=== PATIENT | female | born 1965 | race Caucasian/White ===

== ENCOUNTER 2018-06-22 17:21 | Observation (INO) ==
--- NOTE | 2018-06-22 17:55 | Emergency Department Note ---
ED Disposition Clinical Impression: Preseptal cellulitis of left eye Disposition: Admitted as Observation Condition on Discharge: Good Referrals: Odette Gaitan APRN [Primary Care Provider] - Time of Disposition: 20:28 - Critical Care Critical Care Time: No Attestation: On , the high probability of a clinically significant, sudden or life threatening deterioration of the following system(s) required my full and direct attention, intervention and personal management. The time I documented below is in addition to time spent performing reported procedures but includes the following listed in this critical care notation. Medical Decision Making - Elbert Inquiry Pt receiving controlled substance: No Elbert was queried for this patient: No Vital Signs: 06/22/18 17:44 06/22/18 18:11 06/22/18 19:42 Temperature 101.8 F H 99.8 F H Temperature Source Temporal Artery Scan Oral Pulse Rate [Right Brachial] 108 H Respiratory Rate 18 Blood Pressure [Right Arm] 152/85 H Blood Pressure Mean [Right Arm] 107 Blood Pressure Source [Right Arm] Automatic Cuff Blood Pressure Position [Right Arm] Sitting 02 Sat by Pulse Oximetry 90 L 94 L Oxygen Delivery Method Room Air Nasal Cannula Oxygen Flow Rate (LPM) 5 06/22/18 19:44 Temperature Temperature Source Pulse Rate [Right Brachial] 90 Respiratory Rate 18 Blood Pressure [Right Arm] 152/74 H Blood Pressure Mean [Right Arm] 100 Blood Pressure Source [Right Arm] Blood Pressure Position [Right Arm] 02 Sat by Pulse Oximetry 91 L Oxygen Delivery Method Nasal Cannula Oxygen Flow Rate (LPM) 4 - Lab Data Lab Results 06/22/18 17:50: WBC 9.6, RBC 4.37, Hgb 13.4, Hct 39.3, MCV 89.8, MCH 30.6, MCHC 34.1, RDW 14.3, Plt Count 236, MPV 7.7, Neut % (Auto) 79.1, Lymph % (Auto) 14.3, [place] % (Auto) 5.6, Eos % (Auto) 0.9, Baso % (Auto) 0.1, Neut # (Auto) 7.6, Lymph # (Auto) 1.4, [place] # (Auto) 0.5, Eos # (Auto) 0.1, Baso # (Auto) 0.0 06/22/18 17:50: Sodium 140, Potassium 3.7, Chloride 100, Carbon Dioxide 28, Anion Gap 15.7 H, BUN 27 H, Creatinine 1.21 H, Estimated Creat Clear 54, Estim ated GFR 46 L, Est GFR ( Amer) 56 L, Glucose 161 H, Calcium 9.3, Total Bilirubin 0.6, AST 13 L, ALT 21, Alkaline Phosphatase 97, Total Protein 8.3 H, Albumin 2.9 L, Globulin 5.4 H, Albumin/Globulin Ratio 0.5 L Result diagrams: 06/22/18 17:50 06/22/18 17:50 Orders (Tests/Meds): ED MEDICATIONS Generic Name Dose Route Start Last Admin Trade Name Ade PRN Reason Stop Dose Admin Sodium Chloride 1,000 mls @ 999 mls/hr 06/22/18 18:00 06/22/18 17:55 Sod Chlor 0.9% 1000ml Bag IV 06/22/18 19:00 999 mls/hr .Q1H1M ELIZABETH Administration Ceftriaxone Sodium 2 gm/ 100 mls @ 200 mls/hr 06/22/18 18:00 06/22/18 18:09 Sodium Chloride IV 07/06/18 17:59 200 mls/hr Q24H ELIZABETH Administration Protocol Miscellaneous 1 each 06/22/18 20:30 Vancomycin Consult Request * 07/22/18 20:29 CONSULT PHARMACY ELIZABETH Discontinued Medications Generic Name Dose Route Start Last Admin Trade Name Ade PRN Reason Stop Dose Admin Acetaminophen 1,000 mg 06/22/18 18:06 06/22/18 18:09 Tylenol 500mg Tablet PO 06/22/18 18:07 1,000 mg ONCE ONE Administration Ibuprofen 600 mg 06/22/18 18:07 06/22/18 18:09 Motrin 600mg Tablet PO 06/22/18 18:08 600 mg ONCE ONE Administration Iopamidol 75 ml 06/22/18 19:28 06/22/18 19:29 [id number]; 75ml Vial IV 06/22/18 19:29 75 ml ONCE ONE Administration Protocol Ondansetron HCl 4 mg 06/22/18 17:48 06/22/18 17:55 Zofran 4mg/2ml Vial IV 06/22/18 17:49 4 mg ONCE ONE Administration Sodium Chloride 10 ml 06/22/18 19:28 06/22/18 19:29 Rad-Saline Flush 10ml Syringe IV 06/22/18 19:29 10 ml ONCE ONE Administration ORDERS Category Date Time Status CT orbit BI w con Stat Cat Scan 06/22/18 17:45 Taken CXR 2 view (NOT portable) [XR chest 2V] Stat Exams 06/22/18 17:46 Taken Blood Culture Stat Micro 06/22/18 17:50 Received General Adult HPI - General Stated complaint: Eye swelling, weakness, Soa Time Seen by Provider: 06/22/18 17:53 - Related Data Home Medications Medication Instructions Recorded Confirmed Furosemide [Lasix 20mg tab] 20 mg PO DAILY 10/05/17 06/22/18 Insulin Glargine,Hum.rec.anlog 60 unit SQ HS 10/05/17 06/22/18 [Lantus Insulin 100units/mL 10mL vial] Insulin Lispro [HumaLOG 100 30 unit SQ TID 10/05/17 06/22/18 units/mL 3mL vial (SSI)] Lisinopril [Lisinopril 40mg Tablet] 40 mg PO DAILY 10/05/17 06/22/18 Metformin HCl [Glucophage 500mg 1,000 mg PO BID 10/05/17 06/22/18 Tablet] PARoxetine HCl [Paxil] 20 mg PO POSTTR 10/05/17 06/22/18 Pioglitazone HCl [Actos] 30 mg PO DAILY 10/05/17 06/22/18 Allergies Allergy/AdvReac Type Severity Reaction Status Date / Time Sulfa (Sulfonamide Allergy Intermediate I-RASH Verified 10/05/17 23:58 Antibiotics) [SULFA (SULFONAMIDE ANTIBIOTICS)] [facility] History - Hepatitis A Screen Attestation statement:: This patient has been screened for Hepatitis A risk factors. I have reviewed the patient's past medical history: Yes - Social History Alcohol Intake: never ROS Obtained: Yes All systems reviewed & no additional complaints - Constitutional Constitutional: Reports system reviewed and no additional complaints, except as docu, Reports chills, Reports fever(s), Reports headache(s), Reports lethargy, Reports malaise - Eyes Eyes: Reports system reviewed and no additional complaints, except as docu, Reports eye discharge, Reports irritation, Reports itchy eyes, Reports eye pain - ENT Ears, Nose, Mouth, and Throat: Reports system reviewed and no additional complaints, except as docu - Cardiovascular Cardiovascular: Reports system reviewed and no additional complaints, except as docu, Denies chest pain, Denies chest pain at rest, Denies lightheadedness, Denies palpitations, Denies pedal edema, Denies rapid heart rate - Respiratory Respiratory: Yes system reviewed and no additional complaints, except as docu, No chest congestion, Yes dyspnea, Yes dyspnea on exertion, No coughing up blood, No wheezing - Gastrointestinal Gastrointestingal: Reports: system reviewed and no additional complaints, except as docu, nausea, vomiting. Denies: diarrhea - Genitourinary Male Genitourinary: Reports system reviewed and no additional complaints, except as docu Female Genitourinary: Reports system reviewed and no additional complaints, except as docu, Denies difficulty voiding, Denies dysuria, Denies flank pain - Musculoskeletal Musculoskeletal: Reports system reviewed and no additional complaints, except as docu, Denies stiffness, Denies tingling - Integumentary/Breasts Skin/Breast: Reports system reviewed and no additional complaints, except as docu, Reports change in skin color, Reports itching, Reports rash, Reports skin pain, Reports skin swelling - Neurologic Neurologic: Reports system reviewed and no additional complaints, except as docu, Denies unsteadiness, Denies dizziness, Denies focal weakness, Denies lack of coordination, Denies seizure-like activity, Denies tremor(s), Denies vertigo - Hematologic/Lymphatic Henatologic/Lymphatic: Reports system reviewed and no additional complaints, except as docu, Denies easy bleeding, Denies easy bruising, Denies lymphadenopathy Physical Exam - General General appearance: alert, anxious, in distress - Head Head exam: atraumatic, normocephalic, other (erythema, cellulitic appearance left landon-orbital) - Eye Eye exam: Present: normal appearance, PERRL, EOMI - ENT ENT exam: Present: normal oropharynx, mucous membranes moist, mucous membranes dry - Neck Neck exam: Present: normal inspection, full ROM, trachea midline. Absent: meningismus, lymphadenopathy - Chest Chest inspection: Present: normal inspection, symmetric chest wall rise. Absent: tenderness - Respiratory Respiratory exam: Present: normal lung sounds bilaterally. Absent: respiratory distress - Cardiovascular Cardiovascular exam: Present: regular rate, normal rhythm. Absent: JVD - Abdominal Exam Abdominal exam: Present: soft, normal bowel sounds. Absent: distention, tenderness, guarding - Extremities Exam Extremities exam: Present: normal inspection, full ROM, normal capillary refill. Absent: calf tenderness - Neurological Exam Neurological exam: Present: alert, oriented X3 - Psychiatric Psychiatric exam: Present: normal affect, normal mood - Skin Skin exam: Present: warm, rash, erythema. Absent: dry, intact (landon-orbital erythema, weeping), normal color
[2018-06-22 18:08] LABS: Basophils % 0.1 % (0.1-2.0); Eosinophils # 0.1 K/mm3 (0.0-0.4); Eosinophils % 0.9 % (0.1-12.0); Hematocrit 39.3 % (37.0-47.0); Hemoglobin 13.4 g/dL (12.2-16.2); Lymphocytes # 1.4 K/mm3 (0.7-4.5); Lymphocytes % 14.3 % (10-50); Mean Corpuscular HGB Conc 34.1 g/dL (31.8-35.4); Mean Corpuscular Hemoglobin 30.6 pg (27.0-31.2); Mean Corpuscular Volume 89.8 fl (81-99); Mean Platelet Volume 7.7 fl (7.4-10.4); Monocytes # 0.5 K/mm3 (0.1-1.0); Monocytes % 5.6 % (1.7-9.3); Neutrophils # 7.6 K/mm3 (1.8-7.8); Neutrophils % 79.1 % (37.0-80.0); Platelet Count 236 K/mm3 (142-424); Red Blood Count 4.37 M/mm3 (4.20-5.40); Red Cell Distribution Width 14.3 % (11.5-17.5); White Blood Count 9.6 K/mm3 (4.8-10.8)
[2018-06-22 18:20] LABS: Albumin Level 2.9 gm/dL (3.4-5.0); Albumin/Globulin Ratio 0.5 (1.1-1.8); Anion Gap 15.7 mEq/L (5-15); Bilirubin,Total 0.6 mg/dL (0.2-1.0); Calcium 9.3 mg/dL (8.5-10.1); Globulin 5.4 gm/dl (1.3-3.2); Potassium 3.7 mmoL/L (3.5-5.1); Total Protein,Serum 8.3 gm/dL (6.4-8.2)
[2018-06-23 06:27] LABS: Basophils % 0.3 % (0.1-2.0); Eosinophils # 0.1 K/mm3 (0.0-0.4); Hemoglobin 12.3 g/dL (12.2-16.2); Lymphocytes # 1.8 K/mm3 (0.7-4.5); Lymphocytes % 18.6 % (10-50); Mean Corpuscular HGB Conc 34.1 g/dL (31.8-35.4); Mean Corpuscular Hemoglobin 30.5 pg (27.0-31.2); Mean Corpuscular Volume 89.4 fl (81-99); Mean Platelet Volume 7.7 fl (7.4-10.4); Monocytes # 0.7 K/mm3 (0.1-1.0); Monocytes % 7.5 % (1.7-9.3); Neutrophils % 72.6 % (37.0-80.0); Platelet Count 199 K/mm3 (142-424); Red Blood Count 4.02 M/mm3 (4.20-5.40); Red Cell Distribution Width 14.3 % (11.5-17.5); White Blood Count 9.7 K/mm3 (4.8-10.8)
[2018-06-23 06:39] LABS: Anion Gap 16.6 mEq/L (5-15); Potassium 4.6 mmoL/L (3.5-5.1)
[2018-06-23 06:48] LABS: Calcium 8.2 mg/dL (8.5-10.1)
--- NOTE | 2018-06-23 07:19 | History & Physical Report ---
*Admission Date: 06/22/18 *Chief complaint: Pain and swelling around left eye *History of present illness: 53-year-old female with diabetes and history of stroke presented to the emergency department with a 2-3-day history of left-sided facial pain with onset of swelling and redness around the left eye. Patient was seen late in the office last week believing she had an ear infection on the left due to some pain anterior to the left ear. Patient did not have any identifiable source of infection. However yesterday during the day the patient developed rapid onset of swelling and pain around the left eye with erythematous skin changes. She presented to the emergency department where she was identified as having cellulitis. A CT scan has showed a preseptal cellulitis. Patient has been admitted for IV antibiotics. From late last night to early this morning the patient states there has not really been any significant change in her cellulitis. She does not recall having any fevers. She denies chills. Vision is affected because of the swelling around the left eye. [facility] History I have reviewed the patient's past medical history: Yes Medical History: Reports:: Diabetes Mellitus Type 2, Hyperlipidemia, Hypertension Denies:: Cancer, Diabetes Mellitus Type 1, MRSA Have you ever received a pneumonia vaccine?: No Have you received a flu vaccine this season?: Yes Other Medical History: Reports: Sinus Problems Other Surgeries: Yes: Other (gastric sleeve, sinus sx) Amputation: No Fractures: No - *Social History Educational Level: Completed College Smoking Status: Never smoker Alcohol Intake: never Occupational Status: disabled Housing: house Household Members: children Travel in the last 8 weeks: None - Psychiatric History Expresses thoughts of harming self/others: None Suicide Plan Description: No Plan *Family Hx:: Coronary Artery Disease, Heart Attack, Hyperlipidemia, Hypertension, Kidney Disease, Stroke Review of Systems - Review of Systems Review of systems:: pertinent systems reviewed and negative unless documented below - Constitutional Denies body ache(s), Denies chills, Denies fever(s) - *Musculoskeletal Reports muscle weakness (Residual left arm and leg weakness from prior stroke) - Integumentary/Breasts Reports other Comments: Psoriatic plaques - *Neurologic Reports headache(s), Denies unsteadiness, Denies dizziness, Denies localized weakness, Denies lack of coordination, Denies seizure-like activity, Denies tingling, Denies tremor(s), Denies dizziness Meds Home Medications Medication Instructions Recorded Confirmed Type Furosemide [Lasix 20mg tab] 20 mg PO DAILY 10/05/17 06/23/18 History Insulin Glargine,Hum.rec.anlog 60 unit SQ HS 10/05/17 06/23/18 History [Lantus Insulin 100units/mL 10mL vial] Insulin Lispro [HumaLOG 100 30 unit SQ TIDWM 10/05/17 06/23/18 History units/mL 3mL vial (SSI)] Lisinopril [Lisinopril 40mg Tablet] 40 mg PO DAILY 10/05/17 06/23/18 History Metformin HCl [Glucophage 500mg 1,000 mg PO BID 10/05/17 06/23/18 History Tablet] PARoxetine HCl [Paxil] 20 mg PO HS 10/05/17 06/23/18 History Pioglitazone HCl [Actos] 30 mg PO DAILY 10/05/17 06/23/18 History Allergies Allergy/AdvReac Type Severity Reaction Status Date / Time Sulfa (Sulfonamide Allergy Intermediate I-RASH Verified 10/05/17 23:58 Antibiotics) [SULFA (SULFONAMIDE ANTIBIOTICS)] Exam Vital signs and Labs for Last 24 Hours: Temp Pulse Resp BP Pulse Ox 98.0 F 86 20 160/77 H 97 06/23/18 04:00 06/23/18 04:00 06/23/18 04:00 06/23/18 04:00 06/23/18 04:00 Laboratory Results - last 24 hr 06/22/18 17:50: WBC 9.6, RBC 4.37, Hgb 13.4, Hct 39.3, MCV 89.8, MCH 30.6, MCHC 34.1, RDW 14.3, Plt Count 236, MPV 7.7, Neut % (Auto) 79.1, Lymph % (Auto) 14.3, [place] % (Auto) 5.6, Eos % (Auto) 0.9, Baso % (Auto) 0.1, Neut # (Auto) 7.6, Lymph # (Auto) 1.4, [place] # (Auto) 0.5, Eos # (Auto) 0.1, Baso # (Auto) 0.0 06/22/18 17:50: Sodium 140, Potassium 3.7, Chloride 100, Carbon Dioxide 28, Anion Gap 15.7 H, BUN 27 H, Creatinine 1.21 H, Estimated Creat Clear 54, Estimated GFR 46 L, Est GFR ( Amer) 56 L, Glucose 161 H, Calcium 9.3, Total Bilirubin 0.6, AST 13 L, ALT 21, Alkaline Phosphatase 97, Total Protein 8.3 H, Albumin 2.9 L, Globulin 5.4 H, Albumin/Globulin Ratio 0.5 L 06/22/18 21:34: POC Glucose 189 H 06/23/18 05:45: WBC 9.7, RBC 4.02 L, Hgb 12.3, Hct 36.0 L, MCV 89.4, MCH 30.5, MCHC 34.1, RDW 14.3, Plt Count 199, MPV 7.7, Neut % (Auto) 72.6, Lymph % (Auto) 18.6, [place] % (Auto) 7.5, Eos % (Auto) 1.0, Baso % (Auto) 0.3, Neut # (Auto) 7.0, Lymph # (Auto) 1.8, [place] # (Auto) 0.7, Eos # (Auto) 0.1, Baso # (Auto) 0.0 06/23/18 05:45: Sodium 141, Potassium 4.6 D, Chloride 105, Carbon Dioxide 24, Anion Gap 16.6 H, BUN 26 H, Creatinine 1.13 H, Estimated Creat Clear 57, Estimated GFR 50 L, Est GFR ( Amer) 61, Glucose 180 H, Calcium 8.2 L D I & O for Last 24 hours: Intake & Output 06/20/18 06/21/18 06/22/18 06/23/18 11:59 11:59 11:59 11:59 Intake Total 1391 / 1391 Balance 1391 / 1391 Weight 324 lb 9 oz Narrative: Patient is awake and alert. There is noticeable erythema and swelling of the periorbital tissues of the left. Patient's eye is swollen shut. There is no fluid draining from the left eye. She has a psoriatic plaque on the left frontal scalp that is nontender. She has an enlarged preauricular lymph node on the left that is mildly tender. Inferior periorbital tissues are tender to touch as well. Tympanic membranes did not have any erythema. Oropharynx is moist and clear. Lungs are clear to auscultation. Heart has a regular rate and rhythm. Abdomen is soft and nontender Assessment and Plan (1) Preseptal cellulitis of left eye Current visit: Yes Status: Acute Category: Medical Code(s): L03.213 - Periorbital cellulitis (2) Diabetes mellitus with hyperglycemia Current visit: Yes Status: Acute Category: Medical Code(s): E11.65 - Type 2 diabetes mellitus with hyperglycemia (3) Psoriasis Current visit: Yes Status: Acute Category: Medical Code(s): L40.9 - Psoriasis, unspecified - Assessment and plan all Dx Assessment and Plan for all problems:: I suspect her cellulitis is the likely portal of entry for infection. We did discuss referral to dermatology in the future. Patient will be continued on IV antibiotics including vancomycin and Unasyn. Patient will be given home medications for her diabetes mellitus. She has been encouraged to get out of bed and ambulate. Her appetite is at baseline. IV fluids will be discontinued.
--- NOTE | 2018-06-23 07:28 | Pharmacy Consult Notes ---
[facility] Pharmacy VTE Monitoring - Patient Demographics Admission date: 06/22/18 Report Date: 06/23/18 Time: 07:28 Allergies/Adverse Reactions: Patient Allergies Sulfa (Sulfonamide Antibiotics) [SULFA (SULFONAMIDE ANTIBIOTICS)] Allergy (Intermediate, Verified 10/05/17 23:58) I-RASH Height: 1.73 m Weight: 147.219 kg Patient Problems: Current Active Problems Preseptal cellulitis of left eye (Acute) Diabetes mellitus with hyperglycemia (Acute) Psoriasis (Acute) - VTE Risk Labs: VTE Related Lab Results Hgb 12.3 g/dL (12.2-16.2) 06/23/18 05:45 Hct 36.0 % (37.0-47.0) L 06/23/18 05:45 Plt Count 199 K/mm3 (142-424) 06/23/18 05:45 BUN 26 mg/dL (7-18) H 06/23/18 05:45 Creatinine 1.13 mg/dL (0.55-1.02) H 06/23/18 05:45 Estimated Creat Clear 57 mL/min (50-200) 06/23/18 05:45 VTE Score: 7 VTE Risk Level: Moderate Risk - Prophylaxis VTE Prophylaxis Ordered?: Yes Types of VTE Prophylaxis: TEDS Knee High Location of Applied Device: Bilateral Lower Extremeties - VTE Diagnosis Confirmed Treatment or plan recommended: Continue Current Treatment
--- NOTE | 2018-06-23 08:28 | Pharmacy Consult Notes ---
- Pharmacy Consult Date: 06/23/18 Time: 08:26 Referring provider: DR. BUSTAMANTE Reason for Consult:: VANCOMYCIN DOSING Allergies and ADEs:: Allergies Allergy/AdvReac Type Severity Reaction Status Date / Time Sulfa (Sulfonamide Allergy Intermediate I-RASH Verified 10/05/17 23:58 Antibiotics) [SULFA (SULFONAMIDE ANTIBIOTICS)] Home Medications:: Home Medications Medication Instructions Recorded Confirmed Type Furosemide [Lasix 20mg tab] 20 mg PO DAILY 10/05/17 06/23/18 History Insulin Glargine,Hum.rec.anlog 60 unit SQ HS 10/05/17 06/23/18 History [Lantus Insulin 100units/mL 10mL vial] Insulin Lispro [HumaLOG 100 30 unit SQ TIDWM 10/05/17 06/23/18 History units/mL 3mL vial (SSI)] Lisinopril [Lisinopril 40mg Tablet] 40 mg PO DAILY 10/05/17 06/23/18 History Metformin HCl [Glucophage 500mg 1,000 mg PO BID 10/05/17 06/23/18 History Tablet] PARoxetine HCl [Paxil] 20 mg PO HS 10/05/17 06/23/18 History Pioglitazone HCl [Actos] 30 mg PO DAILY 10/05/17 06/23/18 History Height: 1.73 m Weight: 147.219 kg Laboratory Results:: Laboratory Results - last 24 hr 06/22/18 17:50: WBC 9.6, RBC 4.37, Hgb 13.4, Hct 39.3, MCV 89.8, MCH 30.6, MCHC 34.1, RDW 14.3, Plt Count 236, MPV 7.7, Neut % (Auto) 79.1, Lymph % (Auto) 14.3, [place] % (Auto) 5.6, Eos % (Auto) 0.9, Baso % (Auto) 0.1, Neut # (Auto) 7.6, Lymph # (Auto) 1.4, [place] # (Auto) 0.5, Eos # (Auto) 0.1, Baso # (Auto) 0.0 06/22/18 17:50: Sodium 140, Potassium 3.7, Chloride 100, Carbon Dioxide 28, Anion Gap 15.7 H, BUN 27 H, Creatinine 1.21 H, Estimated Creat Clear 54, Estimated GFR 46 L, Est GFR ( Amer) 56 L, Glucose 161 H, Calcium 9.3, Total Bilirubin 0.6, AST 13 L, ALT 21, Alkaline Phosphatase 97, Total Protein 8.3 H, Albumin 2.9 L, Globulin 5.4 H, Albumin/Globulin Ratio 0.5 L 06/22/18 21:34: POC Glucose 189 H 06/23/18 05:45: WBC 9.7, RBC 4.02 L, Hgb 12.3, Hct 36.0 L, MCV 89.4, MCH 30.5, MCHC 34.1, RDW 14.3, Plt Count 199, MPV 7.7, Neut % (Auto) 72.6, Lymph % (Auto) 18.6, [place] % (Auto) 7.5, Eos % (Auto) 1.0, Baso % (Auto) 0.3, Neut # (Auto) 7.0, Lymph # (Auto) 1.8, [place] # (Auto) 0.7, Eos # (Auto) 0.1, Baso # (Auto) 0.0 06/23/18 05:45: Sodium 141, Potassium 4.6 D, Chloride 105, Carbon Dioxide 24, Anion Gap 16.6 H, BUN 26 H, Creatinine 1.13 H, Estimated Creat Clear 57, Estimated GFR 50 L, Est GFR ( Amer) 61, Glucose 180 H, Calcium 8.2 L D Medical History: Reports:: Diabetes Mellitus Type 2, Hyperlipidemia, Hypertension Denies:: Cancer, Diabetes Mellitus Type 1, MRSA Assessment and Plan (1) Preseptal cellulitis of left eye Current visit: Yes Status: Acute Category: Medical Code(s): L03.213 - Periorbital cellulitis (2) Diabetes mellitus with hyperglycemia Current visit: Yes Status: Acute Category: Medical Code(s): E11.65 - Type 2 diabetes mellitus with hyperglycemia (3) Psoriasis Current visit: Yes Status: Acute Category: Medical Code(s): L40.9 - Psoriasis, unspecified - Assessment and plan all Dx Assessment and Plan for all problems:: BASED ON PATIENT'S FACTORS, RECOMMEND CONTINUING WITH VANCOMYCIN 2500 MG Q18H. PHARMACY WILL FOLLOW DAILY AND ADJUST APPROPRIATE. NIALL GIRON, AISHAD
--- NOTE | 2018-06-24 06:40 | Progress Note ---
Internal Medicine - PN: Subj *Date: 06/24/18 *Time: 06:38 Interval history: Patient has no complaints this morning. She feels like the swelling around her left eye is beginning to improve and the skin is less taut. Exam Vital signs and Labs for Last 24 Hours: Temp Pulse Resp BP Pulse Ox 98.6 F 81 20 136/50 L 90 L 06/23/18 19:24 06/23/18 21:25 06/23/18 21:25 06/23/18 19:24 06/23/18 21:25 Laboratory Results - last 24 hr 06/23/18 05:45: Sodium 141, Potassium 4.6 D, Chloride 105, Carbon Dioxide 24, Anion Gap 16.6 H, BUN 26 H, Creatinine 1.13 H, Estimated Creat Clear 57, Estimated GFR 50 L, Est GFR ( Amer) 61, Glucose 180 H, Calcium 8.2 L D 06/23/18 06:01: POC Glucose 195 H 06/23/18 11:01: POC Glucose 224 H 06/23/18 16:32: POC Glucose 128 H 06/23/18 21:41: POC Glucose 175 H I & O for Last 24 hours: Intake & Output 06/21/18 06/22/18 06/23/18 06/24/18 11:59 11:59 11:59 11:59 Intake Total 1631 / 1631 1060 / 1060 Balance 1631 / 1631 1060 / 1060 Weight 324 lb 9 oz 324 lb 8.997 oz Narrative: She looks well. The periorbital edema around the left eye is improving. There is less induration around the eye. Erythema remains about the same as yesterday Assessment and Plan (1) Preseptal cellulitis of left eye Current visit: Yes Status: Acute Category: Medical Code(s): L03.213 - Periorbital cellulitis (2) Diabetes mellitus with hyperglycemia Current visit: Yes Status: Acute Category: Medical Code(s): E11.65 - Type 2 diabetes mellitus with hyperglycemia (3) Psoriasis Current visit: Yes Status: Acute Category: Medical Code(s): L40.9 - Psoriasis, unspecified - Assessment and plan all Dx Assessment and Plan for all problems:: Continue IV Unasyn and vancomycin. Patient is showing early signs of improvement.
--- NOTE | 2018-06-24 10:16 | Pharmacy Consult Notes ---
- Pharmacy Consult Date: 06/24/18 Time: 10:14 Referring provider: DR. BUSTAMANTE Reason for Consult:: VANCOMYCIN TROUGH LEVEL Allergies and ADEs:: Allergies Allergy/AdvReac Type Severity Reaction Status Date / Time Sulfa (Sulfonamide Allergy Intermediate I-RASH Verified 10/05/17 23:58 Antibiotics) [SULFA (SULFONAMIDE ANTIBIOTICS)] Home Medications:: Home Medications Medication Instructions Recorded Confirmed Type Insulin Glargine,Hum.rec.anlog 60 unit SQ HS 10/05/17 06/23/18 History [Lantus Insulin 100units/mL 10mL vial] Insulin Lispro [HumaLOG 100 30 unit SQ TIDWM 10/05/17 06/23/18 History units/mL 3mL vial (SSI)] Lisinopril [Lisinopril 40mg Tablet] 40 mg PO DAILY 10/05/17 06/23/18 History Metformin HCl [Glucophage 500mg 1,000 mg PO BID 10/05/17 06/23/18 History Tablet] PARoxetine HCl [Paxil] 20 mg PO HS 10/05/17 06/23/18 History Pioglitazone HCl [Actos] 30 mg PO DAILY 10/05/17 06/23/18 History Aspirin [Aspirin 81mg EC Tab] 81 mg PO DAILY 06/23/18 06/23/18 History Atorvastatin Calcium [Atorvastatin 40 mg PO DAILY 06/23/18 06/23/18 History 40mg Tab] Cholecalciferol (Vitamin D3) 50,000 unit PO WEEKLY 06/23/18 06/23/18 History [Vitamin D3 50,000 unit Cap] Cyanocobalamin (Vitamin B-12) 1,000 mcg PO DAILY 06/23/18 06/23/18 History [Vitamin B-12 1000mcg Tablet] Furosemide [Furosemide 40MG tAB] 40 mg PO DAILY 06/23/18 06/23/18 History Loratadine [Claritin] 10 mg PO DAILY 06/23/18 06/23/18 History Montelukast Sodium [Montelukast 10 mg PO HS 06/23/18 06/23/18 History 10mg Tab] [place]-3/Dha/Epa/Fish Oil [Fish Oil 2,000 mg PO BID 06/23/18 06/23/18 History 1,000 mg Softgel] Height: 1.73 m Weight: 148.778 kg Laboratory Results:: Laboratory Results - last 24 hr 06/23/18 06:01: POC Glucose 195 H 06/23/18 11:01: POC Glucose 224 H 06/23/18 16:32: POC Glucose 128 H 06/23/18 21:41: POC Glucose 175 H 06/24/18 06:08: POC Glucose 165 H 06/24/18 08:58: Vancomycin Trough 18.3 Medical History: Reports:: Diabetes Mellitus Type 2, Hyperlipidemia, Hypertension Denies:: Cancer, Diabetes Mellitus Type 1, MRSA Assessment and Plan (1) Preseptal cellulitis of left eye Current visit: Yes Status: Acute Category: Medical Code(s): L03.213 - Periorbital cellulitis (2) Diabetes mellitus with hyperglycemia Current visit: Yes Status: Acute Category: Medical Code(s): E11.65 - Type 2 diabetes mellitus with hyperglycemia (3) Psoriasis Current visit: Yes Status: Acute Category: Medical Code(s): L40.9 - Psoriasis, unspecified - Assessment and plan all Dx Assessment and Plan for all problems:: BASED ON VANCOMYCIN TROUGH LEVEL AND PATIENT FACTORS, RECOMMEND EXTENDING THE INTERVAL TO VANCOMYCIN 2500 MG IV Q24H. PHARMACY WILL CONTINUE TO MONITOR DAILY AND ADJUST APPROPRIATE.
--- NOTE | 2018-06-24 16:02 | Discharge Summary ---
General - General Admission date:: 06/22/18 Discharge date: 06/24/18 HPI HPI: 53-year-old female with diabetes and history of stroke presented to the emergency department with a 2-3-day history of left-sided facial pain with onset of swelling and redness around the left eye. Patient was seen late in the office last week believing she had an ear infection on the left due to some pain anterior to the left ear. Patient did not have any identifiable source of infection. However yesterday during the day the patient developed rapid onset of swelling and pain around the left eye with erythematous skin changes. She presented to the emergency department where she was identified as having cellulitis. A CT scan has showed a preseptal cellulitis. Patient has been admitted for IV antibiotics. From late last night to early this morning the patient states there has not really been any significant change in her cellulitis. She does not recall having any fevers. She denies chills. Vision is affected because of the swelling around the left eye. Hospital Course Hospital Course: Patient was admitted to 2nd floor medical surgical unit for administration of IV antibiotics unasyn, rocephin, and vancomycin. She has been responding well and planned to continue with this treatment but IV access was lost and not regained through multiple attempts. Oral doxy and augmentin were given today. Patient feels up to going home this evening if appropriate. Objective Vital signs: Temp Pulse Resp BP Pulse Ox 97.8 F 78 18 119/41 L 92 L 06/24/18 08:00 06/24/18 08:00 06/24/18 08:00 06/24/18 08:00 06/24/18 08:00 no acute distress - *Routine HEENT Exam Comments: left facial/oribital swelling any erythema noted, patient is able to slightly open left eye now - *Routine Neck Exam Present: supple - *Routine Respiratory Exam Present: CTA bilaterally. Absent: accessory muscle use - *Routine Cardiovascular Exam Present: RRR, Normal S1, Normal S2. Absent: bradycardia, tachycardia - *Routine Abdominal Exam Present: soft, normoactive bowel sounds. Absent: tenderness - *Routine Extremities Exam Absent: edema - *Routine Neurological Exam Present: alert, oriented X3 - Routine Psychiatric Exam Present: normal affect Results Labs on day of discharge: Labs from last 24 hours 06/24/18 06/24/18 06/24/18 12:11 08:58 08:28 POC Glucose 116 H 249 H Vancomycin Trough 18.3 06/24/18 06/23/18 06/23/18 06:08 21:41 16:32 POC Glucose 165 H 175 H 128 H Vancomycin Trough 06/23/18 06:01 POC Glucose 195 H Vancomycin Trough DS: Diagnosis - Discharge Diagnosis (1) Preseptal cellulitis of left eye Status: Acute (2) Diabetes mellitus with hyperglycemia Status: Acute (3) Psoriasis Status: Acute Discharge Plan - Patient Discharge Instructions ACTIVITY: Continue current activity Patient Instructions: DI for Orbital Cellulitis - Follow up Plan Follow up with: Hilaria Craven APRN [Nurse Practitioner] - 06/27/18 9:00 am Disposition: Home, Self-Correction Medications: Home Medications Medication Instructions Recorded Confirmed Type Insulin Glargine,Hum.rec.anlog 60 unit SQ HS 10/05/17 06/23/18 History [Lantus Insulin 100units/mL 10mL vial] Insulin Lispro [HumaLOG 100 30 unit SQ TIDWM 10/05/17 06/23/18 History units/mL 3mL vial (SSI)] Lisinopril [Lisinopril 40mg Tablet] 40 mg PO DAILY 10/05/17 06/23/18 History Metformin HCl [Glucophage 500mg 1,000 mg PO BID 10/05/17 06/23/18 History Tablet] PARoxetine HCl [Paxil] 20 mg PO HS 10/05/17 06/23/18 History Pioglitazone HCl [Actos] 30 mg PO DAILY 10/05/17 06/23/18 History Aspirin [Aspirin 81mg EC Tab] 81 mg PO DAILY 06/23/18 06/23/18 History Atorvastatin Calcium [Atorvastatin 40 mg PO DAILY 06/23/18 06/23/18 History 40mg Tab] Cholecalciferol (Vitamin D3) 50,000 unit PO WEEKLY 06/23/18 06/23/18 History [Vitamin D3 50,000 unit Cap] Cyanocobalamin (Vitamin B-12) 1,000 mcg PO DAILY 06/23/18 06/23/18 History [Vitamin B-12 1000mcg Tablet] Furosemide [Furosemide 40MG tAB] 40 mg PO DAILY 06/23/18 06/23/18 History Loratadine [Claritin] 10 mg PO DAILY 06/23/18 06/23/18 History Montelukast Sodium [Montelukast 10 mg PO HS 06/23/18 06/23/18 History 10mg Tab] [place]-3/Dha/Epa/Fish Oil [Fish Oil 2,000 mg PO BID 06/23/18 06/23/18 History 1,000 mg Softgel] Amoxicillin/Potassium Clav 2 each PO BID 10 Days #20 tab 06/24/18 Rx [Augmentin 500mg tab] Doxycycline Hyclate [Vibra-Tab 100 mg PO BID 10 Days #20 tab 06/24/18 Rx 100mg tablet] Prescriptions/Medication Reconciliation: New Doxycycline Hyclate [Vibra-Tab 100mg tablet] 100 mg PO BID 10 Days #20 tab Amoxicillin/Potassium Clav [Augmentin 500mg tab] 2 each PO BID 10 Days #20 tab Continue Insulin Glargine,Hum.rec.anlog [Lantus Insulin 100units/mL 10mL vial] 60 unit SQ HS Insulin Lispro [HumaLOG 100 units/mL 3mL vial (SSI)] 30 unit SQ TIDWM PARoxetine HCl [Paxil] 20 mg PO HS Metformin HCl [Glucophage 500mg Tablet] 1,000 mg PO BID Lisinopril [Lisinopril 40mg Tablet] 40 mg PO DAILY Pioglitazone HCl [Actos] 30 mg PO DAILY [place]-3/Dha/Epa/Fish Oil [Fish Oil 1,000 mg Softgel] 2,000 mg PO BID Cyanocobalamin (Vitamin B-12) [Vitamin B-12 1000mcg Tablet] 1,000 mcg PO DAILY Aspirin [Aspirin 81mg EC Tab] 81 mg PO DAILY Loratadine [Claritin] 10 mg PO DAILY Cholecalciferol (Vitamin D3) [Vitamin D3 50,000 unit Cap] 50,000 unit PO WEEKLY Furosemide [Furosemide 40MG tAB] 40 mg PO DAILY Atorvastatin Calcium [Atorvastatin 40mg Tab] 40 mg PO DAILY Montelukast Sodium [Montelukast 10mg Tab] 10 mg PO HS
== END 2018-06-24 16:40 | disposition home or self-care (01) ==
LOC: 2ND 17:21 → ER 17:21 → 2ND 21:05
PROVIDERS: ADMIT Internal Medicine Adolescent Medicine; ATTEND Family Medicine
CPT/HCPCS: 36415; 70481; 71020; 71046; 80048; 80053; 80202; 82962; 85025; 87040; 96365; 96367; 96375; 99284; G0378; J2405; J3370; Q9967

== ENCOUNTER → 2018-07-08 09:12 | Outpatient (POV) | payer MEDICARE, SELFPAY | PROVIDERS: Visit Provider Dermatology | DX: Z00.00 Encounter for general adult medical examination without abnormal findings (principal) ==

== ENCOUNTER → 2019-04-30 10:49 | Outpatient (CLI) | payer MEDICARE, SELFPAY ==
--- NOTE | 2019-04-30 11:13 | XR_ITS ---
PROCEDURE: XR CHEST 2V CLINICAL HISTORY: SOB COMPARISON: No exams were available for comparison FINDINGS: The lung frazier are well-expanded and appear clear of infiltrate. There is mild borderline cardiomegaly however the vascularity is normal and there is no pleural fluid. There are mild multilevel degenerate changes of the thoracic spine. IMPRESSION: Mild cardiomegaly, no acute chest pathology noted Dictated by: Dr. Andrey Herrera MD 04/30/2019 11:[address] Andrey Herrera MD in [place] 04/30/2019 11:57
[2019-04-30 11:32] LABS: Basophils % 0.3 % (0.1-2.0); Eosinophils # 0.1 K/mm3 (0.0-0.4); Eosinophils % 1.8 % (0.1-12.0); Hematocrit 34.5 % (37.0-47.0); Hemoglobin 10.5 g/dL (12.2-16.2); Lymphocytes % 29.1 % (10-50); Mean Corpuscular HGB Conc 30.5 g/dL (31.8-35.4); Mean Corpuscular Hemoglobin 29.1 pg (27.0-31.2); Mean Corpuscular Volume 95.3 fl (81-99); Mean Platelet Volume 7.8 fl (7.4-10.4); Monocytes # 0.3 K/mm3 (0.1-1.0); Monocytes % 5.1 % (1.7-9.3); Neutrophils # 4.3 K/mm3 (1.8-7.8); Neutrophils % 63.7 % (37.0-80.0); Platelet Count 273 K/mm3 (142-424); Red Blood Count 3.63 M/mm3 (4.20-5.40); Red Cell Distribution Width 14.3 % (11.5-17.5); White Blood Count 6.7 K/mm3 (4.8-10.8)
--- NOTE | 2019-04-30 11:45 | ECG_ITS ---
APPROVED REPORT Exam: Resting ECG HR:75 bpm ECG Measurements Heart Rate 75 AXES WI 180 P 42 QRSd 90 QRS -11 QT 440 T 42 QTc 491 <Conclusion> Normal sinus rhythm Possible Left atrial enlargement Left ventricular hypertrophy Prolonged QT Abnormal ECG Electronically signed by : Domingo Pineda, 05/01/2019 08:11:36
[2019-04-30 12:52] LABS: Alanine Aminotransferase 16 U/L (12-78); Albumin Level 2.5 gm/dL (3.4-5.0); Albumin/Globulin Ratio 0.6 (1.1-1.8); Alkaline Phosphatase 87 U/L (46-116); Anion Gap 12.1 mEq/L (5-15); Aspartate Amino Transferase 13 U/L (15-37); Bilirubin,Total 0.3 mg/dL (0.2-1.0); Blood Urea Nitrogen 30 mg/dL (7-18); Calcium 8.5 mg/dL (8.5-10.1); Carbon Dioxide 30 mmol/L (21.0-32.0); Chloride 107 mmol/L (98-107); Chol/HDL Ratio 4.3 (1-3.5); Cholesterol 200 mg/dL (140-200); Creatinine,Serum 1.41 mg/dL (0.55-1.02); Estimated Glomerular Filt Rate 39 ml/min (>60); GFR (African American) 47 ML/MIN (>60); Globulin 4.4 gm/dl (1.3-3.2); HDL Cholesterol 47 mg/dL (29-89); LDL Cholesterol 118 mg/dL (0-130); Potassium 4.1 mmoL/L (3.5-5.1); Sodium 145 mmol/L (136-145); Thyroid Stimulating Hormone 3.57 uIU/ml (0.358-3.740); Total Protein,Serum 6.9 gm/dL (6.4-8.2); Triglycerides 177 mg/dL (30-200); VLDL Cholesterol 35 mg/dL (0-40)
[2019-04-30 12:58] LABS: Glucose 43 mg/dL (74-106)
== END ==
PROVIDERS: Visit Provider Nurse Practitioner Family
DX: E78.2 Mixed hyperlipidemia (principal); R06.02 Shortness of breath; R60.9 Edema, unspecified; I10 Essential (primary) hypertension
CPT/HCPCS: 36415; 71046; 80053; 80061; 83880; 84443; 85025; 93005

== ENCOUNTER → 2019-06-08 06:07 | Outpatient (CLI) | payer MEDICARE, SELFPAY ==
--- NOTE | 2019-06-08 06:09 | CA_ITS ---
APPROVED REPORT EXAM: Comprehensive 2D, Doppler, and color-flow Echocardiogram Director Of Development: Hilaria Portillo RVT Ht: 5 ft 8 in Wt: 318lbs BSA: 2.49 BP: 177/63 mmHg Indications: Murmur, Shortness of Breath, Obesity, Dyspnea, Hyperlipidemia, Hypertension/HDD 2D Dimensions LVOT 1.94 cm (M/F) 1.5-2.5 M-Mode Dimensions RVDd 3.13 cm (0.9-2.6) LVDd 6.62 cm (3.5-5.7) LVDs 5.28 cm (3.5-5.7) IVSd 1.65 cm (0.6-1.1) PWd 0.80 cm (0.6-1.1) EF (Teich) 40.40% FS 20.20% EDV (Teich) 225.10 mL ESV (Teich) 134.20 mL LV Diastology E/A Ratio 0.74 Mitral Valve MV A Velocity 105.00 (40-130 cm/s) Left Ventricle Left atrium is mildly enlarged, left ventricle is normal size, mild concentric left ventricular hypertrophy, visually estimated ejection fraction 55% with no regional wall motion abnormality. Grade 1 diastolic dysfunction seen with tissue Doppler evidence of raise left atrial pressure. Right Ventricle Right atrium and right ventricle mildly enlarged with normal contractility. Aortic Valve Aortic valve is thickened and calcified leaflet chordae display good mobility. There is no aortic insufficiency. Mitral Valve Mitral valve is grossly normal, there is moderate mitral regurgitation. Tricuspid Valve Tricuspid valve is grossly normal, there is mild tricuspid regurgitation. Pulmonic Valve Pulmonic valve is poorly visualized. Great Vessels Aortic root is normal size. Pericardium No significant pericardial effusion noted. Conclusion 1. Biatrial enlargement, normal left ventricular size, mild concentric left ventricular hypertrophy, visually estimated ejection fraction 55% with no regional wall motion abnormality, grade 1 diastolic dysfunction seen with tissue Doppler evidence of raise left atrial pressure. 2. Mildly enlarged right ventricle with normal contractility. 3. Moderate mitral and mild tricuspid regurgitation. 4. No significant pericardial effusion noted. Electronically signed by : Shayan Wesley, 06/09/2019 15:02:33
--- NOTE | 2019-06-08 06:30 | NM_ITS ---
APPROVED REPORT Exam: Nuclear Stress Test Indication: SOB, HTN, DM, High cholesterol, Family history Patient Location: Outpatient Stress Tech: [place] [place] Tech:Dary Palacios, ARRT, RT (R)(N) Ht: 5 ft 8 in Wt: 310 lbs Bra Size: 46DDD HR: 70 bpm BP: 168/72 mmHg BSA: 2.46 m2 BMI: 47.1 History: SOB, HTN, DM, High cholesterol, Family history Procedure: Patient received a 0.4 mg of intravenous Lexiscan, resting heart rate 70 bpm, resting blood pressure 168/72 mmHg, with Lexiscan maximum heart rate achived was 82 bpm which is Less than 85 % of the maximum predicted heart rate and blood pressure was 171/59 mmHg. With Lexiscan, patient denied any complaint of chest pain. Electrocardiogram Resting electrocardiogram showed sinus rhythm, with Lexiscan there is less than 1.[address] segment depression noted from the baseline EKG. Cardiac Stress and Resting SPECT Images: Cardiac Stress and Resting SPECT images were obtained using technetium 99m Myoview 29.1 mCi stress and 10.53 mCi at rest. Gated SPECT for analysis of segmental wall motion and calculation of the ejection fraction also done. Cardiac stress and rest SPECT images show a fixed defect in the anterior wall with normal contracted gated SPECT is likely secondary to soft tissue attenuation, in addition there is a fixed defect in the inferior wall with reduced contractility is likely secondary to prior myocardial scarring without significant landon-infarct ischemia. Computer derived ejection fraction is 59% with moderate inferior wall hypokinesis. Right ventricle is normal size and contractility. Conclusion: 1. The EKG portion of the Lexiscan Myoview is nondiagnostic. 2. Scintigraphic evidence of myocardial scarring involving the inferior and posterior basal wall, computer derived ejection fraction 59% with moderate inferior wall hypokinesis, right ventricle is normal size and contractility. 3. Abnormal Lexiscan Myoview study. Electronically signed by : Shayan eWsley, 06/12/2019 12:12:23
--- NOTE | 2019-06-08 06:30 | CA_ITS ---
APPROVED REPORT Exam: Pharmacologic Technologist: [facility] [place] Ht: 5 ft 8 in Wt: 310 lbs BSA: 2.46 m2 HR: 70 bpm BP: 168/72 mmHg Indications: Shortness of Air Medical History Medications: Furosemide (LASIX),,,,, Aspirin,,,,, Metformin,,,,, Vitamin B12,,,,, Vitamin D3,,,,, Atorvastatin,,,,, Carvedilol,,,,, Pioglitazone,,,,, INSULIN,,,,, Montelukast,,,,, OxYCODONE,,,,, LoraTidine,,,,, Stress Test Details Test: LEXISCAN HR Resting HR: 69 bpm Max Heart Rate (APMHR): 165 bpm Max HR Achieved: 90 bpm Target HR (85% APMHR): 140 bpm % of APMHR: 54 Recovery HR: 80 bpm BP Resting BP: 168.0/72.0 mmHg Max BP: 171.0/59.0 mmHg Recovery BP: 156.0/59.0 mmHg ECG Clinical Reason for Termination: Completed Protocol Exercise duration: 04:00 min Highest Stage Achieved: Exercise capacity: 1.0 METs Stress ECG Conclusion Resting ECG: Normal sinus rhythm, PRWP anteriorly. Symptoms: No chest pain. Arrhythmias/Ectopy: None ST-T Changes: < 1.[address] segment changes. Conclusion: Non-diagnostic lexiscan stress test. Patient received the infusion per protocol without chest pain, ST segment changes or arrhythmias. See the nuclear report for further information. Electronically signed by : Shayan Wesley, 06/09/2019 15:19:38
--- NOTE | 2019-06-08 07:15 | HMH.ITSHM ---
Current Home Medications as stated by this patient Surekha Rios or international account representative. []LISINOPRIL INSULIN FUROSEMIDE CARVEDILOL PIOGLITAZONE PAXIL OXYCODONE OMEGA 3 MONTELUKAST METFORMIN LORATADINE VITAMIN B12 VITAMIN D3 ATORVASTATIN ASA
== END ==
PROVIDERS: PCP Nurse Practitioner Family; Visit Provider Nurse Practitioner Family
DX: I10 Essential (primary) hypertension (principal); R01.1 Cardiac murmur, unspecified; R06.02 Shortness of breath
CPT/HCPCS: 78452; 93017; 93306; A9502; J2785

== ENCOUNTER → 2019-06-22 14:57 | Outpatient (CLI) | payer MEDICARE, SELFPAY ==
[2019-06-22 15:13] LABS: Basophils % 0.2 % (0.1-2.0); Eosinophils # 0.2 K/mm3 (0.0-0.4); Eosinophils % 2.3 % (0.1-12.0); Hematocrit 35.2 % (37.0-47.0); Hemoglobin 10.7 g/dL (12.2-16.2); Lymphocytes # 1.7 K/mm3 (0.7-4.5); Lymphocytes % 25.8 % (10-50); Mean Corpuscular HGB Conc 30.3 g/dL (31.8-35.4); Mean Corpuscular Volume 89.2 fl (81-99); Mean Platelet Volume 7.6 fl (7.4-10.4); Monocytes # 0.4 K/mm3 (0.1-1.0); Monocytes % 5.7 % (1.7-9.3); Neutrophils # 4.4 K/mm3 (1.8-7.8); Neutrophils % 65.9 % (37.0-80.0); Platelet Count 282 K/mm3 (142-424); Red Blood Count 3.95 M/mm3 (4.20-5.40); Red Cell Distribution Width 14.8 % (11.5-17.5); White Blood Count 6.7 K/mm3 (4.8-10.8)
[2019-06-22 15:46] LABS: Anion Gap 16.2 mEq/L (5-15); Blood Urea Nitrogen 61 mg/dL (7-18); Calcium 8.9 mg/dL (8.5-10.1); Carbon Dioxide 24 mmol/L (21.0-32.0); Chloride 108 mmol/L (98-107); Creatinine,Serum 1.51 mg/dL (0.55-1.02); Estimated Glomerular Filt Rate 36 ml/min (>60); GFR (African American) 43 ML/MIN (>60); Glucose 68 mg/dL (74-106); Sodium 143 mmol/L (136-145)
[2019-06-22 15:53] LABS: Potassium 5.2 mmoL/L (3.5-5.1)
== END ==
PROVIDERS: Visit Provider Nurse Practitioner Family
DX: R06.02 Shortness of breath (principal); E11.69 Type 2 diabetes mellitus with other specified complication; Z79.4 Long term (current) use of insulin
CPT/HCPCS: 36415; 80048; 85025

== ENCOUNTER → 2019-07-06 12:59 | Outpatient (CLI) | payer MEDICARE, SELFPAY ==
[2019-07-06 13:29] LABS: Basophils % 0.7 % (0.1-2.0); Eosinophils # 0.1 K/mm3 (0.0-0.4); Hematocrit 34.4 % (37.0-47.0); Hemoglobin 10.7 g/dL (12.2-16.2); Lymphocytes # 1.3 K/mm3 (0.7-4.5); Lymphocytes % 20.6 % (10-50); Mean Corpuscular HGB Conc 31.1 g/dL (31.8-35.4); Mean Corpuscular Hemoglobin 28.2 pg (27.0-31.2); Mean Corpuscular Volume 90.8 fl (81-99); Mean Platelet Volume 8.5 fl (7.4-10.4); Monocytes # 0.4 K/mm3 (0.1-1.0); Monocytes % 6.2 % (1.7-9.3); Neutrophils # 4.4 K/mm3 (1.8-7.8); Neutrophils % 70.6 % (37.0-80.0); Platelet Count 258 K/mm3 (142-424); Red Blood Count 3.79 M/mm3 (4.20-5.40); Red Cell Distribution Width 13.9 % (11.5-17.5); White Blood Count 6.2 K/mm3 (4.8-10.8)
[2019-07-06 13:37] LABS: Anion Gap 16.7 mEq/L (5-15); Calcium 9.4 mg/dL (8.5-10.1); Carbon Dioxide 27 mmol/L (21.0-32.0); Chloride 109 mmol/L (98-107); Creatinine,Serum 2.27 mg/dL (0.55-1.02); Estimated Glomerular Filt Rate 22 ml/min (>60); GFR (African American) 27 ML/MIN (>60); Glucose 161 mg/dL (74-106); Potassium 5.7 mmoL/L (3.5-5.1); Sodium 147 mmol/L (136-145)
[2019-07-06 13:42] LABS: Blood Urea Nitrogen 76 mg/dL (7-18)
== END ==
PROVIDERS: Visit Provider Internal Medicine
DX: I25.10 Atherosclerotic heart disease of native coronary artery without angina pectoris (principal); R06.02 Shortness of breath
CPT/HCPCS: 36415; 80048; 85025

== ENCOUNTER 2020-03-31 21:14 | Inpatient (IN) | payer MEDICARE, MEDICAID, SELFPAY ==
--- NOTE | 2020-03-31 21:26 | ECG_ITS ---
APPROVED REPORT Exam: Resting ECG HR:75 bpm ECG Measurements Heart Rate 75 AXES UT 188 P 47 QRSd 88 QRS -10 QT 400 T 58 QTc 446 Conclusion Normal sinus rhythm Normal ECG Electronically signed by : Domingo Pineda, 04/01/2020 14:32:52
[2020-03-31 21:35] VITALS: BP 179/62; PULSE 78; RESP 22; TEMP 36.7; O2SAT 96; BMI 52.4
--- NOTE | 2020-03-31 21:41 | XR_ITS ---
PROCEDURE: XR CHEST 2V CLINICAL HISTORY: soa,heart palpitations COMPARISON: CT CTAC CTA-CHEST from 11/10/2012 CR CXR2 XR chest AP from 10/06/2017 CR CXR2V XR chest 2V from 06/22/2018 DX XR CHEST 2V from 04/30/2019 FINDINGS: There is cardiomegaly with mild pulmonary venous congestion. There is mild thickening of the major fissure as noted on the lateral view. No lobar consolidation or collapse. No acute bony abnormalities. IMPRESSION: Mild CHF Dictated by: Krishna Sepulveda MD 04/01/2020 05:09 Krishna Sepulveda MD in [place] 04/01/2020 05:09
--- NOTE | 2020-03-31 21:50 | HMH.EDGENADL ---
ED Disposition Clinical Impression: Acute kidney injury, Hyperkalemia, Dyspnea on exertion Urinary incontinence Qualifiers: Urinary Incontinence type: unspecified incontinence Qualified Code(s): R32 - Unspecified urinary incontinence Disposition: Admitted as Observation Condition on Discharge: Serious Referrals: Odette Gaitan APRN [Primary Care Provider] - - Critical Care Critical Care Time: Yes Attestation: On 03/31/20, the high probability of a clinically significant, sudden or life threatening deterioration of the following system(s) required my full and direct attention, intervention and personal management. The time I documented below is in addition to time spent performing reported procedures but includes the following listed in this critical care notation. Total Critical Care Time: 35 Vital system(s) involved:: Metabolic Failure, Renal Failure My critical care processes included: Assessment & monitoring of V/S, Initial and Re-exams, Data Review/Interpretation, Coordinating Care, Medication Orders and management, Documentation Medical Decision Making - Medical Records Medical records reviewed: Yes: I reviewed the patient's medical records. - Elbert Inquiry Pt receiving controlled substance: No Vital Signs: 03/31/20 21:35 03/31/20 23:20 Temperature 98.0 F 100.2 F H Temperature Source Oral Rectal Pulse Rate [Right Brachial] 78 Respiratory Rate 22 Blood Pressure [Right Arm] 179/62 H Blood Pressure Mean [Right Arm] 101 Blood Pressure Source [Right Arm] Automatic Cuff Blood Pressure Position [Right Arm] Sitting 02 Sat by Pulse Oximetry 96 - Lab Data Lab results reviewed: Yes: I reviewed the patient's lab results. Lab Results 03/31/20 21:54: WBC 7.8, RBC 3.55 L, Hgb 10.0 L, Hct 33.5 L, MCV 94.4, MCH 28.2, MCHC 29.8 L, RDW 14.2, Plt Count 256, MPV 8.9, Neut % (Auto) 77.7, Lymph % (Auto) 12.0, [place] % (Auto) 7.3, Eos % (Auto) 2.7, Baso % (Auto) 0.3, Neut # (Auto) 6.1, Lymph # (Auto) 0.9, [place] # (Auto) 0.6, Eos # (Auto) 0.2, Baso # (Auto) 0.0 03/31/20 21:54: D-Dimer 1.24 03/31/20 22:15: Urine Color Yellow, Urine Appearance Clear, Urine pH 5.5, Ur Specific [place] 1.020, Urine Protein 2+, Urine Glucose (UA) 1+, Urine Ketones Negative, Urine Blood 1+, Urine Nitrate Negative, Urine Bilirubin Negative, Urine Urobilinogen 0.2, Ur Leukocyte Esterase Negative, Urine RBC 3-5, Urine WBC 5-10, Ur Squamous Epith Cells 10-20, Urine Bacteria 1+, Fine Granular Casts 3-5 03/31/20 22:37: Sodium 144, Potassium 6.6 H*, Chloride 114 H, Carbon Dioxide 20 L, Anion Gap 16.6 H, BUN 102 H*, Creatinine 3.00 H, Estimated Creat Clear 21, Estimated GFR 16 L*, Est GFR ( Amer) 20 L, Glucose 229 H, Calcium 8.9, Troponin I < 0.01, NT-Pro-B Natriuret Pep 1520 H 03/31/20 22:37: Total Bilirubin 0.4, Direct Bilirubin 0.1, Conjugated Bilirubin 0.0, Indirect Bilirubin 0.3, Unconjugated Bilirubin 0.3, AST 24, ALT 19, Alkaline Phosphatase 104, Total Protein 8.2, Albumin 4.2 Result diagrams: 03/31/20 21:54 03/31/20 22:37 Orders (Tests/Meds): ED MEDICATIONS Discontinued Medications Generic Name Dose Route Start Last Admin Trade Name Alexq PRN Reason Stop Dose Admin Dextrose 50 ml 03/31/20 23:03 03/31/20 23:23 Dextrose 50% 50ml Syringe (Crash Cart) IVP 03/31/20 23:04 50 ml ONCE ONE Administration Insulin Human Regular 10 unit 03/31/20 23:03 03/31/20 23:23 Insulin Human Regular 100 Units/Ml 10ml Vial IVP 03/31/20 23:04 10 unit ONCE ONE Administration Sodium Polystyrene Sulfonate 15 gm 03/31/20 23:06 03/31/20 23:23 Sodium Poly Sulfon 15gm/60ml Oral.Susp PO 03/31/20 23:07 15 gm ONCE ONE Administration ORDERS Category Date Time Status Chest XR 2 view (NOT portable) [XR chest 2V] Stat Exams 03/31/20 21:41 Taken Covid-19 IgG/IgM ([facility]) Stat Lab 03/31/20 22:37 Received Lactic Acid Stat Lab 03/31/20 23:17 Ordered Troponin I Q3H Lab 04/01/20 00:45 Ordered Troponin I Q3H Lab 04/01/20 03:
[2020-03-31 22:00] VITALS: BP 179/67; PULSE 96; RESP 17; O2SAT 98
[2020-03-31 22:16] LABS: Basophils % 0.3 % (0.1-2.0); Eosinophils # 0.2 K/mm3 (0.0-0.4); Eosinophils % 2.7 % (0.1-12.0); Hematocrit 33.5 % (37.0-47.0); Lymphocytes # 0.9 K/mm3 (0.7-4.5); Mean Corpuscular HGB Conc 29.8 g/dL (31.8-35.4); Mean Corpuscular Hemoglobin 28.2 pg (27.0-31.2); Mean Corpuscular Volume 94.4 fl (81-99); Mean Platelet Volume 8.9 fl (7.4-10.4); Monocytes # 0.6 K/mm3 (0.1-1.0); Monocytes % 7.3 % (1.7-9.3); Neutrophils # 6.1 K/mm3 (1.8-7.8); Neutrophils % 77.7 % (37.0-80.0); Platelet Count 256 K/mm3 (142-424); Red Blood Count 3.55 M/mm3 (4.20-5.40); Red Cell Distribution Width 14.2 % (11.5-17.5); White Blood Count 7.8 K/mm3 (4.8-10.8)
[2020-03-31 22:18] LABS: Microscopic, Urine URINE MICROSCOPIC (MICROSCOPIC)
[2020-03-31 22:25] LABS: D-Dimer 1.24 ug/mL (0.15-8.0)
--- NOTE | 2020-03-31 22:25 | PC.NURSE ---
pt up to bathroom at this time. specimen sent to lab. assisted back to bed
[2020-03-31 22:26] LABS: Appearance,Urine CLEAR (Clear); Bilirubin,Urine Negative (Negative); Blood, Urine 1+ (Negative); Color,Urine YELLOW (Yellow); Glucose,Urine (UA) 1+ (Negative); Ketones,Urine Negative (Negative); Leukocyte Esterase,Urine Negative (Negative); Nitrate,Urine Negative (Negative); PH,Urine 5.5 (5.0-8.5); Protein,Urine 2+ (Negative); Urobilinogen,Urine 0.2 EU/dl (0.2)
[2020-03-31 22:30] VITALS: BP 177/66; PULSE 82; RESP 17; O2SAT 96
[2020-03-31 22:51] LABS: Bacteria,Urine 1+ /lpf
[2020-03-31 22:54] LABS: Chloride 114 mmol/L (98-107); Sodium 144 mmol/L (136-145)
[2020-03-31 22:56] LABS: Alanine Aminotransferase 19 U/L (12-78); Alkaline Phosphatase 104 U/L (38-126); Aspartate Amino Transferase 24 U/L (14-36); Bilirubin,Direct 0.1 mg/dl (0.0-0.4); Bilirubin,Indirect 0.3 mg/dL (0.0-0.9); Bilirubin,Total 0.4 mg/dl (0.2-1.3); Bilirubin,Unconjugated 0.3 mg/dL (0.0-1.1)
[2020-03-31 22:57] LABS: Albumin Level 4.2 g/dl (3.5-5.0); Anion Gap 16.6 mEq/L (5-15); Calcium 8.9 mg/dl (8.4-10.2); Carbon Dioxide 20 mmol/L (22.0-30.0); Creatinine Clearance Estimated 21 mL/min (50-200); Estimated Glomerular Filt Rate 16 ml/min (>60); GFR (African American) 20 ML/MIN (>60); Glucose 229 mg/dl (74-100); Total Protein,Serum 8.2 g/dl (6.3-8.2)
[2020-03-31 23:00] VITALS: BP 163/56; PULSE 74; RESP 17; O2SAT 95
[2020-03-31 23:00] LABS: Blood Urea Nitrogen 102 mg/dl (7-17); Potassium 6.6 mmoL/L (3.5-5.1)
[2020-03-31 23:06] LABS: NT Pro Brain Natriuretic Pep. 1520 pg/mL (0-125)
[2020-03-31 23:11] LABS: Troponin I < 0.01 ng/ml (0.00-0.034)
--- NOTE | 2020-03-31 23:19 | PC.NURSE ---
Placed simons cath with 850 ml out on insertion
[2020-03-31 23:30] VITALS: BP 159/61; PULSE 78; RESP 17; O2SAT 98
[2020-04-01] VITALS (12 sets, daily range): BP systolic 112–178; BP diastolic 56–89; PULSE 68–94; RESP 16–24; TEMP 36.7–37.4; O2SAT 91–98; BMI 51.7; BMI 51.4
[2020-04-01 00:27] LABS: Coronavirus 19 IgG Antibody Negative (Negative); Coronavirus 19 IgM Antibody Negative (Negative)
[2020-04-01 00:53] LABS: Lactic Acid 1.2 mmol/L (0.7-2.1)
[2020-04-01 01:10] LABS: Troponin I 0.01 ng/ml (0.00-0.034)
--- NOTE | 2020-04-01 01:23 | PC.NURSE ---
patient up to floor via wheelchair.
[2020-04-01 04:11] LABS: Chloride 116 mmol/L (98-107); Sodium 144 mmol/L (136-145)
[2020-04-01 04:14] LABS: Anion Gap 15.8 mEq/L (5-15); Calcium 8.3 mg/dl (8.4-10.2); Carbon Dioxide 19 mmol/L (22.0-30.0); Creatinine Clearance Estimated 23 mL/min (50-200); Estimated Glomerular Filt Rate 17 ml/min (>60); GFR (African American) 21 ML/MIN (>60); Glucose 146 mg/dl (74-100)
[2020-04-01 04:19] LABS: Blood Urea Nitrogen 101 mg/dl (7-17); Potassium 6.8 mmoL/L (3.5-5.1)
[2020-04-01 04:25] LABS: Troponin I 0.02 ng/ml (0.00-0.034)
--- NOTE | 2020-04-01 04:42 | PC.NURSE ---
Lab notified this RN of critical Potassium of 6.8, this is an increase from 6.6 in ER. And notification results of BUN 101, down from 102, and Creatinine 2.80 down from 3.00. S/W Dr. Courtney at 0431 and no new orders a this time.
--- NOTE | 2020-04-01 04:49 | PC.NURSE ---
Pt had a room air sat of 86% after ambulating to the bathroom. pt c/o SOA with exertion. Pt placed on O2 via NC @ 1LPM. SaO2 increased to 93%. After pt fell asleep, SaO2 decreased to 85%, increased O2 to 2LPM. On reassessment, SatO2 94%. Pt normally wears CPAP at home at night and refused offer for H cpap/bipap option. Pt stated she would have her son bring her own cpap at some point during the day. Will continue to monitor.
--- NOTE | 2020-04-01 06:08 | PC.NURSE ---
This shift intake: 567ml and output 1,250ml.
--- NOTE | 2020-04-01 07:08 | CA_ITS ---
APPROVED REPORT EXAM: Comprehensive 2D, Doppler, and color-flow Echocardiogram Assistant Superintendent For Curriculum: Kecia Hall RT(R) Ht: 5 ft 8 in Wt: 340lbs BSA: 2.56 BP: 179/62 mmHg Indications: edema, palpitations, HTN, hyperlipidemia, VALERO, morbid obesity, CHF, fever, HUGH, CAD, cardiac stent, CVA, hx of gastric sleeve, urinary incontinence 2D Dimensions LVOT 1.88 cm (M/F) 1.5-2.5 M-Mode Dimensions RVDd 2.90 cm (0.9-2.6) LA Diam 3.54 cm (1.9-4.0) LVDd 6.07 cm (3.5-5.7) Ao Diam 3.32 cm (2.0-3.7) LVDs 4.06 cm (3.5-5.7) IVSd 0.98 cm (0.6-1.1) PWd 1.07 cm (0.6-1.1) EF (Teich) 60.80% FS 33.10% EDV (Teich) 184.80 mL ESV (Teich) 72.50 mL LV Diastology E Decel Time 150.00 (160-240 msec) E/A Ratio 1.0 MED E' 9.20 (< 7 cm/sec) E'/MED E' Ratio 14.03 (>14) LAT E' 8.40 (<10 cm/sec) E/LAT E' Ratio 15.37 (>14) Mitral Valve MV E Max Cecil. 129.00 (40-130 cm/s) MV A Velocity 132.00 (40-130 cm/s) E/A Ratio 0.98 MV Decel. Time 150.00 (160-240 ms) MV PHT 44.00 ms Left Ventricle Left atrium is mildly enlarged, left ventricle is normal size, mild concentric left ventricular hypertrophy, visually estimated ejection fraction 55% with no regional wall motion abnormality, grade 1 diastolic dysfunction seen with tissue Doppler evidence of raise left atrial pressure. Right Ventricle Right atrium and right ventricle are normal size and contractility. Aortic Valve Aortic valve is minimally thickened and fibrosed, there is no aortic stenosis or aortic insufficiency. Mitral Valve Mitral valve leaflets are minimally thickened, there is no mitral stenosis, there is mild mitral regurgitation. Tricuspid Valve Tricuspid valve is grossly normal, there is mild tricuspid regurgitation, tricuspid regurgitation jet velocity is inadequate for calculation of the right ventricular systolic pressure. Pulmonic Valve Pulmonic valve is poorly visualized. Great Vessels Aortic root is normal size. Pericardium No significant pericardial effusion noted. Conclusion 1. Mildly enlarged left atrium, normal left ventricular size, mild concentric left ventricular hypertrophy, visually estimated ejection fraction 55% with no regional wall motion abnormality, grade 1 diastolic dysfunction seen with tissue Doppler evidence of raise left atrial pressure. 2. Mild mitral and tricuspid regurgitation. 3. No significant pericardial effusion noted. Electronically signed by : Shayan Wesley, 04/01/2020 13:12:00
--- NOTE | 2020-04-01 07:11 | HMH.HP ---
*Admission Date: 03/31/20 *Chief complaint: Weakness, urinary frequency and and incontinence, shortness of breath *History of present illness: 55-year-old female with past medical history of diabetes, diastolic CHF, CVA, hypertension, coronary artery disease presented to the emergency department due to slight worsening of her chronic dyspnea over the last 3 days with associated weakness and urinary incontinence at home. In regards to patient's dyspnea she has chronic intermittent dyspnea but does admit she felt more swollen than she had compared to a week ago. She denied chest pain. Patient does have known diastolic CHF and also admits to being unable to follow-up with referral to local lymphedema clinic for her chronic swelling. In regards to her urinary symptoms for the last 3 days she reported urinary incontinence with inability to make it to her bathroom in time. She had urinary frequency as well as a foul-smelling urine but denies dysuria or hematuria. She is also not had any fevers or chills. She denies chest pain. She did report to the ER physician pain across her back and shoulder blades. Patient was also concerned by sensation of hearing her heartbeat in her ear whenever she would lay down [facility] History I have reviewed the patient's past medical history: Yes Medical History: Reports:: Coronary Artery Disease, Cerebrovascular Accident, Depression, Diabetes Mellitus Type 2, Hyperlipidemia, Hypertension Denies:: Cancer, Diabetes Mellitus Type 1, Internal Pacemaker, MRSA, Seizures *Have you ever received a pneumonia vaccine?: Yes *Have you received a flu vaccine this season?: Yes Other Medical History: Reports: Sinus Problems, Other Other Surgeries: Yes: Cardiac Catheterization, Cholecystectomy, Coronary Stent, Sinus Surgery, Tubal Ligation, Other (gastric sleeve). No: Pacemaker Amputation: No Fractures: No - *Social History Last grade of school completed: Advanced degree Smoking Status: Never smoker Alcohol Intake: current Alcohol Intake Frequency:: other Substance Use Type: denies use *Occupational Status:: disabled Housing: house Household Members: children *Travel in the last 8 weeks: None - Psychiatric History Pschychiatric History:: Reports:: Depression Family Hx:: Coronary Artery Disease, Diabetes, Heart Attack, Hyperlipidemia, Hypertension, Kidney Disease, Stroke, Substance abuse, Alcoholism Review of Systems - Constitutional Reports lack of energy, Reports malaise, Reports weakness, Denies anorexia, Denies body ache(s), Denies chills, Denies night sweats - ENT Denies abnormal hearing - *Cardiovascular Reports shortness of breath with activity, Reports generalized swelling, Denies chest pain, Denies chest pain at rest, Denies chest pain with activity - *Respiratory Reports cough, Reports shortness of breath, Reports shortness of breath with activity, Denies chest congestion, Denies excessive phlegm production - *Gastrointestinal Denies abdominal pain - *Musculoskeletal Reports abnormal walking, Reports joint pain, Reports muscle weakness (Dude) - Integumentary/Breasts Denies acne, Denies hair loss - *Neurologic Denies abnormal hearing Meds Home Medications Medication Instructions Recorded Confirmed Type Insulin Lispro [HumaLOG 100 30 unit SQ TIDWM 10/05/17 04/01/20 History units/mL 3mL vial (SSI)] Metformin HCl [Glucophage 500mg 1,000 mg PO BID 10/05/17 04/01/20 History Tablet] PARoxetine HCl [Paxil] 20 mg PO HS 10/05/17 04/01/20 History lisinopriL [Lisinopril 40mg Tablet] 40 mg PO DAILY 10/05/17 04/01/20 History Aspirin [Aspirin 81mg EC Tab] 81 mg PO DAILY 06/23/18 04/01/20 History Atorvastatin Calcium [Lipitor 40mg 40 mg PO DAILY 06/23/18 04/01/20 History Tab] Cholecalciferol (Vitamin D3) 50,000 unit PO WEEKLY 06/23/18 04/01/20 History [Vitamin D3 50,000 unit Cap] Cyanocobalamin (Vitamin B-12) 1,000 mcg PO DAILY 06/23/18 04/01/20 History [Vitamin B-12 1000mcg Tablet] Ome
--- NOTE | 2020-04-01 07:28 | P.CONPHA_ITS ---
[facility] Pharm[facility] VTE Monitoring - Patient Demographics Admission date: 03/31/20 Report Date: 04/01/20 Time: 07:28 Allergies/Adverse Reactions: Patient Allergies Sulfa (Sulfonamide Antibiotics) [SULFA (SULFONAMIDE ANTIBIOTICS)] Allergy (Intermediate, Verified 02/01/20 11:44) I-RASH Height: 1.73 m Weight: 154.335 kg Patient Problems: Current Active Problems Acute kidney injury (Acute) Hyperkalemia (Acute) Urinary incontinence (Acute) Dyspnea on exertion (Acute) Hypertensive heart disease (Acute) Acute on chronic diastolic CHF (congestive heart failure) (Acute) BMI 50.0-59.9, adult (Acute) Moderate mitral regurgitation (Chronic) Diabetes mellitus with hyperglycemia (Acute) History of CVA (cerebrovascular accident) (Chronic) - VTE Risk Labs: VTE Related Lab Results Hgb 10.0 g/dL (12.2-16.2) L 03/31/20 21:54 Hct 33.5 % (37.0-47.0) L 03/31/20 21:54 Plt Count 256 K/mm3 (142-424) 03/31/20 21:54 BUN 101 mg/dl (7-17) H* 04/01/20 03:48 Creatinine 2.80 mg/dl (0.52-1.04) H 04/01/20 03:48 Estimated Creat Clear 23 mL/min (50-200) 04/01/20 03:48 VTE Score: 8 VTE Risk Level: Moderate Risk - Prophylaxis VTE Prophylaxis Ordered?: Yes Types of VTE Prophylaxis: TEDS Knee High Location of Applied Device: Bilateral Lower Extremeties
--- NOTE | 2020-04-01 08:04 | HMH.CNCARD ---
History of Present Illness Consult date: 04/01/20 Requesting physician: Domingo Courtney Consult reason: shortness of breath Chief complaint: SOA Additional Medical History:: 1. Hypertension, treated for greater than 20 years A. Echo, 05/2019, biatrial enlargement, normal LV size and EF of 55% with grade I diastolic dysfunction. Moderate MRShaw Rosales. Echo, 03/2020, pending 2. History of gastric sleeve, 2013, greater than 100 pound weight loss and subsequent gaining it back. 3. History of CVA with left-sided weakness, approximately 2016. Patient reports medulla type stroke felt related to uncontrolled diabetes and hypertension after meds discontinued due to large wt los. 4. Diabetes mellitus, treated for greater than 20 years 5. Hyperlipidemia, treated for greater than 20 years 6. Morbid obesity 7. Acute on CKD, now stage IV with Cr 3.0, GFR 16, 03/2020 (prior Cr 2.2, GFR 30, 06/2019) 8. Coronary artery disease A. Abnormal stress test, 05/2019 B. [facility],06/2019, ANGIOGRAPHIC RESULTS The left main artery Normal The left anterior descending artery Normal The circumflex artery Normal The right coronary artery Dominant proximally subtotally occluded accompanied by ANNITA II flow initially. After the procedure the vessel was widely patent with ANNITA-3 flow The HUTTON ventriculogram reveals Dilated left ventricle ejection fraction 50 to 55% The left ventricular end-diastolic pressure Severely elevated at 35 to 40 mmHg IMPRESSION Subtotal occlusion of the proximal dominant right coronary artery Successful reconstruction of a chronically occluded dominant right coronary artery 99% subtotal occlusion reduced to 0% with one drug-eluting stent Dilated left ventricle with severely elevated LVEDP PLAN 1. Brilinta 90 twice daily plus aspirin 81 mg daily 2. Treatment of diastolic dysfunction with loop diuretics and Aldactone 3. Cardiac rehabilitation 4. Avoidance of tobacco products 5. LDL less than 55 6. Aggressive risk factor modification Electronically signed by : Gómez Buchanan, 06/25/2019 10:13:01 9. LINDA, CPAP use. History of present illness: 55-year-old female with past medical history of diabetes, diastolic CHF, CVA, hypertension, coronary artery disease presented to the emergency department due to slight worsening of her chronic dyspnea over the last 3 days with associated weakness and urinary incontinence at home. In regards to patient's dyspnea she has chronic intermittent dyspnea but does admit she felt more swollen than she had compared to a week ago. She denied chest pain. Patient does have known diastolic CHF and also admits to being unable to follow-up with referral to local lymphedema clinic for her chronic swelling. In regards to her urinary symptoms for the last 3 days she reported urinary incontinence with inability to make it to her bathroom in time. She had urinary frequency as well as a foul-smelling urine but denies dysuria or hematuria. She is also not had any fevers or chills. She denies chest pain. She did report to the ER physician pain across her back and shoulder blades. Patient was also concerned by sensation of hearing her heartbeat in her ear whenever she would lay down. The above per Dr. Courtney Patient reports her shortness of breath is worse than her angina type shortness of breath prior to stenting earlier this year. She denies any chest pain, pressure or tightness but does relate some shoulder discomfort which she feels is related to her effort in lifting herself out of a chair using her walker. EKG on admission showed sinus rhythm with no acute ST segment changes. Troponins are within normal limits. Chest x-ray shows mild congestive heart failure. Renal functions have improved slightly overnight with gentle IV fluids and IV Lasix 80 mg x1 has been ordered this morning. All nephrotoxic medications have been discontinued including Metformin, spironolactone, and l
--- NOTE | 2020-04-01 08:39 | HMH.PHAINT ---
clarified home medication list with [facility]. Clarified Lasix and Aldactone doses with cardiology office, patient is taking both DAILY.
[2020-04-01 11:25] LABS: POC Glucose,Bedside 179 (70-110)
[2020-04-01 11:25] LABS: POC Glucose,Bedside 155 (70-110)
[2020-04-01 14:58] LABS: Anion Gap 13.8 mEq/L (5-15); Calcium 8.6 mg/dl (8.4-10.2); Carbon Dioxide 21 mmol/L (22.0-30.0); Chloride 116 mmol/L (98-107); Creatinine Clearance Estimated 20 mL/min (50-200); Estimated Glomerular Filt Rate 16 ml/min (>60); GFR (African American) 19 ML/MIN (>60); Glucose 211 mg/dl (74-100); Potassium 5.8 mmoL/L (3.5-5.1); Sodium 145 mmol/L (136-145)
[2020-04-01 15:05] LABS: Blood Urea Nitrogen 95 mg/dl (7-17)
[2020-04-01 16:45] LABS: POC Glucose,Bedside 181 (70-110)
--- NOTE | 2020-04-01 20:05 | PC.NURSE ---
Addendum entered by Nicole Hernandez RN 04/03/20 03:30: BUN of 95 is a notification lab result. md was notified within 4 hrs of lab result being called to RN Original Note: PATIENT A&O X4, LUNGS DIMINISHED, PULSES EQUAL, PITTING EDEMA FEET. NON PITTING EDEMA ON BLE. PATIENT AMBULATES TO RESTROOM WITH STANDING WALKER. STAND BY ASSIST. THIS RN RECEIVED A CRITICAL NOTIFICATION OF BUN 95. THIS RN REPORTED FINDINGS TO DR. BUSTAMANTE, NO NEW ORDERS. NO CONCERNS AT THIS TIME.
[2020-04-01 20:18] LABS: POC Glucose,Bedside 197 (70-110)
[2020-04-02] VITALS (8 sets, daily range): BP systolic 110–177; BP diastolic 52–79; PULSE 50–86; RESP 17–20; TEMP 36.5–36.9; O2SAT 90–96; BMI 51.0
--- NOTE | 2020-04-02 04:23 | PC.NURSE ---
Pt has slept very well this shift. Using CPAP during sleep. lung sounds remain quite diminished. edema remain in all extremities, with right side edema being more pronounced. Cardiac rhythm remains NSR. Pt reports several bouts of diarrhea after administration of Kayexalate with evening medication pass.
[2020-04-02 05:52] LABS: POC Glucose,Bedside 167 (70-110)
[2020-04-02 07:05] LABS: Basophils % 0.2 % (0.1-2.0); Eosinophils # 0.1 K/mm3 (0.0-0.4); Eosinophils % 1.3 % (0.1-12.0); Hematocrit 29.3 % (37.0-47.0); Hemoglobin 9.2 g/dL (12.2-16.2); Lymphocytes # 1.3 K/mm3 (0.7-4.5); Lymphocytes % 18.9 % (10-50); Mean Corpuscular HGB Conc 31.3 g/dL (31.8-35.4); Mean Corpuscular Hemoglobin 28.9 pg (27.0-31.2); Mean Corpuscular Volume 92.3 fl (81-99); Mean Platelet Volume 8.1 fl (7.4-10.4); Monocytes # 0.6 K/mm3 (0.1-1.0); Neutrophils # 4.9 K/mm3 (1.8-7.8); Neutrophils % 71.6 % (37.0-80.0); Platelet Count 233 K/mm3 (142-424); Red Blood Count 3.18 M/mm3 (4.20-5.40); Red Cell Distribution Width 14.1 % (11.5-17.5); White Blood Count 6.8 K/mm3 (4.8-10.8)
[2020-04-02 07:11] LABS: Chloride 116 mmol/L (98-107); Potassium 4.4 mmoL/L (3.5-5.1); Sodium 148 mmol/L (136-145)
[2020-04-02 07:14] LABS: Creatinine Clearance Estimated 21 mL/min (50-200); Estimated Glomerular Filt Rate 16 ml/min (>60); GFR (African American) 20 ML/MIN (>60)
[2020-04-02 07:15] LABS: Anion Gap 13.4 mEq/L (5-15); Calcium 8.5 mg/dl (8.4-10.2); Carbon Dioxide 23 mmol/L (22.0-30.0); Glucose 155 mg/dl (74-100)
[2020-04-02 07:17] LABS: Blood Urea Nitrogen 84 mg/dl (7-17)
--- NOTE | 2020-04-02 08:35 | HMH.ACPN2 ---
Internal Medicine - PN: Subj *Date: 04/02/20 *Time: 08:35 Interval history: Patient did well yesterday. Potassium level decreased. Renal function and creatinine have remained unchanged. Patient reports diarrhea with Kayexalate. She does admit to feeling a little better this morning. She denies shortness of breath Exam Vital signs and Labs for Last 24 Hours: Temp Pulse Resp BP Pulse Ox 97.7 F 86 18 177/79 H 90 L 04/02/20 08:00 04/02/20 08:00 04/02/20 08:00 04/02/20 08:00 04/02/20 08:00 Laboratory Results - last 24 hr 04/01/20 06:40: POC Glucose 155 H 04/01/20 11:04: POC Glucose 179 H 04/01/20 14:33: Sodium 145, Potassium 5.8 H, Chloride 116 H, Carbon Dioxide 21 L, Anion Gap 13.8, BUN 95 H, Creatinine 3.10 H, Estimated Creat Clear 20, Estimated GFR 16 L*, Est GFR ( Amer) 19 L*, Glucose 211 H D, Calcium 8.6 04/01/20 16:37: POC Glucose 181 H 04/01/20 20:11: POC Glucose 197 H 04/02/20 05:30: POC Glucose 167 H 04/02/20 06:24: WBC 6.8, RBC 3.18 L, Hgb 9.2 L, Hct 29.3 L, MCV 92.3, MCH 28.9, MCHC 31.3 L, RDW 14.1, Plt Count 233, MPV 8.1, Neut % (Auto) 71.6, Lymph % (Auto) 18.9, [place] % (Auto) 8.0, Eos % (Auto) 1.3, Baso % (Auto) 0.2, Neut # (Auto) 4.9, Lymph # (Auto) 1.3, Will # (Auto) 0.6, Eos # (Auto) 0.1, Baso # (Auto) 0.0 04/02/20 06:24: Sodium 148 H, Potassium 4.4 D, Chloride 116 H, Carbon Dioxide 23, Anion Gap 13.4, BUN 84 H, Creatinine 3.00 H, Estimated Creat Clear 21, Estimated GFR 16 L*, Est GFR ( Amer) 20 L, Glucose 155 H D, Calcium 8.5 I & O for Last 24 hours: Intake & Output 03/30/20 03/31/20 04/01/20 04/02/20 11:59 11:59 11:59 11:59 Intake Total 927 / 927 1701 / 1701 Output Total 1250 / 1250 3550 / 3550 Balance -323 / -323 -1849 / -1849 Weight 340 lb 4 oz 337 lb 1 oz - Constitutional no acute distress - *Routine Respiratory Exam Present: CTA bilaterally - *Routine Cardiovascular Exam Present: RRR - *Routine Extremities Exam Present: edema. Absent: cyanosis, clubbing Assessment and Plan (1) Acute kidney injury Status: Acute Category: Medical Code(s): N17.9 - Acute kidney failure, unspecified (2) Acute on chronic diastolic CHF (congestive heart failure) Status: Acute Category: Medical Code(s): I50.33 - Acute on chronic diastolic (congestive) heart failure (3) Hypertensive heart disease Status: Acute Category: Medical Code(s): I11.9 - Hypertensive heart disease without heart failure (4) Hyperkalemia Status: Resolved Category: Medical Code(s): E87.5 - Hyperkalemia (5) Urinary incontinence Status: Acute Qualifiers: Urinary Incontinence type: unspecified incontinence Qualified Code(s): R32 - Unspecified urinary incontinence Category: Medical Code(s): R32 - Unspecified urinary incontinence (6) Diabetes mellitus with hyperglycemia Status: Acute Category: Medical Code(s): E11.65 - Type 2 diabetes mellitus with hyperglycemia (7) History of CVA (cerebrovascular accident) Status: Chronic Category: Medical Code(s): Z86.73 - Personal history of transient ischemic attack (TIA), and cerebral infarction without residual deficits (8) Moderate mitral regurgitation Status: Chronic Category: Medical Code(s): I34.0 - Nonrheumatic mitral (valve) insufficiency (9) BMI 50.0-59.9, adult Status: Acute Category: Medical Code(s): Z68.43 - Body mass index [BMI] 50.0-59.9, adult - Assessment and plan all Dx Assessment and Plan for all problems:: 1. Await urine studies that are pending for patient's acute kidney injury/acute renal failure. Follow serial BMPs and continue gentle IV fluid hydration 2. Continue IV antibiotics until urine culture is available 3. Due to patient's acute renal failure Lasix will be held unless patient has additional symptoms of congestive heart failure
[2020-04-02 09:30] LABS: Creatinine,Urine Random 48 mg/dL (Not Estab.)
[2020-04-02 11:58] LABS: POC Glucose,Bedside 186 (70-110)
[2020-04-02 15:24] LABS: POC Glucose,Bedside 202 (70-110)
--- NOTE | 2020-04-02 18:37 | PC.NURSE ---
Pt alert and oriented and able to make needs known. RR even and unlabored. VSS. CB in reach. No complaints. ACHS and ssi. NAD. IVF's NS 50 ml/hr. Lungs cta. No bm at this time noted this shift. MX continues, remains safe.
[2020-04-03] VITALS (10 sets, daily range): BP systolic 138–187; BP diastolic 60–80; PULSE 50–75; RESP 18–20; TEMP 36.6–36.9; O2SAT 90–96; BMI 51.8
[2020-04-03 01:41] LABS: POC Glucose,Bedside 204 (70-110)
--- NOTE | 2020-04-03 02:14 | PC.NURSE ---
A&OX3. LUNGS DIMINISHED PER AUSCULTATION. USE OF CPAP THIS SHIFT. PT STATED I USE THIS CPAP WHENEVER I LAY DOWN BECAUSE IF I AM LAYING DOWN IT IS HARD TO BREATHE. TOLERATED USE OF CPAP WELL THIS SHIFT. ABDOMEN NOTED LARGE, ACTIVE BOWEL SOUNDS, SOFT AND NONTENDER PER PALPATION. NSR AND ASYMPTOMATIC BRADYCARDIA NOTED PER CIVIL SERVICE CLERK. PULSES +2. AMBULATION TO AND FROM BATHROOM WITH SBA AND WALKER TOLERATED WELL. ADEQUATE UO NOTED. C/O COHEN, ADMINISTERED TYLENOL PER AUG, ON REASSESSMENT PT NOTED RESTING IN BED WITH EYES CLOSED. VSS. WILL CONTINUE TO MONITOR.
[2020-04-03 05:31] LABS: POC Glucose,Bedside 159 (70-110)
[2020-04-03 06:15] LABS: Basophils % 0.3 % (0.1-2.0); Eosinophils # 0.2 K/mm3 (0.0-0.4); Eosinophils % 3.6 % (0.1-12.0); Lymphocytes # 1.4 K/mm3 (0.7-4.5); Lymphocytes % 26.5 % (10-50); Mean Corpuscular HGB Conc 30.5 g/dL (31.8-35.4); Mean Corpuscular Hemoglobin 28.5 pg (27.0-31.2); Mean Corpuscular Volume 93.4 fl (81-99); Mean Platelet Volume 8.2 fl (7.4-10.4); Monocytes # 0.4 K/mm3 (0.1-1.0); Monocytes % 7.7 % (1.7-9.3); Neutrophils # 3.4 K/mm3 (1.8-7.8); Neutrophils % 61.9 % (37.0-80.0); Platelet Count 223 K/mm3 (142-424); Red Blood Count 3.17 M/mm3 (4.20-5.40); Red Cell Distribution Width 14.2 % (11.5-17.5); White Blood Count 5.4 K/mm3 (4.8-10.8)
[2020-04-03 06:16] LABS: Hematocrit 29.6 % (37.0-47.0)
[2020-04-03 06:18] LABS: Chloride 115 mmol/L (98-107); Potassium 4.5 mmoL/L (3.5-5.1); Sodium 146 mmol/L (136-145)
[2020-04-03 06:21] LABS: Anion Gap 12.5 mEq/L (5-15); Calcium 8.4 mg/dl (8.4-10.2); Carbon Dioxide 23 mmol/L (22.0-30.0); Creatinine Clearance Estimated 23 mL/min (50-200); Estimated Glomerular Filt Rate 17 ml/min (>60); GFR (African American) 21 ML/MIN (>60); Glucose 162 mg/dl (74-100)
[2020-04-03 06:23] LABS: Blood Urea Nitrogen 82 mg/dl (7-17)
--- NOTE | 2020-04-03 08:29 | HMH.ACPN2 ---
Internal Medicine - PN: Subj *Date: 04/03/20 *Time: 08:29 Interval history: Patient has no complaints this morning. She is resting comfortably in bed with nasal CPAP on. She denies pain or shortness of breath. Patient has maintained good urine output and did not receive any Lasix yesterday. Nursing staff reports no problems. Patient increased her activity yesterday by ambulating in the room and sitting in the chair during the day. Blood pressure remains elevated at times Exam Vital signs and Labs for Last 24 Hours: Temp Pulse Resp BP Pulse Ox 97.8 F 70 18 187/64 H 90 L 04/03/20 07:52 04/03/20 07:52 04/03/20 07:52 04/03/20 07:52 04/03/20 07:52 Laboratory Results - last 24 hr 03/31/20 22:18: Urine Creatinine 48 04/02/20 11:50: POC Glucose 186 H 04/02/20 15:16: POC Glucose 202 H 04/02/20 21:14: POC Glucose 204 H 04/03/20 05:08: POC Glucose 159 H 04/03/20 05:50: WBC 5.4, RBC 3.17 L, Hgb 9.0 L, Hct 29.6 L, MCV 93.4, MCH 28.5, MCHC 30.5 L, RDW 14.2, Plt Count 223, MPV 8.2, Neut % (Auto) 61.9, Lymph % (Auto) 26.5, [place] % (Auto) 7.7, Eos % (Auto) 3.6, Baso % (Auto) 0.3, Neut # (Auto) 3.4, Lymph # (Auto) 1.4, [place] # (Auto) 0.4, Eos # (Auto) 0.2, Baso # (Auto) 0.0 04/03/20 05:50: Sodium 146 H, Potassium 4.5, Chloride 115 H, Carbon Dioxide 23, Anion Gap 12.5, BUN 82 H, Creatinine 2.80 H, Estimated Creat Clear 23, Estimated GFR 17 L*, Est GFR ( Amer) 21 L, Glucose 162 H, Calcium 8.4 I & O for Last 24 hours: Intake & Output 03/31/20 04/01/20 04/02/20 04/03/20 11:59 11:59 11:59 11:59 Intake Total 927 / 927 1701 / 1701 2008 Output Total 1250 / 1250 3550 / 3550 1900 / 1900 Balance -323 / -323 -1849 / -1849 109 / 109 Weight 340 lb 4 oz 337 lb 1 oz 341 lb 14.4 oz Microbiology Reports for the Last 24 Hours: Microbiology 04/01/20 00:24 Blood Blood Culture - Preliminary NO GROWTH AFTER 48 HOURS 04/01/20 00:24 Blood Blood Culture - Preliminary NO GROWTH AFTER 48 HOURS Narrative: Patient looks comfortable. Lungs are clear and without rales. Heart rate is bradycardic. Abdomen is obese and soft. Lower extremities have edema with significant adipose accumulation of the lower extremities Assessment and Plan (1) Acute kidney injury Status: Acute Category: Medical Code(s): N17.9 - Acute kidney failure, unspecified (2) Acute on chronic diastolic CHF (congestive heart failure) Status: Acute Category: Medical Code(s): I50.33 - Acute on chronic diastolic (congestive) heart failure (3) Hypertensive heart disease Status: Acute Category: Medical Code(s): I11.9 - Hypertensive heart disease without heart failure (4) Hyperkalemia Status: Resolved Category: Medical Code(s): E87.5 - Hyperkalemia (5) Urinary incontinence Status: Acute Qualifiers: Urinary Incontinence type: unspecified incontinence Qualified Code(s): R32 - Unspecified urinary incontinence Category: Medical Code(s): R32 - Unspecified urinary incontinence (6) Diabetes mellitus with hyperglycemia Status: Acute Category: Medical Code(s): E11.65 - Type 2 diabetes mellitus with hyperglycemia (7) History of CVA (cerebrovascular accident) Status: Chronic Category: Medical Code(s): Z86.73 - Personal history of transient ischemic attack (TIA), and cerebral infarction without residual deficits (8) Moderate mitral regurgitation Status: Chronic Category: Medical Code(s): I34.0 - Nonrheumatic mitral (valve) insufficiency (9) BMI 50.0-59.9, adult Status: Acute Category: Medical Code(s): Z68.43 - Body mass index [BMI] 50.0-59.9, adult - Assessment and plan all Dx Assessment and Plan for all problems:: 1. Acute kidney injury is showing slow signs of improvement. Continue gentle IV fluid hydration. Await BMP tomorrow. Urine studies from admission are still pending 2. Acute diastolic heart failure has resolved
[2020-04-03 11:27] LABS: POC Glucose,Bedside 212 (70-110)
--- NOTE | 2020-04-03 14:13 | PC.NURSE ---
Pt states that she did have 2 bms yesterday and they were formed bm's.
[2020-04-03 15:18] LABS: POC Glucose,Bedside 157 (70-110)
[2020-04-03 15:27] LABS: Sodium, Urine 55 mmol/L (Not Estab.)
--- NOTE | 2020-04-03 17:43 | PC.NURSE ---
Pt is alert and oriented and able to make needs known. RR are even and unlabored at rest. Pt does have exertional soa. CB in reach. NS infusing at 50 ml/hr. Lungs cta, bs x 4. VSS. Remains safe.Mx continues at this time. Pt is up to chair. FS's achs continues with ssi.
[2020-04-03 22:19] LABS: POC Glucose,Bedside 237 (70-110)
[2020-04-04] VITALS (7 sets, daily range): BP systolic 149–166; BP diastolic 51–89; PULSE 59–72; RESP 16–20; TEMP 36.5–36.8; O2SAT 93–97; BMI 51.9
--- NOTE | 2020-04-04 03:11 | PC.NURSE ---
A&OX3. MARKETING PROJECT MANAGER EQUAL BILAT. LUNGS NOTED DIMINISHED T/O PER AUSCULTATION. TOLERATED CPAP AND RA WELL THIS SHIFT. CPAP USED WHILE LYING IN BED, RA WHILE AWAKE AND SITTING UP. PT REPORTS I USE MY CPAP FOR WHEN I LAY DOWN SO I CAN BREATHE EASIER. ABDOMEN LARGE, ACTIVE BOWEL SOUNDS, SOFT AND NONTENDER PER PALPATION. BLE NOTED WITH NONPITTING EDEMA. PULSES +2. NSR NOTED PER SHOE CLERK. AMBULATES WITH USE OF WALKER AND SBA, TOLERATES WELL. INDEPENDENT WITH ADL'S 1200ML FLUID RESTRICTION MAINTAINED THIS SHIFT. 2 INCONTINENT EPISODES OF URINE NOTED THIS SHIFT, PT REPORTS THAT SHE DOES HAVE INCONTINENT EPISODES AT HOME AT TIMES. ADEQUATE UO NOTED THIS SHIFT. VSS. WILL CONTINUE TO MONITOR.
[2020-04-04 06:52] LABS: POC Glucose,Bedside 157 (70-110)
[2020-04-04 07:03] LABS: Basophils % 0.2 % (0.1-2.0); Eosinophils # 0.2 K/mm3 (0.0-0.4); Eosinophils % 3.7 % (0.1-12.0); Hematocrit 27.5 % (37.0-47.0); Hemoglobin 8.4 g/dL (12.2-16.2); Lymphocytes # 1.4 K/mm3 (0.7-4.5); Lymphocytes % 23.6 % (10-50); Mean Corpuscular HGB Conc 30.6 g/dL (31.8-35.4); Mean Corpuscular Hemoglobin 28.5 pg (27.0-31.2); Monocytes # 0.4 K/mm3 (0.1-1.0); Neutrophils # 3.8 K/mm3 (1.8-7.8); Neutrophils % 65.5 % (37.0-80.0); Platelet Count 265 K/mm3 (142-424); Red Blood Count 2.95 M/mm3 (4.20-5.40); Red Cell Distribution Width 14.3 % (11.5-17.5); White Blood Count 5.8 K/mm3 (4.8-10.8)
[2020-04-04 07:10] LABS: Chloride 117 mmol/L (98-107); Sodium 148 mmol/L (136-145)
[2020-04-04 07:11] LABS: Potassium 4.5 mmoL/L (3.5-5.1)
--- NOTE | 2020-04-04 07:12 | HMH.ACPN2 ---
Internal Medicine - PN: Subj *Date: 04/04/20 *Time: 07:12 Interval history: Patient reports orthopnea throughout the day yesterday. This can be somewhat relieved with application of her CPAP. Patient reports weakness when ambulating. She had 2 episodes of urinary incontinence yesterday. She denies pain. Exam Vital signs and Labs for Last 24 Hours: Temp Pulse Resp BP Pulse Ox 98.3 F 70 18 149/80 H 95 04/04/20 04:00 04/04/20 04:00 04/04/20 04:00 04/04/20 04:00 04/04/20 04:00 Laboratory Results - last 24 hr 03/31/20 22:18: Urine Sodium 55 04/03/20 11:14: POC Glucose 212 H 04/03/20 15:06: POC Glucose 157 H 04/03/20 20:27: POC Glucose 237 H 04/04/20 06:15: WBC 5.8, RBC 2.95 L, Hgb 8.4 L, Hct 27.5 L, MCV 93.0, MCH 28.5, MCHC 30.6 L, RDW 14.3, Plt Count 265, MPV 8.0, Neut % (Auto) 65.5, Lymph % (Auto) 23.6, [place] % (Auto) 7.0, Eos % (Auto) 3.7, Baso % (Auto) 0.2, Neut # (Auto) 3.8, Lymph # (Auto) 1.4, [place] # (Auto) 0.4, Eos # (Auto) 0.2, Baso # (Auto) 0.0 04/04/20 06:39: POC Glucose 157 H I & O for Last 24 hours: Intake & Output 04/01/20 04/02/20 04/03/20 04/04/20 11:59 11:59 11:59 11:59 Intake Total 927 / 927 1701 / 1701 2008 1584 / 1584 Output Total 1250 / 1250 3550 / 3550 1900 / 1900 3400 / 3400 Balance -323 / -323 -1849 / -1849 109 / 109 -1816 / -1816 Weight 340 lb 4 oz 337 lb 1 oz 341 lb 14.4 oz 342 lb 12.8 oz Microbiology Reports for the Last 24 Hours: Microbiology 04/01/20 00:24 Blood Blood Culture - Preliminary 03/31/20 22:18 Urine,Clean Catch Urine Culture - Preliminary NO GROWTH AFTER 24 HOURS Narrative: Patient looks comfortable. She is in bed with CPAP on. Lung exam reveals distant breath sounds at the bases with faint rales in the medial bases. Heart has a regular rate and rhythm. Abdomen is soft and obese. Extremities have lipedema. Assessment and Plan (1) Acute kidney injury Status: Acute Category: Medical Code(s): N17.9 - Acute kidney failure, unspecified (2) Acute on chronic diastolic CHF (congestive heart failure) Status: Acute Category: Medical Code(s): I50.33 - Acute on chronic diastolic (congestive) heart failure (3) Hypertensive heart disease Status: Acute Category: Medical Code(s): I11.9 - Hypertensive heart disease without heart failure (4) Hyperkalemia Status: Resolved Category: Medical Code(s): E87.5 - Hyperkalemia (5) Urinary incontinence Status: Acute Qualifiers: Urinary Incontinence type: unspecified incontinence Qualified Code(s): R32 - Unspecified urinary incontinence Category: Medical Code(s): R32 - Unspecified urinary incontinence (6) Diabetes mellitus with hyperglycemia Status: Acute Category: Medical Code(s): E11.65 - Type 2 diabetes mellitus with hyperglycemia (7) History of CVA (cerebrovascular accident) Status: Chronic Category: Medical Code(s): Z86.73 - Personal history of transient ischemic attack (TIA), and cerebral infarction without residual deficits (8) Moderate mitral regurgitation Status: Chronic Category: Medical Code(s): I34.0 - Nonrheumatic mitral (valve) insufficiency (9) BMI 50.0-59.9, adult Status: Acute Category: Medical Code(s): Z68.43 - Body mass index [BMI] 50.0-59.9, adult - Assessment and plan all Dx Assessment and Plan for all problems:: 1. Patient's IV fluids will be stopped due to her orthopnea 2. Await BMP this morning. Continue to hold diuretics. 3. PT and OT eval today 4. Renal ultrasound/doppler today
[2020-04-04 07:14] LABS: Anion Gap 13.5 mEq/L (5-15); Blood Urea Nitrogen 73 mg/dl (7-17); Calcium 8.6 mg/dl (8.4-10.2); Carbon Dioxide 22 mmol/L (22.0-30.0); Creatinine Clearance Estimated 22 mL/min (50-200); Estimated Glomerular Filt Rate 17 ml/min (>60); GFR (African American) 20 ML/MIN (>60); Glucose 153 mg/dl (74-100)
--- NOTE | 2020-04-04 07:15 | US_ITS ---
PROCEDURE: US KIDNEY CLINICAL INDICATION: Acute Kidney Injury COMPARISON: CT ABDPELW/O CT ABD PELVIS W/O CONTRAST from 11/10/2014 FINDINGS: The right kidney is [id number]. No hydronephrosis, cortical thinning, or renal mass or perinephric fluid collection is evident. Echogenic focus is noted in the mid aspect of the right kidney consistent with nonobstructing stone. The left kidney is [id number]. No hydronephrosis, cortical thinning, or renal mass or perinephric fluid collection is evident. IMPRESSION: Possible right nephrolithiasis. No hydronephrosis or other significant anomaly. Dictated by: Krishna Sepulveda MD 04/04/2020 10:35 Krishna Sepulveda MD in [place] 04/04/2020 10:35
--- NOTE | 2020-04-04 08:28 | HMH.PNCARD ---
Subjective Date: 04/04/20 Time: 08:28 Principal diagnosis: Acute renal insufficiency Interval history: 55-year-old white female sitting in bedside chair in no acute distress. States her breathing has improved. She denies any chest pain, pressure or tightness. Exam Vital signs and Labs for Last 24 Hours: Temp Pulse Resp BP Pulse Ox 98.3 F 70 18 149/80 H 95 04/04/20 04:00 04/04/20 04:00 04/04/20 04:00 04/04/20 04:00 04/04/20 04:00 Laboratory Results - last 24 hr 03/31/20 22:18: Urine Sodium 55 04/03/20 11:14: POC Glucose 212 H 04/03/20 15:06: POC Glucose 157 H 04/03/20 20:27: POC Glucose 237 H 04/04/20 06:15: WBC 5.8, RBC 2.95 L, Hgb 8.4 L, Hct 27.5 L, MCV 93.0, MCH 28.5, MCHC 30.6 L, RDW 14.3, Plt Count 265, MPV 8.0, Neut % (Auto) 65.5, Lymph % (Auto) 23.6, [place] % (Auto) 7.0, Eos % (Auto) 3.7, Baso % (Auto) 0.2, Neut # (Auto) 3.8, Lymph # (Auto) 1.4, [place] # (Auto) 0.4, Eos # (Auto) 0.2, Baso # (Auto) 0.0 04/04/20 06:15: Sodium 148 H, Potassium 4.5, Chloride 117 H, Carbon Dioxide 22, Anion Gap 13.5, BUN 73 H, Creatinine 2.90 H, Estimated Creat Clear 22, Estimated GFR 17 L*, Est GFR ( Amer) 20 L, Glucose 153 H, Calcium 8.6 04/04/20 06:39: POC Glucose 157 H I & O for Last 24 hours: Intake & Output 04/01/20 04/02/20 04/03/20 04/04/20 11:59 11:59 11:59 11:59 Intake Total 927 / 927 1701 / 1701 2008 / 2008 1584 / 1584 Output Total 1250 / 1250 3550 / 3550 1900 / 1900 3400 / 3400 Balance -323 / -323 -1849 / -1849 109 / 109 -1816 / -1816 Weight 340 lb 4 oz 337 lb 1 oz 341 lb 14.4 oz 342 lb 12.8 oz Microbiology Reports for the Last 24 Hours: Microbiology 04/01/20 00:24 Blood Blood Culture - Preliminary 03/31/20 22:18 Urine,Clean Catch Urine Culture - Preliminary NO GROWTH AFTER 24 HOURS - Constitutional no acute distress, morbidly obese - *Routine Respiratory Exam Present: CTA bilaterally - *Routine Cardiovascular Exam Present: RRR - *Routine Extremities Exam Present: edema. Absent: cyanosis, clubbing Progress Note: A&P (1) Acute kidney injury Status: Acute (2) Acute on chronic diastolic CHF (congestive heart failure) Status: Acute (3) Hypertensive heart disease Status: Acute (4) Hyperkalemia Status: Resolved (5) Urinary incontinence Status: Acute (6) Diabetes mellitus with hyperglycemia Status: Acute (7) History of CVA (cerebrovascular accident) Status: Chronic (8) Moderate mitral regurgitation Status: Chronic (9) BMI 50.0-59.9, adult Status: Acute Assessment and Plan for All Diagnoses:: 1. Acute on chronic diastolic congestive heart failure, clinically stable with a negative fluid balance of almost 4 L. Diuretic therapy is being administered intermittently based on clinical symptoms due to acute renal insufficiency 2. Acute renal insufficiency with slow improvement. Work-up per Dr. Courtney. 3. Hyperkalemia, resolved 4. Coronary artery disease, clinically stable on aspirin and Plavix. 5. Moderate mitral regurgitation, echocardiogram this admission shows mild mitral regurgitation. 6. Hypertension, controlled on combination of Norvasc carvedilol and hydralazine. Nothing to add at this time. Please call if needed.
--- NOTE | 2020-04-04 09:46 | P.PN_ITS ---
Internal Medicine - PN: Subj *Date: 04/04/20 *Time: 09:46 Exam Vital signs and Labs for Last 24 Hours: Temp Pulse Resp BP Pulse Ox 98.2 F 72 20 166/62 H 97 04/04/20 08:00 04/04/20 08:00 04/04/20 08:00 04/04/20 08:00 04/04/20 08:00 Laboratory Results - last 24 hr 03/31/20 22:18: Urine Sodium 55 04/03/20 11:14: POC Glucose 212 H 04/03/20 15:06: POC Glucose 157 H 04/03/20 20:27: POC Glucose 237 H 04/04/20 06:15: WBC 5.8, RBC 2.95 L, Hgb 8.4 L, Hct 27.5 L, MCV 93.0, MCH 28.5, MCHC 30.6 L, RDW 14.3, Plt Count 265, MPV 8.0, Neut % (Auto) 65.5, Lymph % (Auto) 23.6, [place] % (Auto) 7.0, Eos % (Auto) 3.7, Baso % (Auto) 0.2, Neut # (Auto) 3.8, Lymph # (Auto) 1.4, [place] # (Auto) 0.4, Eos # (Auto) 0.2, Baso # (Auto) 0.0 04/04/20 06:15: Sodium 148 H, Potassium 4.5, Chloride 117 H, Carbon Dioxide 22, Anion Gap 13.5, BUN 73 H, Creatinine 2.90 H, Estimated Creat Clear 22, Estimated GFR 17 L*, Est GFR ( Amer) 20 L, Glucose 153 H, Calcium 8.6 04/04/20 06:39: POC Glucose 157 H I & O for Last 24 hours: Intake & Output 04/01/20 04/02/20 04/03/20 04/04/20 23:59 23:59 23:59 23:59 Intake Total 1647 / 1647 2421 / 2421 1819 / 1819 934 / 934 Output Total 4800 / 4800 1500 / 1500 2600 / 2600 1200 / 1200 Balance -3153 / -3153 921 / 921 -781 / -781 -266 / -266 Weight 154 kg 152.889 kg 155.083 kg 155.491 kg Microbiology Reports for the Last 24 Hours: Microbiology 03/31/20 22:18 Urine,Clean Catch Urine Culture - Final NO GROWTH AFTER 48 HOURS 04/01/20 00:24 Blood Blood Culture - Preliminary Assessment and Plan (1) Acute kidney injury Status: Acute Category: Medical Code(s): N17.9 - Acute kidney failure, unspecified (2) Acute on chronic diastolic CHF (congestive heart failure) Status: Acute Category: Medical Code(s): I50.33 - Acute on chronic diastolic (congestive) heart failure (3) Hypertensive heart disease Status: Acute Category: Medical Code(s): I11.9 - Hypertensive heart disease without heart failure (4) Hyperkalemia Status: Resolved Category: Medical Code(s): E87.5 - Hyperkalemia (5) Urinary incontinence Status: Acute Qualifiers: Urinary Incontinence type: unspecified incontinence Qualified Code(s): R32 - Unspecified urinary incontinence Category: Medical Code(s): R32 - Unspecified urinary incontinence (6) Diabetes mellitus with hyperglycemia Status: Acute Category: Medical Code(s): E11.65 - Type 2 diabetes mellitus with hyperglycemia (7) History of CVA (cerebrovascular accident) Status: Chronic Category: Medical Code(s): Z86.73 - Personal history of transient ischemic attack (TIA), and cerebral infarction without residual deficits (8) Moderate mitral regurgitation Status: Chronic Category: Medical Code(s): I34.0 - Nonrheumatic mitral (valve) insufficiency (9) BMI 50.0-59.9, adult Status: Acute Category: Medical Code(s): Z68.43 - Body mass index [BMI] 50.0-59.9, adult The patient's infection will respond to the chosen ABx?: Yes (EMPIRIC THERAPY APPROPRIATE) Is the patient receiving the right drug, dose, and route?: Yes Could a more targeted ABx be ordered?: No (CULTURES STILL PENDING)
--- NOTE | 2020-04-04 09:46 | HMH.PTEV ---
Physical Therapy Evaluation Rehab PT IP Evaluation Start: 04/04/20 07:18 Freq: ONCE Status: Active Protocol: Document 04/04/20 09:43 MAO (Rec: 04/04/20 09:46 PHOHANG [id number]) Subjective/History History History 55 yowf adm to [facility] with generalized weakness and difficult mobility due to HUGH. PMH: prior CVA, CHF, DM-II, CAD, MO. She reports living alone with 1 step to enter the home, has RW and mobility scooter. Subjective Subjective Pt reports no c/o this am. Rehab PT IP Eval Objective Appearance Patient Behavior Appropriate Patient Orientation Person,Place,Time Difficulty following instructions none Speech Pattern Clear Ambulation Patient Able to Ambulate Yes Ambulation Observation IP General Gait Pattern Observation Shuffling Step Ambulation Distance (feet) 75 Ambulation Assistive Device Rolling Walker Ambulation Ability Independent Balance Ability to Arise Able, uses arms to help Sitting Balance Steady, safe Standing Balance Steady, wide stance Dynamic Sitting Balance Ability Good Dynamic Standing Balance Ability Fair Transfers Bed Transfer Ability Supervision/Stand by Chair Transfer Ability Supervision/Stand by Sit to Stand Bed Transfer Ability Supervision/Stand by Sit to Stand Chair Transfer Ability Supervision/Stand by ROM All Extremities PT ROM Status WFL MMT All Extremities PT MMT WFL Rehab PT IP prob,goals,plan Problems Date of Evaluation: 04/04/20 Discharge Plan PT Discharge Plan Pt appears to be at baseline for all mobility, can return home once medically stable. G -code Required No Eval Complexity Eval Charge Codes 25527 - Moderate Complexity PHYSICIAN CERTIFICATION: I certify the specified therapy services for Surekha Rios are required, authorized, and reviewed every 30 days.
--- NOTE | 2020-04-04 10:35 | HMH.OTEV ---
OT Inpatient Evaluation Rehab OT IP Evaluation Start: 04/04/20 07:18 Freq: ONCE Status: Complete Protocol: Document 04/04/20 10:28 YOMI (Rec: 04/04/20 10:35 YOMI [id number]) Rehab OT IP Assessment Subjective History 55 year old female with a hx of diabetes, diastolic CHF, CVA, HTN and CAD who presented to ED after slight worsening of chronic dyspnea over last 3 days. Patient verablize to live alone in 1 story home with 1STE. Son assist with taking out trash and transportation for outside appointments and grocery shopping. Patient ambulated with RW. Subjective I just go so weak. Objective Patient Orientation Person,Place,Time,Name,Age, Birthday,Day of Month,Day of Week,Month,Year,Time of Day, Patient Baseline,Situation Upper Extremity Gross ROM WNL Transfer Training Sit/Stand Transfer,Sit/Stand/ Step Transfer,Sit/Stand/Pivot Transfer Assist Level Independent Chair Transfer Ability Independent Chair Transfer Technique Sit to/from Ambulatory Chair Transfer Assistive Devices Standard Walker Feeding Ability Independent Rehab OT IP prob,goals,plan Problems Date of Evaluation: 04/04/20 Rehab Potential Rehab Potential Innapropriate for Skilled Therapy Discharge Plan OT Discharge Plan Patient presents to be inappropriate for skilled IP services. Patient presents to be independent with fx'l mobility with needing no assistance at this time. Eval Complexity Eval Charge Codes 92938 - Low Complexity G Codes G -code Required No PHYSICIAN CERTIFICATION: I certify the specified therapy services for Surekha Rios are required, authorized, and reviewed every 30 days.
[2020-04-04 10:49] LABS: POC Glucose,Bedside 226 (70-110)
--- NOTE | 2020-04-04 15:36 | PC.NURSE ---
No needs voiced this shift. Denies pain. Seen by PT/OT for eval. Pt ambulates independently w/ a rolling walker w/ no safety concerns. Does report w/ long distances that she does become SOA. Remains on room air. Pt has been up to chair majority of shift. Voiding w/o difficulty. 1 BM this shift. Currently resting in bed w/ CPAP on, pt states she did not sleep much last night. Call paul w/in reach.
--- NOTE | 2020-04-04 15:51 | DIET.NUTRFU ---
PO intakes ~75%, BG moderate-high- ~220, weight stable. No nutritional concerns at this time.
[2020-04-04 16:38] LABS: POC Glucose,Bedside 156 (70-110)
--- NOTE | 2020-04-04 19:10 | PC.NURSE ---
report given to rod
[2020-04-04 20:12] LABS: POC Glucose,Bedside 216 (70-110)
[2020-04-04 23:15] LABS: Osmolality, Urine 405 mOsmol/kg (.)
[2020-04-05] VITALS: PULSE 70
[2020-04-05 04:00] VITALS: BP 159/68; PULSE 73; PULSE 80; RESP 18; TEMP 36.4; O2SAT 90
--- NOTE | 2020-04-05 04:06 | PC.NURSE ---
Pt has slept well this shift. Tolerated CPAP without difficulty. Denies pain/soa. Cardiac rhythm NSR. Fluid restriction of 1200 ml noted. Pt verbalizes understanding of fluid restriction.
[2020-04-05 05:00] VITALS: BMI 51.5
[2020-04-05 05:53] LABS: POC Glucose,Bedside 167 (70-110)
[2020-04-05 06:36] LABS: Basophils % 0.3 % (0.1-2.0); Eosinophils # 0.2 K/mm3 (0.0-0.4); Eosinophils % 3.1 % (0.1-12.0); Hematocrit 28.2 % (37.0-47.0); Hemoglobin 8.6 g/dL (12.2-16.2); Lymphocytes # 1.2 K/mm3 (0.7-4.5); Lymphocytes % 22.5 % (10-50); Mean Corpuscular HGB Conc 30.5 g/dL (31.8-35.4); Mean Corpuscular Hemoglobin 28.3 pg (27.0-31.2); Monocytes # 0.4 K/mm3 (0.1-1.0); Monocytes % 6.7 % (1.7-9.3); Neutrophils # 3.6 K/mm3 (1.8-7.8); Neutrophils % 67.3 % (37.0-80.0); Platelet Count 262 K/mm3 (142-424); Red Blood Count 3.03 M/mm3 (4.20-5.40); Red Cell Distribution Width 14.1 % (11.5-17.5); White Blood Count 5.3 K/mm3 (4.8-10.8)
[2020-04-05 06:43] LABS: Chloride 116 mmol/L (98-107); Potassium 4.7 mmoL/L (3.5-5.1); Sodium 148 mmol/L (136-145)
[2020-04-05 06:46] LABS: Anion Gap 13.7 mEq/L (5-15); Blood Urea Nitrogen 67 mg/dl (7-17); Calcium 8.9 mg/dl (8.4-10.2); Carbon Dioxide 23 mmol/L (22.0-30.0); Creatinine Clearance Estimated 23 mL/min (50-200); Estimated Glomerular Filt Rate 18 ml/min (>60); GFR (African American) 22 ML/MIN (>60); Glucose 161 mg/dl (74-100)
--- NOTE | 2020-04-05 07:21 | HMH.ACPN2 ---
Internal Medicine - PN: Subj *Date: 04/05/20 *Time: 07:21 Interval history: Patient has no new complaints. She denies shortness of breath. She feels stronger over the last 24 hours than she has at any point during her hospitalization. Exam Vital signs and Labs for Last 24 Hours: Temp Pulse Resp BP Pulse Ox 97.5 F L 73 18 159/68 H 90 L 04/05/20 04:00 04/05/20 04:00 04/05/20 04:00 04/05/20 04:00 04/05/20 04:00 Laboratory Results - last 24 hr 03/31/20 22:18: Urine Osmolality 405, Urine Sodium 55 04/04/20 10:38: POC Glucose 226 H 04/04/20 16:10: POC Glucose 156 H 04/04/20 20:02: POC Glucose 216 H 04/05/20 05:32: POC Glucose 167 H 04/05/20 06:20: WBC 5.3, RBC 3.03 L, Hgb 8.6 L, Hct 28.2 L, MCV 93.0, MCH 28.3, MCHC 30.5 L, RDW 14.1, Plt Count 262, MPV 8.0, Neut % (Auto) 67.3, Lymph % (Auto) 22.5, [place] % (Auto) 6.7, Eos % (Auto) 3.1, Baso % (Auto) 0.3, Neut # (Auto) 3.6, Lymph # (Auto) 1.2, [place] # (Auto) 0.4, Eos # (Auto) 0.2, Baso # (Auto) 0.0 04/05/20 06:20: Sodium 148 H, Potassium 4.7, Chloride 116 H, Carbon Dioxide 23, Anion Gap 13.7, BUN 67 H, Creatinine 2.70 H, Estimated Creat Clear 23, Estimated GFR 18 L*, Est GFR ( Amer) 22 L, Glucose 161 H, Calcium 8.9 I & O for Last 24 hours: Intake & Output 04/02/20 04/03/20 04/04/20 04/05/20 11:59 11:59 11:59 11:59 Intake Total 1701 / 1701 2008 / 2008 2184 / 2184 120 / 120 Output Total 3550 / 3550 1900 / 1900 3400 / 4100 1999 Balance -1849 / -1849 109 / 109 -1216 / -1916 -1880 / -1880 Weight 337 lb 1 oz 341 lb 14.4 oz 342 lb 12.8 oz 340 lb Microbiology Reports for the Last 24 Hours: Microbiology 03/31/20 22:18 Urine,Clean Catch Urine Culture - Final NO GROWTH AFTER 48 HOURS Narrative: Patient appears comfortable. She is wearing her nasal CPAP. Lungs are clear. Heart has a regular rate and rhythm. Abdomen is obese and soft. Assessment and Plan (1) Acute kidney injury Status: Acute Category: Medical Code(s): N17.9 - Acute kidney failure, unspecified (2) Acute on chronic diastolic CHF (congestive heart failure) Status: Resolved Category: Medical Code(s): I50.33 - Acute on chronic diastolic (congestive) heart failure (3) Hypertensive heart disease Status: Acute Category: Medical Code(s): I11.9 - Hypertensive heart disease without heart failure (4) Hyperkalemia Status: Resolved Category: Medical Code(s): E87.5 - Hyperkalemia (5) Urinary incontinence Status: Acute Qualifiers: Urinary Incontinence type: unspecified incontinence Qualified Code(s): R32 - Unspecified urinary incontinence Category: Medical Code(s): R32 - Unspecified urinary incontinence (6) Diabetes mellitus with hyperglycemia Status: Acute Category: Medical Code(s): E11.65 - Type 2 diabetes mellitus with hyperglycemia (7) History of CVA (cerebrovascular accident) Status: Chronic Category: Medical Code(s): Z86.73 - Personal history of transient ischemic attack (TIA), and cerebral infarction without residual deficits (8) Moderate mitral regurgitation Status: Chronic Category: Medical Code(s): I34.0 - Nonrheumatic mitral (valve) insufficiency (9) BMI 50.0-59.9, adult Status: Acute Category: Medical Code(s): Z68.43 - Body mass index [BMI] 50.0-59.9, adult - Assessment and plan all Dx Assessment and Plan for all problems:: 1. Patient's renal function has not improved as quickly as anticipated. She may be looking at her new baseline. Renal ultrasound yesterday was unremarkable except for a stone. Patient will be discharged home today with close follow-up in the office on Saturday, October 30 at 1:30 PM 2. Medication adjustments have been made and explained to the patient. Nursing staff will review those at discharge
--- NOTE | 2020-04-05 07:25 | HMH.DCSUM ---
General - General Admission date:: 04/01/20 Discharge date: 04/05/20 HPI HPI: 55-year-old female with past medical history of diabetes, diastolic CHF, CVA, hypertension, coronary artery disease presented to the emergency department due to slight worsening of her chronic dyspnea over the last 3 days with associated weakness and urinary incontinence at home. In regards to patient's dyspnea she has chronic intermittent dyspnea but does admit she felt more swollen than she had compared to a week ago. She denied chest pain. Patient does have known diastolic CHF and also admits to being unable to follow-up with referral to local lymphedema clinic for her chronic swelling. In regards to her urinary symptoms for the last 3 days she reported urinary incontinence with inability to make it to her bathroom in time. She had urinary frequency as well as a foul-smelling urine but denies dysuria or hematuria. She is also not had any fevers or chills. She denies chest pain. She did report to the ER physician pain across her back and shoulder blades. Patient was also concerned by sensation of hearing her heartbeat in her ear whenever she would lay down Hospital Course Hospital Course: Patient was admitted and placed on gentle IV fluid hydration for her acute kidney injury. Urine studies were ordered. Patient's BUN and creatinine were followed daily. While creatinine only change slightly from a high of 3-2.7 at discharge patient's BUN decreased from 102 down to 67 on the day of discharge. Upon admission nephrotoxic medications were discontinued. Carvedilol was maximized and as hospitalization progressed and patient remained hypertensive hydralazine was added to the patient's antihypertensive regimen. The first morning of admission patient was also administered IV Lasix due to abnormal lung exam with basilar crackles from acute diastolic CHF on top of chronic diastolic CHF. Patient had excellent response to the diuretic. From that point on she was also placed on fluid restrictions as there was great concern about the patient becoming fluid overloaded with her impaired kidney function. Patient did well through the weekend. She underwent physical therapy evaluation on April 04 and was deemed appropriate to return home with home health. Renal ultrasound was also performed on April 04 which showed normal architecture with only an apparent kidney stone. Echocardiogram had also been performed which confirmed patient's diastolic dysfunction but no change in LV function. On the morning of April 04 patient did complain of some orthopnea and IV fluids were discontinued. Fluid restrictions were maintained. Patient did not require additional IV Lasix. By the patient dyspnea had resolved. On the patient was discharged home and will follow-up in the office on April 08 at 130. Patient also has diabetes. Metformin was discontinued due to her acute kidney injury. Pioglitazone will also be discontinued due to a chronic complaint of lower extremity swelling Patient's hypertension was not well controlled during hospitalization due to medication adjustments and discontinuation of nephrotoxic medications. Additional adjustments will be made as an outpatient. Hydralazine was added to the patient's regimen and carvedilol was maximized during hospitalization Patient complained of urinary incontinence which is not necessarily a new complaint on presentation but it had seem to be exacerbated and had associated dysuria. Patient was given Rocephin intravenously while hospitalized until urine and blood cultures returned negative. Patient had significant hyperkalemia on admission and was given calcium gluconate, IV fluids, D50 and insulin. These measures did not change the patient's potassium. On the initial day of admission patient had additional Kayexalate added at 3 times daily and was given a single dose of Lasix described above. Patient's potassium retur
[2020-04-05 07:59] VITALS: BP 161/71; PULSE 74; RESP 19; TEMP 36.4; O2SAT 93
--- NOTE | 2020-04-05 10:44 | SW/DCPLANNER ---
RECEIVED REFERRAL FOR HOME HEALTH SERVICES... I SPOKE WITH PATIENT AND SHE CHOSE [facility], SHE STATED SHE USED THEM BEFORE AND FELT THEY DID A GOOD JOB... SHE IS DISCHARGING HOME TODAY AND WILL START SERVICES IN THE AM... PATIENT ASKED ABOUT WAIVER SERVICES AND I SHARED THAT WITH THE NURSE TO SPEAK WITH PATIENT....
--- NOTE | 2020-04-05 17:25 | PC.NURSE ---
THIS RN PROVIDED D/C INSTRUCTIONS, PATIENT VERBALIZED AN UNDERSTANDING. NO CONCERNS AT THIS TIME.
== END 2020-04-05 10:50 | disposition home health service (06) | DRG 291 ==
LOC: ER 04-01 00:11 → 2ND 04-01 00:29
PROVIDERS: Admitting Provider Family Medicine; Emergency Provider Emergency Medicine; PCP Nurse Practitioner Family; Visit Provider Family Medicine
DX: I50.33 Acute on chronic diastolic (congestive) heart failure (principal); I13.0 Hypertensive heart and chronic kidney disease with heart failure and stage 1 through stage 4 chronic kidney disease, or unspecified chronic kidney disease; N17.9 Acute kidney failure, unspecified; N18.4 Chronic kidney disease, stage 4 (severe); Z68.43 Body mass index [BMI] 50.0-59.9, adult; I69.354 Hemiplegia and hemiparesis following cerebral infarction affecting left non-dominant side; E87.0 Hyperosmolality and hypernatremia; R32 Unspecified urinary incontinence; E11.65 Type 2 diabetes mellitus with hyperglycemia; I25.10 Atherosclerotic heart disease of native coronary artery without angina pectoris; I34.0 Nonrheumatic mitral (valve) insufficiency; Z95.5 Presence of coronary angioplasty implant and graft; E66.01 Morbid (severe) obesity due to excess calories; Z79.4 Long term (current) use of insulin; Z79.02 Long term (current) use of antithrombotics/antiplatelets; Z79.82 Long term (current) use of aspirin; Z88.2 Allergy status to sulfonamides; Z98.84 Bariatric surgery status
CPT/HCPCS: 36415; 71046; 76770; 80048; 80076; 81001; 82570; 82962; 83605; 83880; 83935; 84300; 84484; 85025; 85378; 86328; 87040; 87077; 87086; 93005; 93306; 94760; 94761; 96374; 96375; 97162; 97165; 97530; 99285

== ENCOUNTER 2020-04-11 13:21 | Emergency (ER) | payer MEDICARE, MEDICAID, SELFPAY ==
--- NOTE | 2020-04-11 13:27 | ECG_ITS ---
APPROVED REPORT Exam: Resting ECG HR:76 bpm ECG Measurements Heart Rate 76 AXES WV 164 P 20 QRSd 86 QRS 6 QT 434 T 50 QTc 488 Conclusion Normal sinus rhythm Incomplete RBBB Prolonged QT Abnormal ECG Electronically signed by : Bhanu Conway, 04/12/2020 16:49:54
[2020-04-11 13:31] VITALS: BP 171/68; PULSE 75; RESP 28; TEMP 36.6; O2SAT 87; BMI 51.7
--- NOTE | 2020-04-11 13:34 | XR_ITS ---
PROCEDURE: XR CHEST PORTABLE CLINICAL HISTORY: shortness of breath COMPARISON: CT CTAC CTA-CHEST from 11/10/2012 CR CXR2V XR chest 2V from 06/22/2018 DX XR CHEST 2V from 04/30/2019 CR XR CHEST 2V from 03/31/2020 FINDINGS: There is cardiomegaly with mild pulmonary venous congestion. The lung bases are under penetrated. Patchy density is present in the right suprahilar region and right lower lobe consistent with right-sided pneumonia with small bilateral effusions. IMPRESSION: Mild CHF with right-sided pneumonia and small bilateral effusions Dictated by: Krishna Sepulveda MD 04/11/2020 14:08 Krishna Sepulveda MD in [place] 04/11/2020 14:08
--- NOTE | 2020-04-11 13:53 | HMH.EDGENADL ---
ED Disposition Clinical Impression: Hypernatremia, Hyperkalemia Community acquired pneumonia Qualifiers: Laterality: right Lung location: lower lobe of lung Qualified Code(s): J18.9 - Pneumonia, unspecified organism Congestive heart failure Qualifiers: Heart failure type: combined systolic and diastolic Heart failure chronicity: chronic Qualified Code(s): I50.42 - Chronic combined systolic (congestive) and diastolic (congestive) heart failure Disposition: Home, Self-Care Condition on Discharge: Good Instructions: DI for Pneumonia -- Adult Prescriptions: Doxycycline Hyclate [Doxycycline 100mg Capsule] 100 mg PO BID #20 cap Transmission Status: Pending to [facility] cephALEXin [Keflex 500mg Cap] 500 mg PO BID #20 cap Transmission Status: Pending to [facility] Referrals: Domingo Courtney MD [Primary Care Provider] - - Critical Care Critical Care Time: No Attestation: On 04/11/20, the high probability of a clinically significant, sudden or life threatening deterioration of the following system(s) required my full and direct attention, intervention and personal management. The time I documented below is in addition to time spent performing reported procedures but includes the following listed in this critical care notation. Medical Decision Making - Medical Records Medical records reviewed: Yes: I reviewed the patient's medical records. - [place] Inquiry Pt receiving controlled substance: No Vital Signs: 04/11/20 13:31 04/11/20 14:28 Temperature 97.9 F Temperature Source Oral Pulse Rate [Right Radial] 75 64 Respiratory Rate 28 H 18 Blood Pressure [Right Arm] 171/68 H 143/77 H Blood Pressure Mean [Right Arm] 102 99 Blood Pressure Source [Right Arm] Automatic Cuff Blood Pressure Position [Right Arm] Sitting 02 Sat by Pulse Oximetry 87 L 92 L Oxygen Delivery Method Room Air - Lab Data Lab Results 04/11/20 13:40: WBC 7.7, RBC 3.46 L, Hgb 9.8 L, Hct 32.3 L, MCV 93.6, MCH 28.3, MCHC 30.2 L, RDW 14.2, Plt Count 303, MPV 7.9, Neut % (Auto) 74.5, Lymph % (Auto) 17.6, [place] % (Auto) 5.2, Eos % (Auto) 2.4, Baso % (Auto) 0.2, Neut # (Auto) 5.8, Lymph # (Auto) 1.4, [place] # (Auto) 0.4, Eos # (Auto) 0.2, Baso # (Auto) 0.0 04/11/20 13:40: Sodium 148 H, Potassium 5.3 H, Chloride 115 H, Carbon Dioxide 25, Anion Gap 13.3, BUN 51 H, Creatinine 2.40 H, Estimated Creat Clear 26, Estimated GFR 21 L, Est GFR ( Amer) 25 L, Glucose 184 H, Calcium 8.7, Total Bilirubin 0.4, AST 28, ALT 35, Alkaline Phosphatase 114, Troponin I < 0.01, Total Protein 7.6, Albumin 3.8, Globulin 3.8 H, Albumin/Globulin Ratio 1.0 L 04/11/20 13:40: NT-Pro-B Natriuret Pep 2430 H 04/11/20 13:40: SARS-CoV-2 IgG Ab (Rapid) Positive A, SARS-CoV-2 IgM Ab (Rapid) Negative 04/11/20 13:40: PT 11.1, INR 1.00, APTT 26.5 04/11/20 13:49: Specimen Source Right radial, O2 % Ra, ABG pH 7.33 L, ABG pCO2 41.2, ABG pO2 52.5 L, ABG HCO3 21.2 L, ABG Total CO2 22.5 L, ABG O2 Saturation 88 L, ABG Base Excess -4.7 L, Krishna Test Acceptable Result diagrams: 04/11/20 13:40 04/11/20 13:40 Orders (Tests/Meds): ED MEDICATIONS Discontinued Medications Generic Name Dose Route Start Last Admin Trade Name Freq PRN Reason Stop Dose Admin Dextrose 50 ml 04/11/20 15:48 Dextrose 50% 50ml Syringe (Crash Cart) IVP 04/11/20 15:49 ONCE ONE Insulin Human Regular 10 unit 04/11/20 15:48 Insulin Human Regular 100 Units/Ml 10ml Vial IVP 04/11/20 15:49 ONCE ONE ORDERS Category Date Time Status Troponin I Q3H Lab 04/11/20 16:45 Ordered Troponin I Q3H Lab 04/11/20 19:45 Ordered - Radiology Data #1 Image(s): Chest Image Reviewed: Yes I reviewed the patient's radiology results, Yes I reviewed the patient's radiology image, Yes I have reviewed radiologist's interpretation IMPRESSION: Mild CHF with right-sided pneumonia and small bilateral effusions - ECG Data Tracing #1 Normal ventric
[2020-04-11 13:54] LABS: Chloride 115 mmol/L (98-107); Potassium 5.3 mmoL/L (3.5-5.1); Sodium 148 mmol/L (136-145)
[2020-04-11 13:56] LABS: Alanine Aminotransferase 35 U/L (12-78); Aspartate Amino Transferase 28 U/L (14-36); Blood Urea Nitrogen 51 mg/dl (7-17); Creatinine Clearance Estimated 26 mL/min (50-200); Estimated Glomerular Filt Rate 21 ml/min (>60); GFR (African American) 25 ML/MIN (>60)
[2020-04-11 13:57] LABS: Albumin Level 3.8 g/dl (3.5-5.0); Alkaline Phosphatase 114 U/L (38-126); Anion Gap 13.3 mEq/L (5-15); Bilirubin,Total 0.4 mg/dl (0.2-1.3); Calcium 8.7 mg/dl (8.4-10.2); Carbon Dioxide 25 mmol/L (22.0-30.0); Globulin 3.8 g/dL (1.3-3.2); Glucose 184 mg/dl (74-100); Total Protein,Serum 7.6 g/dl (6.3-8.2)
[2020-04-11 14:06] LABS: NT Pro Brain Natriuretic Pep. 2430 pg/mL (0-125)
[2020-04-11 14:12] LABS: Troponin I < 0.01 ng/ml (0.00-0.034)
[2020-04-11 14:28] VITALS: BP 143/77; PULSE 64; RESP 18; O2SAT 92
[2020-04-11 14:30] LABS: Coronavirus 19 IgG Antibody Positive (Negative); Coronavirus 19 IgM Antibody Negative (Negative)
[2020-04-11 14:42] LABS: Basophils % 0.2 % (0.1-2.0); Eosinophils # 0.2 K/mm3 (0.0-0.4); Eosinophils % 2.4 % (0.1-12.0); Hematocrit 32.3 % (37.0-47.0); Hemoglobin 9.8 g/dL (12.2-16.2); Lymphocytes # 1.4 K/mm3 (0.7-4.5); Lymphocytes % 17.6 % (10-50); Mean Corpuscular HGB Conc 30.2 g/dL (31.8-35.4); Mean Corpuscular Hemoglobin 28.3 pg (27.0-31.2); Mean Corpuscular Volume 93.6 fl (81-99); Mean Platelet Volume 7.9 fl (7.4-10.4); Monocytes # 0.4 K/mm3 (0.1-1.0); Monocytes % 5.2 % (1.7-9.3); Neutrophils # 5.8 K/mm3 (1.8-7.8); Neutrophils % 74.5 % (37.0-80.0); Platelet Count 303 K/mm3 (142-424); Red Blood Count 3.46 M/mm3 (4.20-5.40); Red Cell Distribution Width 14.2 % (11.5-17.5); White Blood Count 7.7 K/mm3 (4.8-10.8)
[2020-04-11 15:16] LABS: Activated Partial Thrombo Time 26.5 seconds (23.6-34.0); Prothrombin Time 11.1 seconds (9.4-11.8)
[2020-04-11 15:35] LABS: ABG Base Excess -4.7 mmol/L (-2.4-2.3); ABG HCO3 21.2 mmhg (22.0-26.0); ABG Oxygen Saturation 88 % (90-100); ABG PCO2 41.2 mmhg (35.0-45.0); ABG PH 7.33 mmol/L (7.35-7.45); ABG PO2 52.5 mmhg (80-100); ABG TCO2 22.5 mmhg (23-27)
[2020-04-11 15:36] LABS: Allen's Test Acceptable; Oxygen RA %; Source Right Radial
[2020-04-11 16:20] VITALS: BP 135/77; PULSE 70; RESP 20; TEMP 36.6; O2SAT 92
== END 2020-04-11 16:20 | disposition home or self-care (01) ==
PROVIDERS: Emergency Provider Emergency Medicine; PCP Family Medicine
DX: I50.42 Chronic combined systolic (congestive) and diastolic (congestive) heart failure (principal); J18.9 Pneumonia, unspecified organism; E87.5 Hyperkalemia; E87.0 Hyperosmolality and hypernatremia; I25.10 Atherosclerotic heart disease of native coronary artery without angina pectoris; Z01.84 Encounter for antibody response examination; F33.1 Major depressive disorder, recurrent, moderate; I10 Essential (primary) hypertension; E11.9 Type 2 diabetes mellitus without complications; Z79.4 Long term (current) use of insulin; Z88.2 Allergy status to sulfonamides; Z79.899 Other long term (current) drug therapy
CPT/HCPCS: 71045; 80053; 82803; 83880; 84484; 85025; 85610; 85730; 86328; 93005; 96374; 96375; 99283

== ENCOUNTER 2020-04-15 09:23 | Observation (INO) | payer MEDICARE, MEDICAID, SELFPAY ==
[2020-04-15] VITALS (16 sets, daily range): BP systolic 101–177; BP diastolic 37–80; PULSE 59–72; RESP 20–21; TEMP 36.5–36.8; O2SAT 88–99; BMI 51.7; BMI 50.1
--- NOTE | 2020-04-15 09:34 | XR_ITS ---
PROCEDURE: XR CHEST 2V CLINICAL HISTORY: soa Shortness of air, heart disease COMPARISON: CT CTAC CTA-CHEST from 11/10/2012 DX XR CHEST 2V from 04/30/2019 CR XR CHEST 2V from 03/31/2020 CR XR CHEST PORTABLE from 04/11/2020 FINDINGS: There is cardiomegaly with pulmonary venous congestion consistent with CHF. Increased density is present in the left perihilar region and may be due to pneumonia. Suggest following till clear. There are small bilateral pleural effusions. No acute bony abnormalities. IMPRESSION: CHF with left perihilar pneumonia or edema with small bilateral effusions Dictated by: Krishna Sepulveda MD 04/15/2020 10:26 Krishna Sepulveda MD in [place] 04/15/2020 10:26
--- NOTE | 2020-04-15 09:39 | ECG_ITS ---
APPROVED REPORT Exam: Resting ECG HR:59 bpm ECG Measurements Heart Rate 59 AXES MA 200 P 49 QRSd 90 QRS 50 QT 482 T 38 QTc 477 Conclusion Sinus bradycardia with premature atrial complexes Low voltage QRS Incomplete RBBB Borderline ECG Electronically signed by : Bhanu Conway, 04/15/2020 18:15:19
--- NOTE | 2020-04-15 09:45 | HMH.EDGENADL ---
ED Disposition Clinical Impression: Hyperkalemia, Acute kidney injury Congestive heart failure Qualifiers: Heart failure type: diastolic Heart failure chronicity: acute on chronic Qualified Code(s): I50.33 - Acute on chronic diastolic (congestive) heart failure Disposition: Admitted as Observation Condition on Discharge: Fair - Critical Care Critical Care Time: No Attestation: On , the high probability of a clinically significant, sudden or life threatening deterioration of the following system(s) required my full and direct attention, intervention and personal management. The time I documented below is in addition to time spent performing reported procedures but includes the following listed in this critical care notation. Medical Decision Making - Medical Records Medical records reviewed: Yes: I reviewed the patient's medical records. MR Comment: Discharge summary from recent admission and emergency department record from recent visit reviewed. - [place]bert Inquiry Pt receiving controlled substance: No Vital Signs: 04/15/20 09:24 04/15/20 09:27 04/15/20 09:34 Temperature 97.7 F Temperature Source Oral Pulse Rate [Left Radial] 63 66 Respiratory Rate 21 Blood Pressure [Right Arm] 164/77 H 139/63 Blood Pressure Mean [Right Arm] 106 88 Blood Pressure Source [Right Arm] Automatic Cuff Automatic Cuff Blood Pressure Position [Right Arm] Sitting Sitting 02 Sat by Pulse Oximetry 96 88 L 96 Oxygen Delivery Method Nasal Cannula Room Air Nasal Cannula Oxygen Flow Rate (LPM) 2 2 04/15/20 10:17 04/15/20 10:45 04/15/20 11:19 Temperature Temperature Source Pulse Rate [Left Radial] 62 59 L 61 Respiratory Rate Blood Pressure [Right Arm] 161/63 H 153/63 H 174/76 H Blood Pressure Mean [Right Arm] 95 93 108 Blood Pressure Source [Right Arm] Automatic Cuff Automatic Cuff Automatic Cuff Blood Pressure Position [Right Arm] Sitting Sitting Sitting 02 Sat by Pulse Oximetry 97 95 97 Oxygen Delivery Method Nasal Cannula Nasal Cannula Nasal Cannula Oxygen Flow Rate (LPM) 2 2 2 04/15/20 12:29 Temperature Temperature Source Pulse Rate [Left Radial] 62 Respiratory Rate Blood Pressure [Right Arm] 144/78 H Blood Pressure Mean [Right Arm] 100 Blood Pressure Source [Right Arm] Automatic Cuff Blood Pressure Position [Right Arm] Sitting 02 Sat by Pulse Oximetry 96 Oxygen Delivery Method Nasal Cannula Oxygen Flow Rate (LPM) 2 - Lab Data Lab Results 04/15/20 09:45: WBC 7.8, RBC 3.15 L, Hgb 9.1 L, Hct 29.9 L, MCV 95.0, MCH 29.0, MCHC 30.5 L, RDW 14.4, Plt Count 242, MPV 8.8, Neut % (Auto) 77.2, Lymph % (Auto) 15.4, [place] % (Auto) 4.7, Eos % (Auto) 2.5, Baso % (Auto) 0.2, Neut # (Auto) 6.0, Lymph # (Auto) 1.2, [place] # (Auto) 0.4, Eos # (Auto) 0.2, Baso # (Auto) 0.0 04/15/20 09:45: Sodium 146 H, Potassium 6.0 H, Chloride 116 H, Carbon Dioxide 24, Anion Gap 12.0, BUN 57 H, Creatinine 2.50 H, Estimated Creat Clear 25, Estimated GFR 20 L, Est GFR ( Amer) 24 L, Glucose 257 H, Calcium 8.6, Total Bilirubin 0.5, AST 22, ALT 22, Alkaline Phosphatase 106, Troponin I < 0.01, NT-Pro-B Natriuret Pep 3250 H, Total Protein 7.2, Albumin 3.4 L, Globulin 3.8 H, Albumin/Globulin Ratio 0.9 L Result diagrams: 04/15/20 09:45 04/15/20 09:45 Orders (Tests/Meds): ED MEDICATIONS Generic Name Dose Route Start Last Admin Trade Name Freq PRN Reason Stop Dose Admin Acetaminophen 650 mg 04/15/20 12:14 Acetaminophen 325mg Tab PO 05/15/20 12:13 Q4HP PRN As Needed for Fever or Pain Amlodipine Besylate 5 mg 04/16/20 09:00 Amlodipine 5mg Tablet PO 05/16/20 08:59 DAILY [facility] Aspirin 81 mg 04/16/20 09:00 Aspirin Ec 81mg Tablet PO 05/16/20 08:59 DAILY [facility] Atorvastatin Calcium 40 mg 04/15/20 21:00 Atorvastatin 40mg Tablet PO 05/15/20 20:59 HS [facility] Carvedilol 25 mg 04/15/20 21:00 Carvedilol 25mg Tablet PO 05/15/20 20:59 BID [facility] Clopidogrel Bisulfate 75 mg 04/16/20 09:
[2020-04-15 10:03] LABS: Basophils % 0.2 % (0.1-2.0); Eosinophils # 0.2 K/mm3 (0.0-0.4); Eosinophils % 2.5 % (0.1-12.0); Hematocrit 29.9 % (37.0-47.0); Hemoglobin 9.1 g/dL (12.2-16.2); Lymphocytes # 1.2 K/mm3 (0.7-4.5); Lymphocytes % 15.4 % (10-50); Mean Corpuscular HGB Conc 30.5 g/dL (31.8-35.4); Mean Platelet Volume 8.8 fl (7.4-10.4); Monocytes # 0.4 K/mm3 (0.1-1.0); Monocytes % 4.7 % (1.7-9.3); Neutrophils % 77.2 % (37.0-80.0); Platelet Count 242 K/mm3 (142-424); Red Blood Count 3.15 M/mm3 (4.20-5.40); Red Cell Distribution Width 14.4 % (11.5-17.5); White Blood Count 7.8 K/mm3 (4.8-10.8)
--- NOTE | 2020-04-15 10:08 | PC.NURSE ---
pt to rad
--- NOTE | 2020-04-15 10:15 | PC.NURSE ---
Pt returned from rad.
[2020-04-15 11:11] LABS: Alanine Aminotransferase 22 U/L (12-78); Albumin Level 3.4 g/dl (3.5-5.0); Albumin/Globulin Ratio 0.9 (1.1-1.8); Alkaline Phosphatase 106 U/L (38-126); Aspartate Amino Transferase 22 U/L (14-36); Bilirubin,Total 0.5 mg/dl (0.2-1.3); Blood Urea Nitrogen 57 mg/dl (7-17); Calcium 8.6 mg/dl (8.4-10.2); Carbon Dioxide 24 mmol/L (22.0-30.0); Chloride 116 mmol/L (98-107); Creatinine Clearance Estimated 25 mL/min (50-200); Estimated Glomerular Filt Rate 20 ml/min (>60); GFR (African American) 24 ML/MIN (>60); Globulin 3.8 g/dL (1.3-3.2); Glucose 257 mg/dl (74-100); Sodium 146 mmol/L (136-145); Total Protein,Serum 7.2 g/dl (6.3-8.2)
--- NOTE | 2020-04-15 11:15 | PC.NURSE ---
DR BARRERA SPEAKING WITH DR BUSTAMANTE REGARDING PT CARE
[2020-04-15 11:23] LABS: NT Pro Brain Natriuretic Pep. 3250 pg/mL (0-125)
[2020-04-15 11:24] LABS: Troponin I < 0.01 ng/ml (0.00-0.034)
--- NOTE | 2020-04-15 11:53 | PC.NURSE ---
Pt urinated 500ml at this time.
--- NOTE | 2020-04-15 12:37 | PC.NURSE ---
Report called to Emmy East RN. Waiting covid antibody test results before going to the floor
--- NOTE | 2020-04-15 12:54 | HMH.PHAVTE ---
[facility] Pharmacy VTE Monitoring - Patient Demographics Admission date: 04/15/20 Report Date: 04/15/20 Time: 12:54 Allergies/Adverse Reactions: Patient Allergies Sulfa (Sulfonamide Antibiotics) [SULFA (SULFONAMIDE ANTIBIOTICS)] Allergy (Intermediate, Verified 04/11/20 13:34) I-RASH Height: 1.73 m Weight: 154.221 kg Patient Problems: Current Active Problems Acute kidney injury (Acute) Congestive heart failure (Acute) Hyperkalemia (Acute) - VTE Risk Labs: VTE Related Lab Results Hgb 9.1 g/dL (12.2-16.2) L 04/15/20 09:45 Hct 29.9 % (37.0-47.0) L 04/15/20 09:45 Plt Count 242 K/mm3 (142-424) 04/15/20 09:45 BUN 57 mg/dl (7-17) H 04/15/20 09:45 Creatinine 2.50 mg/dl (0.52-1.04) H 04/15/20 09:45 Estimated Creat Clear 25 mL/min (50-200) 04/15/20 09:45 - Prophylaxis VTE Prophylaxis Ordered?: Yes Types of VTE Prophylaxis: TEDS Knee High Location of Applied Device: Bilateral Lower Extremeties
[2020-04-15 13:45] LABS: Coronavirus 19 IgG Antibody Negative (Negative); Coronavirus 19 IgM Antibody Negative (Negative)
--- NOTE | 2020-04-15 13:48 | PC.NURSE ---
pt sitting up eating at this time.
--- NOTE | 2020-04-15 15:31 | HMH.PHAINT ---
MEDICATION RECONCILIATION COMPLETED ON PATIENT USING EXTERNAL FILL HISTORY FROM PHARMACY, DISCHARGE SUMMARY FROM PREVIOUS ADMISSION, AND PATIENT'S OWN RX BOTTLES. -AISHA BREAUXD
[2020-04-15 16:33] LABS: POC Glucose,Bedside 231 (70-110)
--- NOTE | 2020-04-15 16:50 | HMH.HP ---
*Admission Date: 04/15/20 *Chief complaint: Shortness of breath *History of present illness: 55-year-old female with coronary artery disease, diastolic heart failure, chronic kidney disease, with recent hospitalization for exacerbation of diastolic heart failure and worsening renal disease presented to the emergency department with dyspnea on exertion for the second time this week. Patient had been seen earlier in the week through the ER and had been diagnosed with pneumonia. Patient denies any symptoms of an infectious disease process. She returned today when dyspnea on exertion had not improved as the week had progressed. She reports no chest pain but does believe her lower legs are more swollen than they were earlier in the week. With light ambulation she became dyspneic. Her dyspnea could be relieved with brief episodes of application of her home CPAP. As long as she was stationary she was asymptomatic. She does not have home oxygen. Work-up in the emergency department revealed an O2 sat of 88% at rest on room air. Patient was hyperkalemic. Chest x-ray supported acute congestive heart failure. Patient was admitted after being given a dose of intravenous Lasix 80 mg which she has had excellent response to so far. Patient is currently resting in her room with supplemental oxygen via the nasal cannula. She has been able to ambulate to the bathroom twice with oxygen and notes improvement in her shortness of breath with exertion. Patient was taken off all diuretics at her last hospitalization due to her kidney disease [facility] History I have reviewed the patient's past medical history: Yes Medical History: Reports:: Congestive Heart Failure, Coronary Artery Disease, Cerebrovascular Accident, Depression, Diabetes Mellitus Type 2, Heart Murmur, Hyperlipidemia, Hypertension Denies:: Cancer, Internal Pacemaker, MRSA, Seizures *Have you ever received a pneumonia vaccine?: Yes *Have you received a flu vaccine this season?: Yes Other Medical History: Reports: Sinus Problems, Other Other Surgeries: Yes: Cardiac Catheterization, Cholecystectomy, Coronary Stent, Sinus Surgery, Tubal Ligation, Other (gastric sleeve). No: Pacemaker Amputation: No Fractures: No - *Social History Smoking Status: Never smoker Alcohol Intake: never Alcohol Intake Frequency:: other Substance Use Type: denies use *Occupational Status:: disabled Housing: house Household Members: children *Travel in the last 8 weeks: None - Psychiatric History Pschychiatric History:: Reports:: Depression Family Hx:: Coronary Artery Disease, Diabetes, Heart Attack, Hyperlipidemia, Hypertension, Kidney Disease, Stroke, Substance abuse, Alcoholism Review of Systems - Constitutional Denies anorexia, Denies body ache(s), Denies chills, Denies malaise - *Cardiovascular Reports shortness of breath with activity, Reports leg swelling, Denies chest pain, Denies chest pain at rest, Denies leg pain with activity, Denies excessive sweating, Denies irregular heart rhythm, Denies lightheadedness, Denies shortness of breath when lying down, Denies rapid, pounding, or irregular heartbeat - *Respiratory Reports shortness of breath with activity - *Gastrointestinal Denies abdominal pain, Denies belching, Denies bloating - *Musculoskeletal Denies back pain, Denies deformity Meds Home Medications Medication Instructions Recorded Confirmed Type Insulin Lispro [HumaLOG 100 30 unit SQ TIDWM 10/05/17 04/15/20 History units/mL 3mL vial (SSI)] PARoxetine HCl [Paxil] 20 mg PO HS 10/05/17 04/15/20 History Aspirin [Aspirin 81mg EC Tab] 81 mg PO DAILY 06/23/18 04/15/20 History Atorvastatin Calcium [Lipitor 40mg 40 mg PO HS 06/23/18 04/15/20 History Tab] Cholecalciferol (Vitamin D3) 50,000 unit PO WEEKLY 06/23/18 04/15/20 History [Vitamin D3 50,000 unit Cap] Cyanocobalamin (Vitamin B-12) 1,000 mcg PO DAILY 06/23/18 04/15/20 History [Vitamin B-12 1000mcg Tablet] insulin glargine 100
[2020-04-15 21:25] LABS: POC Glucose,Bedside 217 (70-110)
[2020-04-16] VITALS (9 sets, daily range): BP systolic 143–177; BP diastolic 63–86; PULSE 50–80; RESP 19–20; TEMP 36.5–36.9; O2SAT 87–97; BMI 51.5
--- NOTE | 2020-04-16 03:36 | PC.NURSE ---
Pt A&OX4. lungs diminished throughout and expiratory wheezes not. while pt awake 2L @ [place] low 90s. Pt sleeping with own CPAP no supplemental 02. 02 sat 89%. Pt becomes SOA on exertion activities but recop quickly. BS active in all quads. pt ambulates independently to BR
[2020-04-16 05:33] LABS: POC Glucose,Bedside 224 (70-110)
[2020-04-16 07:19] LABS: Basophils % 0.4 % (0.1-2.0); Eosinophils # 0.2 K/mm3 (0.0-0.4); Eosinophils % 3.3 % (0.1-12.0); Hematocrit 28.5 % (37.0-47.0); Hemoglobin 8.8 g/dL (12.2-16.2); Lymphocytes # 1.3 K/mm3 (0.7-4.5); Lymphocytes % 19.6 % (10-50); Mean Corpuscular HGB Conc 30.8 g/dL (31.8-35.4); Mean Corpuscular Hemoglobin 28.6 pg (27.0-31.2); Mean Corpuscular Volume 92.9 fl (81-99); Mean Platelet Volume 7.6 fl (7.4-10.4); Monocytes # 0.3 K/mm3 (0.1-1.0); Monocytes % 4.9 % (1.7-9.3); Neutrophils # 4.7 K/mm3 (1.8-7.8); Neutrophils % 71.7 % (37.0-80.0); Platelet Count 226 K/mm3 (142-424); Red Blood Count 3.06 M/mm3 (4.20-5.40); Red Cell Distribution Width 14.4 % (11.5-17.5); White Blood Count 6.5 K/mm3 (4.8-10.8)
[2020-04-16 07:22] LABS: Chloride 113 mmol/L (98-107)
[2020-04-16 07:23] LABS: Potassium 4.5 mmoL/L (3.5-5.1); Sodium 147 mmol/L (136-145)
[2020-04-16 07:25] LABS: Iron 50 ug/dL (37-170); Lactate Dehydrogenase 187 U/L (313-618)
[2020-04-16 07:26] LABS: Anion Gap 10.5 mEq/L (5-15); Blood Urea Nitrogen 54 mg/dl (7-17); Calcium 8.6 mg/dl (8.4-10.2); Carbon Dioxide 28 mmol/L (22.0-30.0); Creatinine Clearance Estimated 24 mL/min (50-200); Estimated Glomerular Filt Rate 19 ml/min (>60); GFR (African American) 23 ML/MIN (>60); Glucose 194 mg/dl (74-100)
[2020-04-16 07:35] LABS: Total Iron Binding Capacity 431 ug/dL (265-497)
--- NOTE | 2020-04-16 07:37 | HMH.ACPN2 ---
Internal Medicine - PN: Subj *Date: 04/16/20 *Time: 07:37 Interval history: Patient ambulated to the bathroom at least twice since yesterday evening and reports dyspnea on exertion with both times. The first time she ambulated without oxygen and became significantly short of breath upon returning to her chair. Second time she was able to wear her supplemental oxygen and reports less dyspnea although each time with ambulation it took her 3 to 5 minutes to recover. She denies chest pain. Exam Vital signs and Labs for Last 24 Hours: Temp Pulse Resp BP Pulse Ox 97.7 F 74 20 145/63 H 87 L 04/16/20 04:00 04/16/20 04:00 04/16/20 04:00 04/16/20 04:00 04/16/20 04:00 Laboratory Results - last 24 hr 04/15/20 09:45: WBC 7.8, RBC 3.15 L, Hgb 9.1 L, Hct 29.9 L, MCV 95.0, MCH 29.0, MCHC 30.5 L, RDW 14.4, Plt Count 242, MPV 8.8, Neut % (Auto) 77.2, Lymph % (Auto) 15.4, [place] % (Auto) 4.7, Eos % (Auto) 2.5, Baso % (Auto) 0.2, Neut # (Auto) 6.0, Lymph # (Auto) 1.2, [place] # (Auto) 0.4, Eos # (Auto) 0.2, Baso # (Auto) 0.0 04/15/20 09:45: Sodium 146 H, Potassium 6.0 H, Chloride 116 H, Carbon Dioxide 24, Anion Gap 12.0, BUN 57 H, Creatinine 2.50 H, Estimated Creat Clear 25, Estimated GFR 20 L, Est GFR ( Amer) 24 L, Glucose 257 H, Calcium 8.6, Total Bilirubin 0.5, AST 22, ALT 22, Alkaline Phosphatase 106, Troponin I < 0.01, NT-Pro-B Natriuret Pep 3250 H, Total Protein 7.2, Albumin 3.4 L, Globulin 3.8 H, Albumin/Globulin Ratio 0.9 L 04/15/20 13:05: SARS-CoV-2 IgG Ab (Rapid) Negative, SARS-CoV-2 IgM Ab (Rapid) Negative 04/15/20 16:20: POC Glucose 231 H 04/15/20 20:24: POC Glucose 217 H 04/16/20 05:06: POC Glucose 224 H 04/16/20 07:04: WBC 6.5, RBC 3.06 L, Hgb 8.8 L, Hct 28.5 L, MCV 92.9, MCH 28.6, MCHC 30.8 L, RDW 14.4, Plt Count 226, MPV 7.6, Neut % (Auto) 71.7, Lymph % (Auto) 19.6, [place] % (Auto) 4.9, Eos % (Auto) 3.3, Baso % (Auto) 0.4, Neut # (Auto) 4.7, Lymph # (Auto) 1.3, [place] # (Auto) 0.3, Eos # (Auto) 0.2, Baso # (Auto) 0.0 04/16/20 07:04: Iron 50, Lactate Dehydrogenase 187 L 04/16/20 07:04: Sodium 147 H, Potassium 4.5 D, Chloride 113 H, Carbon Dioxide 28, Anion Gap 10.5, BUN 54 H, Creatinine 2.60 H, Estimated Creat Clear 24, Estimated GFR 19 L*, Est GFR ( Amer) 23 L, Glucose 194 H D, Calcium 8.6 I & O for Last 24 hours: Intake & Output 04/13/20 04/14/20 04/15/20 04/16/20 11:59 11:59 11:59 11:59 Intake Total 240 / 240 Output Total 3000 / 3000 Balance -2760 / -2760 Weight 330 lb 340 lb 2.772 oz - Constitutional no acute distress - *Routine Respiratory Exam Comments: Breath sounds are significantly diminished in the bases without rales - *Routine Cardiovascular Exam Present: RRR, Normal S1, Normal S2 - *Routine Extremities Exam Present: edema. Absent: cyanosis, clubbing Assessment and Plan (1) Acute on chronic diastolic CHF (congestive heart failure) Status: Acute Category: Medical Code(s): I50.33 - Acute on chronic diastolic (congestive) heart failure (2) Hyperkalemia Status: Resolved Category: Medical Code(s): E87.5 - Hyperkalemia (3) Diabetes mellitus with hyperglycemia Status: Acute Category: Medical Code(s): E11.65 - Type 2 diabetes mellitus with hyperglycemia (4) Dyspnea on exertion Status: Acute Category: Medical Code(s): R06.00 - Dyspnea, unspecified (5) Hypernatremia Status: Acute Category: Medical Code(s): E87.0 - Hyperosmolality and hypernatremia (6) Hypertensive heart disease Status: Acute Category: Medical Code(s): I11.9 - Hypertensive heart disease without heart failure (7) CAD (coronary artery disease) Status: Chronic Qualifiers: Coronary Disease-Associated Artery/Lesion type: [place] artery [place] vs. transplanted heart: [place] heart Associated angina: without angina Qualified Code(s): I25.10 - Atherosclerotic heart disease of [place] coronary artery without angina pectoris Category: Medical Code(s): I25.10 - A
[2020-04-16 08:02] LABS: Ferritin 44.7 ng/ml (11.1-264)
[2020-04-16 08:15] LABS: Vitamin B12 974 pg/mL (239-931)
[2020-04-16 11:39] LABS: POC Glucose,Bedside 234 (70-110)
[2020-04-16 15:48] LABS: POC Glucose,Bedside 258 (70-110)
--- NOTE | 2020-04-16 19:39 | INFXCTL.NOTE ---
Pt alert and oriented x 4. 2 L NC. No complaints this shift. Did receive IV lasix 40 mg x [address] Courtney. CB in reach. Up to chair at this time. Did take shower this shift.
[2020-04-16 20:21] LABS: POC Glucose,Bedside 175 (70-110)
[2020-04-17] VITALS: PULSE 60
[2020-04-17 03:54] VITALS: BP 152/62; PULSE 70; RESP 16; TEMP 36.6; O2SAT 92
[2020-04-17 04:00] VITALS: PULSE 60
--- NOTE | 2020-04-17 04:22 | PC.NURSE ---
Pt A&OX4. lungs diminished throughout and expiratory wheezes note. Pt sleeping with own CPAP no supplemental 02. 02 sat 92%. . BS active in all quads. pt ambulates independently to BR
[2020-04-17 05:07] VITALS: BMI 50.8
[2020-04-17 05:29] LABS: POC Glucose,Bedside 193 (70-110)
[2020-04-17 08:00] VITALS: BP 183/84; PULSE 70; PULSE 76; RESP 18; TEMP 36.8; O2SAT 92
--- NOTE | 2020-04-17 08:18 | HMH.DCSUM ---
General - General Admission date:: 04/15/20 Discharge date: 04/17/20 HPI HPI: 55-year-old female with coronary artery disease, diastolic heart failure, chronic kidney disease, with recent hospitalization for exacerbation of diastolic heart failure and worsening renal disease presented to the emergency department with dyspnea on exertion for the second time this week. Patient had been seen earlier in the week through the ER and had been diagnosed with pneumonia. Patient denies any symptoms of an infectious disease process. She returned today when dyspnea on exertion had not improved as the week had progressed. She reports no chest pain but does believe her lower legs are more swollen than they were earlier in the week. With light ambulation she became dyspneic. Her dyspnea could be relieved with brief episodes of application of her home CPAP. As long as she was stationary she was asymptomatic. She does not have home oxygen. Work-up in the emergency department revealed an O2 sat of 88% at rest on room air. Patient was hyperkalemic. Chest x-ray supported acute congestive heart failure. Patient was admitted after being given a dose of intravenous Lasix 80 mg which she has had excellent response to so far. Patient is currently resting in her room with supplemental oxygen via the nasal cannula. She has been able to ambulate to the bathroom twice with oxygen and notes improvement in her shortness of breath with exertion. Patient was taken off all diuretics at her last hospitalization due to her kidney disease Hospital Course Hospital Course: Patient was admitted and given intravenous Lasix with monitoring of urine output, daily I's and O's, weight. Weight did trend down 5 pounds during hospitalization. Patient was mildly hypoxic on room air on presentation to the ER. Spot room air O2 sats performed during hospitalization were as low as 87 and 89 % the day prior to discharge. With patient's diagnosis of congestive heart failure I do believe this qualifies the patient for home oxygen. After 2 days of diuresis along with supplemental oxygen support patient noted improvement in breathlessness. She was discharged home. Patient will follow-up in the office in 48 hours. Prescription for furosemide was sent to patient's pharmacy. Objective Vital signs: Temp Pulse Resp BP Pulse Ox 98.2 F 76 18 183/84 H 92 L 04/17/20 08:00 04/17/20 08:00 04/17/20 08:00 04/17/20 08:00 04/17/20 08:00 no acute distress - *Routine Respiratory Exam Present: CTA bilaterally - *Routine Cardiovascular Exam Present: RRR Results Labs on day of discharge: Labs from last 24 hours 04/17/20 04/16/20 04/16/20 05:04 20:12 15:29 POC Glucose 193 H 175 H 258 H Vitamin B12 04/16/20 04/16/20 11:28 07:04 POC Glucose 234 H Vitamin B12 974 H DS: Diagnosis - Discharge Diagnosis (1) Acute on chronic diastolic CHF (congestive heart failure) Status: Resolved (2) Hyperkalemia Status: Resolved (3) Diabetes mellitus with hyperglycemia Status: Acute (4) Dyspnea on exertion Status: Resolved (5) Hypernatremia Status: Acute (6) Hypertensive heart disease Status: Acute (7) CAD (coronary artery disease) Status: Chronic (8) HTN (hypertension) Status: Chronic (9) History of CVA (cerebrovascular accident) Status: Chronic (10) Anemia in chronic kidney disease Status: Chronic (11) Chronic kidney disease, stage IV (severe) Status: Chronic Discharge Plan - Patient Discharge Instructions Patient Instructions: Congestive Heart Failure (Alternative Therapy), Heart Failure, Hyperkalemia - Follow up Plan Follow up with: Domingo Courtney MD [Primary Care Provider] - 04/19/20 1:30 pm Disposition: Home, Self-Fpc Medications: Home Medications Medication Instructions Recorded Confirmed Type Insulin Lispro [HumaLOG 100 30 unit SQ TIDWM 10/05/17 04/15/20 Hi
[2020-04-17 09:57] VITALS: O2SAT 87
[2020-04-17 11:34] LABS: POC Glucose,Bedside 262 (70-110)
[2020-04-18 07:12] LABS: Peripheral Smear Review Scanned Result
== END 2020-04-17 12:00 | disposition home or self-care (01) ==
LOC: ER 11:24 → 2ND 11:30
PROVIDERS: Admitting Provider Family Medicine; Emergency Provider Emergency Medicine; PCP Family Medicine; Visit Provider Family Medicine
DX: I13.0 Hypertensive heart and chronic kidney disease with heart failure and stage 1 through stage 4 chronic kidney disease, or unspecified chronic kidney disease (principal); I50.33 Acute on chronic diastolic (congestive) heart failure; N18.4 Chronic kidney disease, stage 4 (severe); E11.22 Type 2 diabetes mellitus with diabetic chronic kidney disease; E78.5 Hyperlipidemia, unspecified; E87.5 Hyperkalemia; Z79.4 Long term (current) use of insulin; Z79.02 Long term (current) use of antithrombotics/antiplatelets; Z88.2 Allergy status to sulfonamides; Z79.82 Long term (current) use of aspirin; Z95.5 Presence of coronary angioplasty implant and graft; Z98.84 Bariatric surgery status; Z68.43 Body mass index [BMI] 50.0-59.9, adult
CPT/HCPCS: 71046; 80048; 80053; 82607; 82728; 82962; 83540; 83550; 83615; 83880; 84484; 85025; 86328; 93005; 94761; 96374; 99284; G0378

== ENCOUNTER 2020-05-07 19:28 | Inpatient (IN) | payer MEDICARE, MEDICAID, SELFPAY ==
[2020-05-07] VITALS (13 sets, daily range): BP systolic 149–200; BP diastolic 57–89; PULSE 62–72; RESP 16–87; TEMP 36.4–36.6; O2SAT 94–100; BMI 51.7; BMI 53.7
--- NOTE | 2020-05-07 19:45 | XR_ITS ---
PROCEDURE: XR CHEST 2V Referring Doctor: Calvin Marquez Patient Age:55Y CLINICAL HISTORY: soa dyspnea CHF COMPARISON: CT CTAC CTA-CHEST from 11/10/2012 CR XR CHEST PORTABLE from 05/08/2020 FINDINGS: PA and lateral chest performed today and compared to 04/15/2020 CXR Compared to that study there is additional vascular congestion and CHF compared to April 15. Additional cephalization on this today's upright film, with suggestion of of minimal perihilar infiltrate. Also suspect some additional patchy areas of infiltrate bilaterally-particularly at the right suprahilar region right upper lobe, as well as at the lower lobes bilaterally.. The left hemidiaphragm is further obscured due to the left pleural effusion and probable minimal airspace disease at left base. Suggestion minimal atelectasis/scarring and possible minor airspace disease at the medial aspect RLL-although now note similar appearance was seen here previously on April 15 CXR . Cardiomegaly. Suspect scant right pleural effusion as well as more evident left pleural effusion. Trace right CP angle IMPRESSION: Prominent cardiomegaly. Additional vascular congestion and CHF versus April 15 but Left pleural effusion with likely scant right pleural effusion blunting CP angles Question/suggestion subtle patchy infiltrates developing bilaterally will require ongoing follow-up: . Suggestion vague infiltrate right suprahilar region/RUL . Suspect left lower lobe airspace disease along with left pleural effusion, combine to further obscure left hemidiaphragm . Minimal scarring/atelectasis with possible small patchy infiltrate medial right base noted-but this area more likely stable since April 15 Dictated by: Anupam Kaba MD 05/08/2020 13:31 Anupam Kaba MD in [place] 05/08/2020 13:31
[2020-05-07 19:54] LABS: VBG Base Excess -3.9 mmol/L (-2.4-2.3); VBG HCO3 24.5 mmol/L (23-30); VBG Oxygen Saturation 93.3 % (50-70); VBG PO2 79.6 mmol/L (28-40); VBG Total CO2 26.6 mmol/L (23-27)
--- NOTE | 2020-05-07 19:54 | ECG_ITS ---
APPROVED REPORT Exam: Resting ECG HR:66 bpm ECG Measurements Heart Rate 66 AXES RI 168 P -4 QRSd 86 QRS 8 QT 420 T 55 QTc 440 Conclusion Normal sinus rhythm Normal ECG Electronically signed by : Domingo Pineda, 05/09/2020 07:24:19
[2020-05-07 19:56] LABS: VBG PH 7.18 mmol/L (7.31-7.41)
--- NOTE | 2020-05-07 20:00 | HMH.EDGENADL ---
ED Disposition Clinical Impression: Acute on chronic respiratory failure with hypoxia, Hyperkalemia, Hypernatremia, Poorly controlled diabetes mellitus, Anemia of chronic disease CHF exacerbation Qualifiers: Heart failure type: unspecified Qualified Code(s): I50.9 - Heart failure, unspecified Chronic kidney disease Qualifiers: Chronic kidney disease stage: stage 4 (severe) Qualified Code(s): N18.4 - Chronic kidney disease, stage 4 (severe) Disposition: Admitted As Inpatient Condition on Discharge: Fair Referrals: Domingo Courtney MD [Primary Care Provider] - - Critical Care Critical Care Time: Yes Attestation: On 05/07/20, the high probability of a clinically significant, sudden or life threatening deterioration of the following system(s) required my full and direct attention, intervention and personal management. The time I documented below is in addition to time spent performing reported procedures but includes the following listed in this critical care notation. Total Critical Care Time: 30 Vital system(s) involved:: Respiratory Failure My critical care processes included: Assessment & monitoring of V/S, Initial and Re-exams, Data Review/Interpretation, Coordinating Care Medical Decision Making - Medical Records Medical records reviewed: Yes: I reviewed the patient's medical records. - Elbert Inquiry Pt receiving controlled substance: No Vital Signs: 05/07/20 19:29 05/07/20 19:33 05/07/20 19:59 Temperature 97.9 F Temperature Source Oral Pulse Rate [Right] 72 71 67 Respiratory Rate 87 H 24 Blood Pressure [Right Arm] 200/89 H 200/89 H 171/72 H Blood Pressure Mean [Right Arm] 126 126 105 Blood Pressure Source [Right Arm] Automatic Cuff Automatic Cuff Automatic Cuff Blood Pressure Position [Right Arm] Supine Supine Supine 02 Sat by Pulse Oximetry 94 L 100 Oxygen Delivery Method Nasal Cannula Oxygen Flow Rate (LPM) 4 - Lab Data Lab results reviewed: Yes: I reviewed the patient's lab results. Lab Results 05/07/20 19:35: WBC 7.7, RBC 3.29 L, Hgb 9.1 L, Hct 31.2 L, MCV 94.9, MCH 27.6, MCHC 29.0 L, RDW 14.6, Plt Count 223, MPV 8.8, Neut % (Auto) 75.1, Lymph % (Auto) 16.9, [place] % (Auto) 5.7, Eos % (Auto) 1.9, Baso % (Auto) 0.4, Neut # (Auto) 5.8, Lymph # (Auto) 1.3, [place] # (Auto) 0.4, Eos # (Auto) 0.2, Baso # (Auto) 0.0 05/07/20 19:35: Sodium 148 H, Potassium 5.6 H, Chloride 113 H, Carbon Dioxide 28, Anion Gap 12.6, BUN 65 H, Creatinine 4.00 H, Estimated Creat Clear 16, Estimated GFR 12 L*, Est GFR ( Amer) 14 L*, Glucose 319 H, Calcium 7.8 L, Total Bilirubin 0.4, AST 19, ALT 15, Alkaline Phosphatase 113, Troponin I < 0.01, Total Protein 7.2, Albumin 3.6, Globulin 3.6 H, Albumin/Globulin Ratio 1.0 L 05/07/20 19:35: NT-Pro-B Natriuret Pep 3840 H 05/07/20 19:35: SARS-CoV-2 IgG Ab (Rapid) Negative, SARS-CoV-2 IgM Ab (Rapid) Negative 05/07/20 19:53: VBG pH 7.18 L, VBG pCO2 68.0 H, VBG pO2 79.6 H, VBG HCO3 24.5, VBG Total CO2 26.6, VBG O2 Saturation 93.3 H, VBG Base Excess -3.9 L 05/07/20 20:35: Urine Color Yellow, Urine Appearance Clear, Urine pH 5.5, Ur Specific [place] >= 1.030, Urine Protein 2+, Urine Glucose (UA) 2+, Urine Ketones Negative, Urine Blood Trace-i, Urine Nitrate Negative, Urine Bilirubin Negative, Urine Urobilinogen 0.2, Ur Leukocyte Esterase Negative, Urine RBC 3-5, Urine WBC 5-10, Ur Squamous Epith Cells 3-5 Result diagrams: 05/07/20 19:35 05/07/20 19:35 Orders (Tests/Meds): ED MEDICATIONS Discontinued Medications Generic Name Dose Route Start Last Admin Trade Name Freq PRN Reason Stop Dose Admin Furosemide 40 mg 05/07/20 19:45 05/07/20 20:15 Furosemide 40 Mg Tablet PO 05/07/20 19:46 Not Given ONCE ONE Furosemide 40 mg 05/07/20 20:14 05/07/20 20:15 Furosemide 40mg/4ml Vial IV 05/07/20 20:15 40 mg ONCE ONE Administration Calcium Gluconate 1,000 mg/ 35 mls @ 100 mls/hr 05/07/20 20:59 05/07/20 21:14 Sodium Chloride IV 05/07/20 21:19 100 mls/hr
[2020-05-07 20:18] LABS: Basophils % 0.4 % (0.1-2.0); Chloride 113 mmol/L (98-107); Eosinophils # 0.2 K/mm3 (0.0-0.4); Eosinophils % 1.9 % (0.1-12.0); Hematocrit 31.2 % (37.0-47.0); Hemoglobin 9.1 g/dL (12.2-16.2); Lymphocytes # 1.3 K/mm3 (0.7-4.5); Lymphocytes % 16.9 % (10-50); Mean Corpuscular Hemoglobin 27.6 pg (27.0-31.2); Mean Corpuscular Volume 94.9 fl (81-99); Mean Platelet Volume 8.8 fl (7.4-10.4); Monocytes # 0.4 K/mm3 (0.1-1.0); Monocytes % 5.7 % (1.7-9.3); Neutrophils # 5.8 K/mm3 (1.8-7.8); Neutrophils % 75.1 % (37.0-80.0); Platelet Count 223 K/mm3 (142-424); Red Blood Count 3.29 M/mm3 (4.20-5.40); Red Cell Distribution Width 14.6 % (11.5-17.5); White Blood Count 7.7 K/mm3 (4.8-10.8)
[2020-05-07 20:19] LABS: Potassium 5.6 mmoL/L (3.5-5.1); Sodium 148 mmol/L (136-145)
[2020-05-07 20:21] LABS: Alanine Aminotransferase 15 U/L (12-78); Alkaline Phosphatase 113 U/L (38-126); Aspartate Amino Transferase 19 U/L (14-36); Bilirubin,Total 0.4 mg/dl (0.2-1.3); Blood Urea Nitrogen 65 mg/dl (7-17); Creatinine Clearance Estimated 16 mL/min (50-200)
[2020-05-07 20:22] LABS: Albumin Level 3.6 g/dl (3.5-5.0); Anion Gap 12.6 mEq/L (5-15); Calcium 7.8 mg/dl (8.4-10.2); Carbon Dioxide 28 mmol/L (22.0-30.0); Globulin 3.6 g/dL (1.3-3.2); Glucose 319 mg/dl (74-100); Total Protein,Serum 7.2 g/dl (6.3-8.2)
[2020-05-07 20:26] LABS: Adenovirus,PCR Not Detected (NotDetected); Bordetella Pertussis Not Detected (NotDetected); Chlamydophila Pneumoniae, PCR Not Detected (NotDetected); Coronavirus 19, PCR Not Detected (NotDetected); Coronavirus 229E Not Detected (NotDetected); Coronavirus NL63 Not Detected (NotDetected); Coronavirus OC43 Not Detected (NotDetected); Coronovirus HKU1,PCR Not Detected (NotDetected); Human Metapneumovirus Not Detected (NotDetected); Influenza A, PCR Not Detected (NotDetected); Influenza AH1, 2009 Not Detected (NotDetected); Influenza AH1, PCR Not Detected (NotDetected); Influenza AH3,PCR Not Detected (NotDetected); Influenza B, PCR Not Detected (NotDetected); Mycoplasma Pneumoniae, PCR Not Detected (NotDetected); Parainfluenza 1, PCR Not Detected (NotDetected); Parainfluenza 2, PCR Not Detected (NotDetected); Parainfluenza 3, PCR Not Detected (NotDetected); Parainfluenza 4, PCR Not Detected (NotDetected); Respiratory Syncytial Virus Not Detected (NotDetected); Rhinovirus/Enterovirus Not Detected (NotDetected)
--- NOTE | 2020-05-07 20:44 | PC.NURSE ---
Pt placed on BIPAP at this time via RT
[2020-05-07 20:54] LABS: Troponin I < 0.01 ng/ml (0.00-0.034)
[2020-05-07 20:55] LABS: Estimated Glomerular Filt Rate 12 ml/min (>60); GFR (African American) 14 ML/MIN (>60)
[2020-05-07 20:59] LABS: Microscopic, Urine URINE MICROSCOPIC (MICROSCOPIC)
[2020-05-07 21:08] LABS: Appearance,Urine CLEAR (Clear); Bilirubin,Urine Negative (Negative); Blood, Urine TRACE-I (Negative); Color,Urine YELLOW (Yellow); Glucose,Urine (UA) 2+ (Negative); Ketones,Urine Negative (Negative); Leukocyte Esterase,Urine Negative (Negative); Nitrate,Urine Negative (Negative); PH,Urine 5.5 (5.0-8.5); Protein,Urine 2+ (Negative); Specific Gravity, Urine >= 1.030 (1.005-1.030); Urobilinogen,Urine 0.2 EU/dl (0.2)
[2020-05-07 21:13] LABS: NT Pro Brain Natriuretic Pep. 3840 pg/mL (0-125)
[2020-05-07 21:19] LABS: Coronavirus 19 IgG Antibody Negative (Negative); Coronavirus 19 IgM Antibody Negative (Negative)
[2020-05-07 22:11] LABS: Troponin I < 0.01 ng/ml (0.00-0.034)
[2020-05-07 22:17] LABS: VBG Base Excess -3.4 mmol/L (-2.4-2.3); VBG HCO3 23.4 mmol/L (23-30); VBG Oxygen Saturation 98.5 % (50-70); VBG PH 7.27 mmol/L (7.31-7.41); VBG PO2 148.6 mmol/L (28-40)
--- NOTE | 2020-05-07 22:39 | PC.NURSE ---
patient up to floor via stretcher.
[2020-05-08] VITALS (12 sets, daily range): BP systolic 134–175; BP diastolic 52–83; PULSE 60–80; RESP 18–24; TEMP 36.5–37; O2SAT 92–95; BMI 53.2
[2020-05-08 02:09] LABS: Troponin I < 0.01 ng/ml (0.00-0.034)
--- NOTE | 2020-05-08 04:27 | PC.NURSE ---
Pt A&OX4. lungs diminished t/o. O2 sat 95-97% on Bipap. f/c draining clear yellow urine. pt has rested quietly this shift
[2020-05-08 05:22] LABS: POC Glucose,Bedside 240 (70-110)
--- NOTE | 2020-05-08 06:00 | XR_ITS ---
PROCEDURE: XR CHEST PORTABLE Referring Doctor: Calvin Marquez Patient Age:55Y CLINICAL HISTORY: soa CHF dyspnea COMPARISON: CT CTAC CTA-CHEST from 11/10/2012 CR XR CHEST PORTABLE from 04/11/2020 CR XR CHEST 2V from 04/15/2020 CR XR CHEST 2V from 05/07/2020 FINDINGS: Today's semi-erect AP portable chest compared to May 07 two-view chest along with April 15 two-view CXR Prominent cardiomegaly.. Could not exclude pericardial effusion given configuration of the heart; you may want to consider consider echocardiogram Cephalization, vascular congestion reflecting underlying CHF. Similar to yesterday's study although perhaps vascular congestion/CHF very slightly less pronounced There is bibasilar airspace disease most pronounced at left base-. This along with likely left pleural effusion obscures the left hemidiaphragm. There is also patchy infiltrate seen at the right upper lung project over the anterior 2nd rib end. Could not exclude associated pneumonia developing here there Question mild perihilar infiltrate particularly on right which was slightly more evident yesterday two-view CXR IMPRESSION: . Prominent cardiomegaly again seen . CHF. The vascular congestion appears similar to perhaps very slight incrementally improved since yesterday. . Small left pleural effusion again noted . Bibasilar airspace disease.. This along with left pleural effusion obscures the left hemidiaphragm . Also suggestion/question small patchy area infiltrate RUL projected over the the 2nd anterior rib. Difficult to exclude minimal associated pneumonia here Dictated by: Anupam Kaab MD 05/08/2020 12:55 Anupam Kaba MD in [place] 05/08/2020 12:55
[2020-05-08 07:04] LABS: Basophils % 0.3 % (0.1-2.0); Eosinophils # 0.1 K/mm3 (0.0-0.4); Eosinophils % 2.1 % (0.1-12.0); Lymphocytes # 1.3 K/mm3 (0.7-4.5); Lymphocytes % 19.3 % (10-50); Mean Corpuscular HGB Conc 30.6 g/dL (31.8-35.4); Mean Corpuscular Hemoglobin 28.6 pg (27.0-31.2); Mean Corpuscular Volume 93.4 fl (81-99); Mean Platelet Volume 8.2 fl (7.4-10.4); Monocytes # 0.3 K/mm3 (0.1-1.0); Monocytes % 5.1 % (1.7-9.3); Neutrophils # 4.8 K/mm3 (1.8-7.8); Neutrophils % 73.2 % (37.0-80.0); Platelet Count 211 K/mm3 (142-424); Red Blood Count 2.86 M/mm3 (4.20-5.40); Red Cell Distribution Width 14.9 % (11.5-17.5); White Blood Count 6.5 K/mm3 (4.8-10.8)
[2020-05-08 07:05] LABS: Hematocrit 26.7 % (37.0-47.0); Hemoglobin 8.2 g/dL (12.2-16.2)
[2020-05-08 07:08] LABS: Chloride 115 mmol/L (98-107)
[2020-05-08 07:09] LABS: Potassium 4.9 mmoL/L (3.5-5.1); Sodium 148 mmol/L (136-145)
[2020-05-08 07:11] LABS: Blood Urea Nitrogen 70 mg/dl (7-17); Creatinine Clearance Estimated 17 mL/min (50-200); Estimated Glomerular Filt Rate 13 ml/min (>60); GFR (African American) 15 ML/MIN (>60)
[2020-05-08 07:12] LABS: Anion Gap 10.9 mEq/L (5-15); Calcium 7.9 mg/dl (8.4-10.2); Carbon Dioxide 27 mmol/L (22.0-30.0); Glucose 209 mg/dl (74-100)
--- NOTE | 2020-05-08 08:13 | HMH.HP ---
*Admission Date: 05/07/20 *Chief complaint: Shortness of breath *History of present illness: 57-year-old female with CHF and chronic kidney disease presented to the emergency department with progressive dyspnea over the last 48 hours that had reached the point where she was unable to ambulate more than 20 feet while wearing her supplemental oxygen without having to stop and rest. Patient states to recover she would begin hyperventilating. She became so short of breath that ultimately she contacted EMS. In route to the hospital patient was placed on 4 to 5 L of oxygen via the nasal cannula. Upon arrival to the emergency department patient was in respiratory distress. Patient had a respiratory acidosis and was placed on BiPAP which improved proved her oxygenation as well as patient's comfort. Work-up was consistent with acute congestive heart failure and patient was diuresed with Lasix 40 mg IV x1. This morning the patient reports that she feels comfortable while in bed and currently is sitting with nasal cannula in use. She denies fevers. She endorses orthopnea and cough. She has not had any chills. Patient lives alone. She does not have a scale at home to track her weight. She denies chest pain. She had noticed increased lower extremity edema over the last 48 hours. [facility] History I have reviewed the patient's past medical history: Yes Medical History: Reports:: Congestive Heart Failure, Coronary Artery Disease, Cerebrovascular Accident, Depression, Diabetes Mellitus Type 2, Heart Murmur, Hyperlipidemia, Hypertension Denies:: Cancer, Diabetes Mellitus Type 1, Internal Pacemaker, MRSA, Seizures *Have you ever received a pneumonia vaccine?: No *Have you received a flu vaccine this season?: Yes Other Medical History: Reports: Sinus Problems, Other Other Surgeries: Yes: Bariatric Surgery, Cardiac Catheterization, Cholecystectomy, Coronary Stent, Sinus Surgery, Tubal Ligation, Other (gastric sleeve). No: Pacemaker Amputation: No Fractures: No - *Social History Last grade of school completed: Advanced degree Smoking Status: Never smoker Alcohol Intake: never Alcohol Intake Frequency:: other Substance Use Type: denies use *Occupational Status:: disabled Housing: apartment Household Members: family *Travel in the last 8 weeks: None - Psychiatric History Pschychiatric History:: Reports:: Depression Family Hx:: Unable to obtain Review of Systems - Constitutional Denies anorexia, Denies body ache(s), Denies chills - ENT Denies abnormal hearing, Denies bleeding gums - *Cardiovascular Denies chest pain, Denies chest pain at rest, Denies chest pain with activity - *Respiratory Reports chest congestion, Reports cough (I put in a new discharge order), Reports shortness of breath (Think I think he can go), Reports shortness of breath with activity (The discharge plan her on the), Denies change in phlegm color - *Gastrointestinal Denies abdominal pain, Denies belching, Denies bloating - *Musculoskeletal Denies abnormal walking, Denies joint pain - *Neurologic Reports abnormal walking, Denies memory loss, Denies numbness Meds Home Medications Medication Instructions Recorded Confirmed Type Insulin Lispro [HumaLOG 100 30 unit SQ BID 10/05/17 05/07/20 History units/mL 3mL vial (SSI)] PARoxetine HCl [Paxil] 20 mg PO HS 10/05/17 05/07/20 History Aspirin [Aspirin 81mg EC Tab] 81 mg PO DAILY 06/23/18 05/07/20 History Atorvastatin Calcium [Lipitor 40mg 40 mg PO HS 06/23/18 05/07/20 History Tab] Cholecalciferol (Vitamin D3) 50,000 unit PO WEEKLY 06/23/18 05/07/20 History [Vitamin D3 50,000 unit Cap] Cyanocobalamin (Vitamin B-12) 1,000 mcg PO DAILY 06/23/18 05/07/20 History [Vitamin B-12 1000mcg Tablet] insulin glargine 100 unit/mL 56 unit SQ DAILY ml 05/13/19 05/07/20 History subcutaneous solution Clopidogrel Bisulfate [Plavix 75mg 75 mg PO DAILY 03/31/20 05/07/20 History Tab] Amlodipine Besylate [N
--- NOTE | 2020-05-08 08:54 | HMH.PHAVTE ---
[facility] Pharm[facility] VTE Monitoring - Patient Demographics Admission date: 05/07/20 Report Date: 05/08/20 Time: 08:55 Allergies/Adverse Reactions: Patient Allergies Sulfa (Sulfonamide Antibiotics) [SULFA (SULFONAMIDE ANTIBIOTICS)] Allergy (Intermediate, Verified 05/02/20 11:53) I-RASH Height: 1.73 m Weight: 159.466 kg Patient Problems: Current Active Problems Hypertensive heart disease (Chronic) Acute on chronic diastolic CHF (congestive heart failure) (Acute) BMI 50.0-59.9, adult (Acute) Hypernatremia (Acute) Chronic kidney disease, stage IV (severe) (Chronic) CHF exacerbation (Acute) Acute on chronic respiratory failure with hypoxia (Acute) Hyperkalemia (Acute) Poorly controlled diabetes mellitus (Acute) Chronic kidney disease (Acute) Anemia of chronic disease (Acute) Cardiorenal syndrome (Acute) Moderate mitral regurgitation (Chronic) CAD (coronary artery disease) (Chronic) Diabetes mellitus with hyperglycemia (Chronic) History of CVA (cerebrovascular accident) (Chronic) - VTE Risk Labs: VTE Related Lab Results Hgb 8.2 g/dL (12.2-16.2) L 05/08/20 06:08 Hct 26.7 % (37.0-47.0) L 05/08/20 06:08 Plt Count 211 K/mm3 (142-424) 05/08/20 06:08 BUN 70 mg/dl (7-17) H 05/08/20 06:08 Creatinine 3.70 mg/dl (0.52-1.04) H 05/08/20 06:08 Estimated Creat Clear 17 mL/min (50-200) 05/08/20 06:08 VTE Score: 4 VTE Risk Level: Moderate Risk - Prophylaxis VTE Prophylaxis Ordered?: Yes Types of VTE Prophylaxis: TEDS Knee High Location of Applied Device: Bilateral Lower Extremeties
[2020-05-08 11:20] LABS: POC Glucose,Bedside 227 (70-110)
[2020-05-08 16:59] LABS: POC Glucose,Bedside 228 (70-110)
--- NOTE | 2020-05-08 17:01 | PC.NURSE ---
Pt has been pleasant and cooperative this shift. A&O X4. No complaints of pain. Pt has intermittent episodes of SOA that resolve within 2-3 mins of slow, deep breathing. Pt is receiving O2 via NC @ 4 LPM with sats. >90%. Lung sounds reveal fine crackles. 2+ pitting edema noted to BLE and bilateral hands. Skin is C/D/I. F/C is patent and draining clear, yellow, urine at bedside to gravity. 1200 ML of urine output thus far this shift. No BM today. Pt ambulates with stand-by assistance in the room and was offered to sit in the recliner this shift. Pt declined and stated that she was just too worn out today . FSBS results have been 227 and 228, both of which have required insulin coverage per MAR. 20 G peripheral IV in the LT AC is patent and SL. VSS. Call light within reach. Will continue to monitor.
[2020-05-08 20:27] LABS: POC Glucose,Bedside 227 (70-110)
[2020-05-09] VITALS (10 sets, daily range): BP systolic 138–162; BP diastolic 54–69; PULSE 60–80; RESP 20–24; TEMP 36.5–36.8; O2SAT 91–94; BMI 52.2
--- NOTE | 2020-05-09 05:06 | PC.NURSE ---
pt has rested well t/o shift, pt has had 1100 mL out so far this shift, simons patent and draining clear, yellow urine, systolic BP 157-175, HR 64-74, has remained on bipap most of shift, O2 sats 93-95%, lung sounds diminished with fine crackles noted, pt has had no complaints of SOA, chest pain, N/V/D
[2020-05-09 05:19] LABS: POC Glucose,Bedside 208 (70-110)
--- NOTE | 2020-05-09 06:42 | HMH.ACPN2 ---
Internal Medicine - PN: Subj *Date: 05/09/20 *Time: 06:42 Interval history: No complaints from patient. She continues to respond well to intravenous Lasix as a diuretic. Blood pressures are higher than desired. She denies chest pain. She still has some dyspnea with ambulating and getting out of bed. Exam Vital signs and Labs for Last 24 Hours: Temp Pulse Resp BP Pulse Ox 98.0 F 67 24 158/62 H 94 L 05/09/20 03:42 05/09/20 03:42 05/09/20 03:42 05/09/20 03:42 05/09/20 03:42 Laboratory Results - last 24 hr 05/08/20 06:08: WBC 6.5, RBC 2.86 L, Hgb 8.2 L, Hct 26.7 L, MCV 93.4, MCH 28.6, MCHC 30.6 L, RDW 14.9, Plt Count 211, MPV 8.2, Neut % (Auto) 73.2, Lymph % (Auto) 19.3, [place] % (Auto) 5.1, Eos % (Auto) 2.1, Baso % (Auto) 0.3, Neut # (Auto) 4.8, Lymph # (Auto) 1.3, [place] # (Auto) 0.3, Eos # (Auto) 0.1, Baso # (Auto) 0.0 05/08/20 06:08: Sodium 148 H, Potassium 4.9, Chloride 115 H, Carbon Dioxide 27, Anion Gap 10.9, BUN 70 H, Creatinine 3.70 H, Estimated Creat Clear 17, Estimated GFR 13 L*, Est GFR ( Amer) 15 L*, Glucose 209 H D, Calcium 7.9 L 05/08/20 10:58: POC Glucose 227 H 05/08/20 16:40: POC Glucose 228 H 05/08/20 20:19: POC Glucose 227 H 05/09/20 05:12: POC Glucose 208 H I & O for Last 24 hours: Intake & Output 05/06/20 05/07/20 05/08/20 05/09/20 11:59 11:59 11:59 11:59 Intake Total 145 / 145 600 / 600 Output Total 1305 / 1305 3175 / 3175 Balance -1160 / -1160 -2575 / -2575 Weight 351 lb 9 oz 344 lb 8 oz Narrative: She appears comfortable. Breath sounds are distant with faint basilar rales more prominent on the right than on the left. Heart has a regular rate and rhythm. Edema of the feet Assessment and Plan (1) Acute on chronic diastolic CHF (congestive heart failure) Status: Acute Category: Medical Code(s): I50.33 - Acute on chronic diastolic (congestive) heart failure (2) Acute on chronic respiratory failure with hypoxia Status: Acute Category: Medical Code(s): J96.21 - Acute and chronic respiratory failure with hypoxia (3) Cardiorenal syndrome Status: Acute Category: Medical Code(s): I13.10 - Hypertensive heart and chronic kidney disease without heart failure, with stage 1 through stage 4 chronic kidney disease, or unspecified chronic kidney disease (4) Anemia of chronic disease Status: Acute Category: Medical Code(s): D63.8 - Anemia in other chronic diseases classified elsewhere (5) Hyperkalemia Status: Acute Category: Medical Code(s): E87.5 - Hyperkalemia (6) Hypernatremia Status: Acute Category: Medical Code(s): E87.0 - Hyperosmolality and hypernatremia (7) BMI 50.0-59.9, adult Status: Acute Category: Medical Code(s): Z68.43 - Body mass index [BMI] 50.0-59.9, adult (8) Diabetes mellitus with hyperglycemia Status: Chronic Category: Medical Code(s): E11.65 - Type 2 diabetes mellitus with hyperglycemia (9) Hypertensive heart disease Status: Chronic Category: Medical Code(s): I11.9 - Hypertensive heart disease without heart failure (10) CAD (coronary artery disease) Status: Chronic Qualifiers: Coronary Disease-Associated Artery/Lesion type: [place] artery [place] vs. transplanted heart: [place] heart Associated angina: without angina Qualified Code(s): I25.10 - Atherosclerotic heart disease of [place] coronary artery without angina pectoris Category: Medical Code(s): I25.10 - Atherosclerotic heart disease of [place] coronary artery without angina pectoris (11) Chronic kidney disease, stage IV (severe) Status: Chronic Category: Medical Code(s): N18.4 - Chronic kidney disease, stage 4 (severe) (12) History of CVA (cerebrovascular accident) Status: Chronic Category: Medical Code(s): Z86.73 - Personal history of transient ischemic attack (TIA), and cerebral infarction without residual deficits (13) Moderate mitral regurgitation Status: Chronic Category: Medical Code(s): I34.0 -
[2020-05-09 07:34] LABS: Basophils % 0.4 % (0.1-2.0); Eosinophils # 0.2 K/mm3 (0.0-0.4); Eosinophils % 2.7 % (0.1-12.0); Hematocrit 27.5 % (37.0-47.0); Hemoglobin 8.3 g/dL (12.2-16.2); Lymphocytes % 16.7 % (10-50); Mean Corpuscular HGB Conc 30.1 g/dL (31.8-35.4); Mean Corpuscular Volume 93.3 fl (81-99); Mean Platelet Volume 8.5 fl (7.4-10.4); Monocytes # 0.3 K/mm3 (0.1-1.0); Monocytes % 5.5 % (1.7-9.3); Neutrophils # 4.3 K/mm3 (1.8-7.8); Neutrophils % 74.7 % (37.0-80.0); Platelet Count 202 K/mm3 (142-424); Red Blood Count 2.95 M/mm3 (4.20-5.40); Red Cell Distribution Width 14.8 % (11.5-17.5); White Blood Count 5.8 K/mm3 (4.8-10.8)
[2020-05-09 07:35] LABS: Chloride 114 mmol/L (98-107); Potassium 4.8 mmoL/L (3.5-5.1); Sodium 148 mmol/L (136-145)
[2020-05-09 07:38] LABS: Anion Gap 9.8 mEq/L (5-15); Blood Urea Nitrogen 66 mg/dl (7-17); Carbon Dioxide 29 mmol/L (22.0-30.0); Creatinine Clearance Estimated 19 mL/min (50-200); Estimated Glomerular Filt Rate 14 ml/min (>60); GFR (African American) 17 ML/MIN (>60)
[2020-05-09 07:39] LABS: Calcium 8.4 mg/dl (8.4-10.2); Glucose 202 mg/dl (74-100)
--- NOTE | 2020-05-09 09:16 | PC.NURSE ---
Cardiology at bs to see pt r/t consult.
--- NOTE | 2020-05-09 09:21 | HMH.CNCARD ---
History of Present Illness Consult date: 05/09/20 Requesting physician: Domingo Courtney Consult reason: shortness of breath Chief complaint: Shortness of breath History of present illness: This is a 57-year-old white female who was admitted to the hospital with worsening shortness of breath. The patient states that her shortness of breath got progressively worse over the last 48 hours prior to her admission to the hospital. The patient states that she was unable to ambulate 20 feet without having significant symptoms. She denies any chest pain or pressure. She states that she was having to increase her oxygen use because of her worsening shortness of breath. In route to the hospital she was placed on 4 to 5 L of oxygen via nasal cannula because of her shortness of breath. The patient was placed on a BiPAP when she was admitted to the hospital. The patient has diuresed well with Lasix 40 mg IV daily. Her renal function continues to worsen. On admission her creatinine was 4.0 and is down to 3.3 today. In 2016 she essentially had normal renal function and in 2018 her creatinine was around 1.4 and 1.5 and then jumped up to the 2 and 3 range in 2019. The patient has had a rapid progression of her renal function which is very suspicious for glomerular nephritis. Her renal function could be from a prerenal cause but we suspect that the patient has more going on with her renal function. The patient denies any fever, chills, nausea, vomiting, diarrhea. Her shortness of breath is associated with orthopnea and cough. Of note she did get stents in June 2019. At that time the patient states that she was not having chest pain or pressure either, she only had shortness of breath. Her shortness of breath is also associated with bilateral lower extremity edema. The patient states that with Lasix she has had improvement in her shortness of breath and lower extremity edema as well. She states she is no longer short of breath at rest and mostly just with exertion now. [facility] History I have reviewed the patient's past medical history: Yes Medical History: Reports:: Congestive Heart Failure, Coronary Artery Disease, Cerebrovascular Accident, Depression, Diabetes Mellitus Type 2, Heart Murmur, Hyperlipidemia, Hypertension Denies:: Cancer, Diabetes Mellitus Type 1, Internal Pacemaker, MRSA, Seizures *Have you ever received a pneumonia vaccine?: No *Have you received a flu vaccine this season?: Yes Other Medical History: Reports: Sinus Problems, Other Other Surgeries: Yes: Bariatric Surgery, Cardiac Catheterization, Cholecystectomy, Coronary Stent, Sinus Surgery, Tubal Ligation, Other (gastric sleeve). No: Pacemaker Amputation: No Fractures: No - *Social History Last grade of school completed: Advanced degree Smoking Status: Never smoker Alcohol Intake: never Alcohol Intake Frequency:: other Substance Use Type: denies use *Occupational Status:: disabled Housing: apartment Household Members: family *Travel in the last 8 weeks: None - Psychiatric History Pschychiatric History:: Reports:: Depression Family Hx:: Unable to obtain Meds Home Medications Medication Instructions Recorded Confirmed Type Insulin Lispro [HumaLOG 100 30 unit SQ BID 10/05/17 05/07/20 History units/mL 3mL vial (SSI)] PARoxetine HCl [Paxil] 20 mg PO HS 10/05/17 05/07/20 History Aspirin [Aspirin 81mg EC Tab] 81 mg PO DAILY 06/23/18 05/07/20 History Atorvastatin Calcium [Lipitor 40mg 40 mg PO HS 06/23/18 05/07/20 History Tab] Cholecalciferol (Vitamin D3) 50,000 unit PO WEEKLY 06/23/18 05/07/20 History [Vitamin D3 50,000 unit Cap] Cyanocobalamin (Vitamin B-12) 1,000 mcg PO DAILY 06/23/18 05/07/20 History [Vitamin B-12 1000mcg Tablet] insulin glargine 100 unit/mL 56 unit SQ DAILY ml 05/13/19 05/07/20 History subcutaneous solution Clopidogrel Bisulfate [Plavix 75mg 75 mg PO DAILY 03/31/20 05/07/20 History Tab] Amlodipine Besylate [Norvasc 5mg 5 mg PO D
[2020-05-09 09:33] LABS: Troponin I 0.02 ng/ml (0.00-0.034)
--- NOTE | 2020-05-09 09:39 | CA_ITS ---
APPROVED REPORT Head Of Biology: Hilaria Portillo RVT Study Quality: Fair, Due to body habitus. Indications: malignant htn Risk Factors Hypertension Hyperlipidemia Obesity Diabetes Renal Artery Doppler Mid (R) 67.9/ cm/sec Distal (R) 81.3/ cm/sec Renal Aorta Ratio (R) 0.51 Segmental A. (R) 125.9/13.4 cm/sec RI: 0.89 Segmental A. Sup (R) 55.0/3.7 cm/sec Segmental A. Mid (R) 125.9/13.4 cm/sec Segmental A. Inf (R) 108.8/4.9 cm/sec Proximal (L) 110.5/ cm/sec Distal (L) 69.6/ cm/sec Renal Aorta Ratio (L) 0.69 Segmental A. (L) 98.8/10.1 cm/sec RI: 0.89 Segmental A. Sup (L) 40.4/9.0 cm/sec Segmental A. Mid (L) 98.8/10.1 cm/sec Segmental A. Inf (L) 49.4/10.1 cm/sec Renal Measurements Kidney Size (R) 11.2x8.1 cm Cortical Thickness (R) 1.8 cm Kidney Size (L) 13.4x9.4 cm Cortical Thickness (L) 1.9 cm Findings No evidence of stenosis of the bilateral renal arteries. Proximal right renal artery and mid left renal artery was not visualized r/t patient body habitus. Conclusion No evidence of stenosis of the bilateral renal arteries. Proximal right renal artery and mid left renal artery was not visualized r/t patient body habitus. Electronically signed by : Krishna Sepulveda MD 05/09/2020 16:19:44
[2020-05-09 10:26] LABS: Alanine Aminotransferase 11 U/L (12-78); Alkaline Phosphatase 94 U/L (38-126); Aspartate Amino Transferase 14 U/L (14-36); Bilirubin,Direct 0.2 mg/dl (0.0-0.4); Bilirubin,Indirect 0.2 mg/dL (0.0-0.9); Bilirubin,Total 0.4 mg/dl (0.2-1.3); Bilirubin,Unconjugated 0.2 mg/dL (0.0-1.1)
[2020-05-09 10:27] LABS: Albumin Level 3.2 g/dl (3.5-5.0); Total Protein,Serum 6.7 g/dl (6.3-8.2)
--- NOTE | 2020-05-09 10:30 | PC.NURSE ---
24hr urine collection started
--- NOTE | 2020-05-09 10:46 | PC.NURSE ---
Radiology performing bs renal duplex at this time.
[2020-05-09 11:30] LABS: POC Glucose,Bedside 239 (70-110)
--- NOTE | 2020-05-09 11:30 | PC.NURSE ---
24hr urine protein started.
--- NOTE | 2020-05-09 18:31 | PC.NURSE ---
Pt asleep on left side at this time.
[2020-05-09 23:17] LABS: POC Glucose,Bedside 196 (70-110)
--- NOTE | 2020-05-09 23:58 | PC.NURSE ---
pt was in chair at beginning of shift and has since returned to bed, has rested well, L AC IV leaking, YVONNE Agudelo acquired new IV access in right AC, simons catheter patent and draining clear yellow urine, 1250 mL out so far this shift, pt is on 4L NC with O2 sats 91%, has no complaints of SOA or chest pain, lung sounds diminished t/o, BUE and BLE 2+ pitting edema present, 24 hour urine in progress
[2020-05-10] VITALS (24 sets, daily range): BP systolic 118–175; BP diastolic 47–91; PULSE 44–84; RESP 16–24; TEMP 36.5–36.9; O2SAT 89–96; BMI 51.5
--- NOTE | 2020-05-10 | IR_ITS ---
APPROVED REPORT Patient Location: Inpatient PROCEDURES Right internal jugular vein access Right heart catheterization INDICATION Pulmonary hypertension, Biventricular congestive heart failure Informed consent was obtained prior to the procedure. COMPLICATIONS none Estimated Blood Loss: less than 10 mls TECHNIQUE One percent lidocaine was used to anesthetize the right anterior aspect of the neck. A vp integrity needle was used to identify the right internal jugular vein. Following this a larger cannulation needle was used to cannulate the right internal jugular vein and a wire was passed into the vein. Prior to the 7 Pashto sheath being inserted the wire was confirmed under fluoroscopic guidance to be in the inferior vena cava. A 7 Pashto sheath was introduced and a Hastings-Marcelino catheter was floated using hemodynamic waveforms in the pulmonary artery, right ventricle , and right atrium. Saturations were obtained in the pulmonary artery and the right atrium. At the end of the procedure the patient was transferred to the postop holding area in stable condition for sheath removal. ANGIOGRAPHIC RESULTS Right atrial pressure 25 mmHg Right ventricular pressure 70/25 mmHg Pulmonary artery pressure 70/35 mmHg Pulmonary occlusion pressure between 30 and 35 mmHg Right atrial saturation 43% Pulmonary artery saturation 37% IMPRESSION Severe pulmonary hypertension with near equilibration of cardiopulmonary pressures suggesting severe restrictive cardiomyopathy Severe biventricular congestive heart failure Low cardiac output state as evidenced by low described saturations PLAN 1. I suspect patient has a systemic disease affecting both heart and kidneys most likely either amyloidosis or possible light chain gammopathy. The rapid onset of renal failure combined with severe pulmonary hypertension with restrictive physiology numbers suggest a systemic deposition disease. 2. Patient is severely hypoxemic and requires additional diuresis. Given the degree of renal dysfunction I doubt oral diuretics will achieve adequate left-sided diuresis. Given the severity of patient's condition ideally she should be transferred to a tertiary center and undergo endomyocardial biopsy, possible rectal biopsy, possible cardiac MRI, or possible renal biopsy. 3. Until patient is able to be transferred to a tertiary center she can be started on IV diuretics 4. Patient has a poor prognosis given the above 5. While it is possible she has a severe form of hypertensive heart disease causing the above condition, this is less likely given the rapidity of the multisystem organ failure and makes amyloidosis or other protein gammopathy more likely Electronically signed by : Gómez Buchanan, 05/10/2020 12:51:51
--- NOTE | 2020-05-10 00:07 | PC.NURSE ---
Pt refused BiPAP
[2020-05-10 05:48] LABS: POC Glucose,Bedside 224 (70-110)
--- NOTE | 2020-05-10 07:32 | HMH.ACPN2 ---
Internal Medicine - PN: Subj *Date: 05/10/20 *Time: 07:32 Interval history: Patient has no complaints this morning. No events overnight. Weight is down additional 4 pounds. She is scheduled for right heart cath today Exam Vital signs and Labs for Last 24 Hours: Temp Pulse Resp BP Pulse Ox 98.5 F 78 16 130/65 91 L 05/10/20 04:00 05/10/20 04:00 05/10/20 04:00 05/10/20 04:00 05/10/20 04:00 Laboratory Results - last 24 hr 05/09/20 06:45: WBC 5.8, RBC 2.95 L, Hgb 8.3 L, Hct 27.5 L, MCV 93.3, MCH 28.0, MCHC 30.1 L, RDW 14.8, Plt Count 202, MPV 8.5, Neut % (Auto) 74.7, Lymph % (Auto) 16.7, Ralls % (Auto) 5.5, Eos % (Auto) 2.7, Baso % (Auto) 0.4, Neut # (Auto) 4.3, Lymph # (Auto) 1.0, R[place] # (Auto) 0.3, Eos # (Auto) 0.2, Baso # (Auto) 0.0 05/09/20 06:45: Sodium 148 H, Potassium 4.8, Chloride 114 H, Carbon Dioxide 29, Anion Gap 9.8, BUN 66 H, Creatinine 3.30 H, Estimated Creat Clear 19, Estimated GFR 14 L*, Est GFR ( Amer) 17 L*, Glucose 202 H, Calcium 8.4 05/09/20 06:45: Troponin I 0.02 05/09/20 06:45: Total Bilirubin 0.4, Direct Bilirubin 0.2, Conjugated Bilirubin 0.0, Indirect Bilirubin 0.2, Unconjugated Bilirubin 0.2, AST 14 D, ALT 11 L D, Alkaline Phosphatase 94, Total Protein 6.7, Albumin 3.2 L D 05/09/20 10:37: POC Glucose 239 H 05/09/20 12:56: Urine Total Protein 261.0 H 05/09/20 20:37: POC Glucose 196 H 05/10/20 05:20: POC Glucose 224 H I & O for Last 24 hours: Intake & Output 05/07/20 05/08/20 05/09/20 05/10/20 11:59 11:59 11:59 11:59 Intake Total 145 / 145 1200 / 1200 480 / 480 Output Total 1305 / 1305 3675 / 3675 3150 / 3150 Balance -1160 / -1160 -2475 / -2475 -2670 / -2670 Weight 351 lb 9 oz 344 lb 8 oz 340 lb 2 oz - Constitutional no acute distress - *Routine Respiratory Exam Present: distant breath sounds - *Routine Cardiovascular Exam Present: RRR, Normal S1, Normal S2 Assessment and Plan (1) Chronic kidney disease, stage IV (severe) Status: Chronic Category: Medical Code(s): N18.4 - Chronic kidney disease, stage 4 (severe) (2) Acute on chronic diastolic CHF (congestive heart failure) Status: Acute Category: Medical Code(s): I50.33 - Acute on chronic diastolic (congestive) heart failure (3) Acute on chronic respiratory failure with hypoxia Status: Acute Category: Medical Code(s): J96.21 - Acute and chronic respiratory failure with hypoxia (4) Cardiorenal syndrome Status: Acute Category: Medical Code(s): I13.10 - Hypertensive heart and chronic kidney disease without heart failure, with stage 1 through stage 4 chronic kidney disease, or unspecified chronic kidney disease (5) Anemia of chronic disease Status: Acute Category: Medical Code(s): D63.8 - Anemia in other chronic diseases classified elsewhere (6) Hypernatremia Status: Acute Category: Medical Code(s): E87.0 - Hyperosmolality and hypernatremia (7) BMI 50.0-59.9, adult Status: Acute Category: Medical Code(s): Z68.43 - Body mass index [BMI] 50.0-59.9, adult (8) Diabetes mellitus with hyperglycemia Status: Chronic Category: Medical Code(s): E11.65 - Type 2 diabetes mellitus with hyperglycemia (9) Hypertensive heart disease Status: Chronic Category: Medical Code(s): I11.9 - Hypertensive heart disease without heart failure (10) CAD (coronary artery disease) Status: Chronic Qualifiers: Coronary Disease-Associated Artery/Lesion type: [place] artery [place] vs. transplanted heart: [place] heart Associated angina: without angina Qualified Code(s): I25.10 - Atherosclerotic heart disease of [place] coronary artery without angina pectoris Category: Medical Code(s): I25.10 - Atherosclerotic heart disease of [place] coronary artery without angina pectoris (11) History of CVA (cerebrovascular accident) Status: Chronic Category: Medical Code(s): Z86.73 - Personal history of transient ischemic attack (TIA), and cerebral infarction without residual d
[2020-05-10 08:00] LABS: Basophils % 0.3 % (0.1-2.0); Eosinophils # 0.2 K/mm3 (0.0-0.4); Eosinophils % 2.7 % (0.1-12.0); Hemoglobin 8.6 g/dL (12.2-16.2); Lymphocytes % 15.4 % (10-50); Mean Corpuscular HGB Conc 29.7 g/dL (31.8-35.4); Mean Corpuscular Hemoglobin 27.7 pg (27.0-31.2); Mean Corpuscular Volume 93.3 fl (81-99); Mean Platelet Volume 10.4 fl (7.4-10.4); Monocytes # 0.4 K/mm3 (0.1-1.0); Neutrophils # 4.7 K/mm3 (1.8-7.8); Neutrophils % 75.6 % (37.0-80.0); Platelet Count 201 K/mm3 (142-424); Red Blood Count 3.11 M/mm3 (4.20-5.40); Red Cell Distribution Width 14.5 % (11.5-17.5); White Blood Count 6.3 K/mm3 (4.8-10.8)
[2020-05-10 08:05] LABS: Chloride 111 mmol/L (98-107); Potassium 4.8 mmoL/L (3.5-5.1); Sodium 147 mmol/L (136-145)
[2020-05-10 08:07] LABS: Blood Urea Nitrogen 63 mg/dl (7-17); Creatinine Clearance Estimated 20 mL/min (50-200); Estimated Glomerular Filt Rate 16 ml/min (>60); GFR (African American) 19 ML/MIN (>60)
[2020-05-10 08:08] LABS: Anion Gap 8.8 mEq/L (5-15); Carbon Dioxide 32 mmol/L (22.0-30.0); Cholesterol 163 mg/dl (140-200); Triglycerides 112 mg/dl (30-150); VLDL Cholesterol 22 mg/dL (0-40)
[2020-05-10 08:09] LABS: Calcium 8.8 mg/dl (8.4-10.2); Chol/HDL Ratio 4.1 (1-3.5); Glucose 197 mg/dl (74-100); HDL Cholesterol 40 mg/dl (40-60)
[2020-05-10 08:19] LABS: Direct LDL Cholesterol 69.53 mg/dL (100-129)
[2020-05-10 09:32] LABS: POC Glucose,Bedside 196 (70-110)
--- NOTE | 2020-05-10 09:55 | HMH.PNCARD ---
Subjective Date: 05/10/20 Time: 09:30 Principal diagnosis: diastolic chf Interval history: The patient did well overnight. She states her shortness of breath and edema have significantly improved even more with continued diuresis. Her renal function still remains elevated. Her urine protein was elevated as well. Still considering a renal biopsy if her right heart cath today comes back normal. Denies any chest pain or pressure. Denies any fever, chills, nausea, vomiting, diarrhea. Exam Vital signs and Labs for Last 24 Hours: Temp Pulse Resp BP Pulse Ox 97.7 F 62 19 128/68 92 L 05/10/20 08:00 05/10/20 08:00 05/10/20 08:00 05/10/20 08:00 05/10/20 08:00 Laboratory Results - last 24 hr 05/09/20 06:45: Total Bilirubin 0.4, Direct Bilirubin 0.2, Conjugated Bilirubin 0.0, Indirect Bilirubin 0.2, Unconjugated Bilirubin 0.2, AST 14 D, ALT 11 L D, Alkaline Phosphatase 94, Total Protein 6.7, Albumin 3.2 L D 05/09/20 10:37: POC Glucose 239 H 05/09/20 12:56: Urine Total Protein 261.0 H 05/09/20 16:10: POC Glucose 196 H 05/09/20 20:37: POC Glucose 196 H 05/10/20 05:20: POC Glucose 224 H 05/10/20 07:50: WBC 6.3, RBC 3.11 L, Hgb 8.6 L, Hct 29.0 L, MCV 93.3, MCH 27.7, MCHC 29.7 L, RDW 14.5, Plt Count 201, MPV 10.4, Neut % (Auto) 75.6, Lymph % (Auto) 15.4, [place] % (Auto) 6.0, Eos % (Auto) 2.7, Baso % (Auto) 0.3, Neut # (Auto) 4.7, Lymph # (Auto) 1.0, [place] # (Auto) 0.4, Eos # (Auto) 0.2, Baso # (Auto) 0.0 05/10/20 07:50: Sodium 147 H, Potassium 4.8, Chloride 111 H, Carbon Dioxide 32 H, Anion Gap 8.8, BUN 63 H, Creatinine 3.10 H, Estimated Creat Clear 20, Estimated GFR 16 L*, Est GFR ( Amer) 19 L*, Glucose 197 H, Calcium 8.8, Triglycerides 112, Cholesterol 163, LDL Cholesterol Direct 69.53 L, VLDL Cholesterol 22, HDL Cholesterol 40, Cholesterol/HDL Ratio 4.1 H I & O for Last 24 hours: Intake & Output 05/07/20 05/08/20 05/09/20 05/10/20 23:59 23:59 23:59 23:59 Intake Total 720 / 720 1080 / 1080 0 / 0 Output Total 680 / 680 2325 / 2325 3925 / 3925 1650 / 1650 Balance -655 / -655 -1605 / -1605 -2845 / -2845 -1650 / -1650 Weight 353 lb 6 oz 351 lb 9 oz 344 lb 8 oz 340 lb 2 oz Narrative: Renal duplex showed no renal artery stenosis Total urine protein was 261 mg/dL - Constitutional no acute distress, morbidly obese - *Routine HEENT Exam Head: Present: normocephalic, atraumatic Eye: Present: EOMI, PERRL ENT: Present: mucous membranes moist - *Routine Neck Exam Present: supple, full ROM, normal carotid upstroke. Absent: JVD, carotid bruit, lymphadenopathy - *Routine Respiratory Exam Present: decreased breath sounds, CTA bilaterally - *Routine Cardiovascular Exam Present: RRR, Normal S1, Normal S2, murmur - *Routine Abdominal Exam Present: soft, normoactive bowel sounds. Absent: tenderness, distended, rebound - *Routine Extremities Exam Present: edema (Bilateral lower extremities), full ROM, pulses intact, normal capillary refill. Absent: cyanosis, clubbing - *Routine Skin Exam Present: intact, warm. Absent: erythema, rash - *Routine Neurological Exam Present: alert, oriented X3, CN II-XII intact. Absent: sensory deficit, motor deficit Progress Note: A&P (1) Chronic kidney disease, stage IV (severe) Status: Chronic (2) Acute on chronic diastolic CHF (congestive heart failure) Status: Acute (3) Acute on chronic respiratory failure with hypoxia Status: Acute (4) Cardiorenal syndrome Status: Acute (5) Anemia of chronic disease Status: Acute (6) Hypernatremia Status: Acute (7) BMI 50.0-59.9, adult Status: Acute (8) Diabetes mellitus with hyperglycemia Status: Chronic (9) Hypertensive heart disease Status: Chronic (10) CAD (coronary artery disease) Status: Chronic (11) History of CVA (cerebrovascular accident) Status: Chronic Assessment and Plan for All Diagnoses:: Plan: 1. Patient was admitted to the hospital for worsening short
[2020-05-10 12:17] LABS: Uric Acid 7.9 mg/dl (2.5-6.2)
[2020-05-10 12:21] LABS: C-Reactive Protein 36.1 mg/L (0-4)
[2020-05-10 14:55] LABS: CATHL Arterial O2 SAT 37 % (90-100); CATHL Venous O2 SAT 44 % (75-80)
[2020-05-10 15:13] LABS: Creatinine,Urine Random 51 mg/dL (Not Estab.)
[2020-05-10 16:27] LABS: Erythrocyte Sedimentation Rate > 140 mm/hr (0-30)
[2020-05-10 17:24] LABS: POC Glucose,Bedside 209 (70-110)
--- NOTE | 2020-05-10 20:18 | PC.NURSE ---
PT IS RESTING IN BED. PT HAS BEEN VERY DROWSY THIS SHIFT SINCE ARRIVING BACK TO THE FLOOR FROM THE HEART CATH. WILL AWAKEN EASILY TO VOICE AND ANSWER QUESTIONS. PT SAT UP IN THE CHAIR THIS MORNING BEFORE HEART CATH. 02 SATURATION MAINTAINED 90-92% ON 4 L NC. PT STATES SHE IS ABLE TO BREATHE EASIER WHILE RESTING ON HER LEFT SIDE. LUNG SOUNDS DIMINISHED. ABDOMEN SOFT/LARGE WITH HYPOACTIVE BOWEL SOUNDS. ALERT AND ORIENTED X4. VSS. DRESSING TO THE IJ CATH SITE C/D/I. 1+ PITTING BLE EDEMA. WILL CONTINUE TO MONITOR.
[2020-05-10 21:31] LABS: POC Glucose,Bedside 171 (70-110)
--- NOTE | 2020-05-10 23:14 | PC.NURSE ---
at beginning of shift O2 was checked and found to be 76% ,RT called and pt was placed on Bipap, O2 sats sustained 88-92% until 2250, pt dropped to 83% and sustained, RT called and again and made adjustments to bipap, pt sats now 90-92%
[2020-05-11] VITALS (12 sets, daily range): BP systolic 123–150; BP diastolic 40–87; PULSE 60–72; RESP 20–28; TEMP 36.5–37.3; O2SAT 92–96; BMI 50.1
--- NOTE | 2020-05-11 04:16 | PC.NURSE ---
pt has rested well since adjustments made to bipap, O2 sats have been 90-92%, intrajugular cath site with dressing in place, C/D/I, pt did complain of SOA at beginning of shift, has not complained since last adjustments made to bipap, lung sounds are diminished with fine crackles noted, simons catheter patent draining clear yellow urine, 1000 mL out so far this shift, 2+ pitting BLE edema still noted as well as 2+ non pitting edema to bilateral hands, pt was very anxious and tearful at beginning of shift, was reassured that we would get her oxygen sats back up, pt stated that wasn't what she was worried about, stated that she was going to because of what they found out from her heart cath, explained to the pt at this time the priority was getting her O2 sats up, pt has rested since 0000, HR 69-75, systolic BP 143-168
[2020-05-11 06:14] LABS: POC Glucose,Bedside 147 (70-110)
--- NOTE | 2020-05-11 07:11 | HMH.ACPN2 ---
Internal Medicine - PN: Subj *Date: 05/11/20 *Time: 07:11 Interval history: Patient underwent right heart cath yesterday that revealed severe pulmonary hypertension in raise suspicion for restrictive cardiomyopathy being the source of the patient's heart failure. Arrangements have been made to transfer the patient to [facility] for further work-up for her restrictive cardiomyopathy. Please see the cath report for full details. Patient had an episode of hypoxia overnight that required temporary increase in O2 flow via nasal cannula and patient was placed back on BiPAP early and has been able to maintain sats between 90 and 92%. This morning she reports feeling comfortable. Exam Vital signs and Labs for Last 24 Hours: Temp Pulse Resp BP Pulse Ox 98.5 F 60 23 143/58 H 92 L 05/11/20 03:48 05/11/20 04:00 05/11/20 03:48 05/11/20 03:48 05/11/20 03:48 Laboratory Results - last 24 hr 05/09/20 09:39: Urine Creatinine 51 05/09/20 16:10: POC Glucose 196 H 05/10/20 07:50: WBC 6.3, RBC 3.11 L, Hgb 8.6 L, Hct 29.0 L, MCV 93.3, MCH 27.7, MCHC 29.7 L, RDW 14.5, Plt Count 201, MPV 10.4, Neut % (Auto) 75.6, Lymph % (Auto) 15.4, [place] % (Auto) 6.0, Eos % (Auto) 2.7, Baso % (Auto) 0.3, Neut # (Auto) 4.7, Lymph # (Auto) 1.0, [place] # (Auto) 0.4, Eos # (Auto) 0.2, Baso # (Auto) 0.0 05/10/20 07:50: Sodium 147 H, Potassium 4.8, Chloride 111 H, Carbon Dioxide 32 H, Anion Gap 8.8, BUN 63 H, Creatinine 3.10 H, Estimated Creat Clear 20, Estimated GFR 16 L*, Est GFR ( Amer) 19 L*, Glucose 197 H, Calcium 8.8, Triglycerides 112, Cholesterol 163, LDL Cholesterol Direct 69.53 L, VLDL Cholesterol 22, HDL Cholesterol 40, Cholesterol/HDL Ratio 4.1 H 05/10/20 07:50: Uric Acid 7.9 H, C-Reactive Protein 36.1 H 05/10/20 12:10: ABG O2 Sat (Measured) 37 L, POC VBG O2 Sat (Yudith) 44 L 05/10/20 14:05: ESR > 140 H 05/10/20 16:17: POC Glucose 209 H 05/10/20 21:01: POC Glucose 171 H 05/11/20 05:27: POC Glucose 147 H I & O for Last 24 hours: Intake & Output 05/08/20 05/09/20 05/10/20 05/11/20 11:59 11:59 11:59 11:59 Intake Total 145 / 145 1200 / 1200 480 / 480 120 / 120 Output Total 1305 / 1305 3675 / 3675 3600 / 3600 1550 / 1550 Balance -1160 / -1160 -2475 / -2475 -3120 / -3120 -1430 / -1430 Weight 351 lb 9 oz 344 lb 8 oz 340 lb 2 oz 331 lb 3 oz - Constitutional no acute distress, obese - *Routine Respiratory Exam Present: rales, diminished air movement - *Routine Cardiovascular Exam Present: RRR - *Routine Abdominal Exam Present: soft, normoactive bowel sounds, obese. Absent: tenderness - *Routine Extremities Exam Present: edema Assessment and Plan (1) Restrictive cardiomyopathy Status: Acute Category: Medical Code(s): I42.5 - Other restrictive cardiomyopathy (2) Chronic kidney disease, stage IV (severe) Status: Chronic Category: Medical Code(s): N18.4 - Chronic kidney disease, stage 4 (severe) (3) Acute on chronic diastolic CHF (congestive heart failure) Status: Acute Category: Medical Code(s): I50.33 - Acute on chronic diastolic (congestive) heart failure (4) Acute on chronic respiratory failure with hypoxia Status: Acute Category: Medical Code(s): J96.21 - Acute and chronic respiratory failure with hypoxia (5) Cardiorenal syndrome Status: Acute Category: Medical Code(s): I13.10 - Hypertensive heart and chronic kidney disease without heart failure, with stage 1 through stage 4 chronic kidney disease, or unspecified chronic kidney disease (6) Anemia of chronic disease Status: Acute Category: Medical Code(s): D63.8 - Anemia in other chronic diseases classified elsewhere (7) Hypernatremia Status: Acute Category: Medical Code(s): E87.0 - Hyperosmolality and hypernatremia (8) BMI 50.0-59.9, adult Status: Acute Category: Medical Code(s): Z68.43 - Body mass index [BMI] 50.0-59.9, adult (9) Diabetes mellitus with hyperglycemia Status: Chronic Category: Medical
[2020-05-11 07:42] LABS: Basophils % 0.3 % (0.1-2.0); Eosinophils # 0.1 K/mm3 (0.0-0.4); Hematocrit 27.2 % (37.0-47.0); Hemoglobin 8.3 g/dL (12.2-16.2); Lymphocytes % 17.2 % (10-50); Mean Corpuscular HGB Conc 30.4 g/dL (31.8-35.4); Mean Corpuscular Hemoglobin 28.1 pg (27.0-31.2); Mean Corpuscular Volume 92.2 fl (81-99); Mean Platelet Volume 8.5 fl (7.4-10.4); Monocytes # 0.3 K/mm3 (0.1-1.0); Monocytes % 5.9 % (1.7-9.3); Neutrophils # 4.3 K/mm3 (1.8-7.8); Neutrophils % 74.6 % (37.0-80.0); Platelet Count 196 K/mm3 (142-424); Red Blood Count 2.95 M/mm3 (4.20-5.40); Red Cell Distribution Width 14.7 % (11.5-17.5); White Blood Count 5.8 K/mm3 (4.8-10.8)
[2020-05-11 07:44] LABS: Chloride 111 mmol/L (98-107); Sodium 147 mmol/L (136-145)
[2020-05-11 07:45] LABS: Potassium 4.9 mmoL/L (3.5-5.1)
[2020-05-11 07:47] LABS: Blood Urea Nitrogen 67 mg/dl (7-17); Creatinine Clearance Estimated 21 mL/min (50-200); Estimated Glomerular Filt Rate 16 ml/min (>60); GFR (African American) 20 ML/MIN (>60)
[2020-05-11 07:48] LABS: Anion Gap 8.9 mEq/L (5-15); Calcium 8.5 mg/dl (8.4-10.2); Carbon Dioxide 32 mmol/L (22.0-30.0); Glucose 149 mg/dl (74-100)
[2020-05-11 08:10] LABS: Collection Time,Urine 24 hours; Creatinine 24 Hour,Urine 1275 mg/24hr (630-2500); Total Volume,Urine 2500 mL (600-1600)
[2020-05-11 08:11] LABS: Total Protein 24 Hour,Urine 6525 mg/24 hr (40-90); Total Volume,Urine 2500 mL (600-1600)
--- NOTE | 2020-05-11 09:03 | DIET.NUTRFU ---
PO intakes 75%, 8.8# weight loss from yesterday, 20# weight loss recorded t/o stay- 4 days. BG moderate- ~200, 2+ edema. Pt on cardiac/ADA diet. Continuing to monitor.
--- NOTE | 2020-05-11 09:29 | HMH.PNCARD ---
Subjective Date: 05/11/20 Time: 09:20 (.) Principal diagnosis: diastolic chf Interval history: This is a 55-year-old white female who was admitted to the hospital with worsening shortness of breath. She did diurese well with IV Lasix. The patient was taken for right heart cath yesterday which showed severe pulmonary hypertension with new equilibrium of cardiopulmonary pressure suggesting severe restrictive cardiomyopathy. She also has severe biventricular congestive heart failure. Dr. Buchanan suspects that the patient has a systemic disease affecting both her heart and kidneys, likely either amyloidosis or possible light chains gammopathy. She is severely hypoxemic and requires diuresis with Lasix. However given her renal function she will most likely not achieve adequate left-sided diuresis. The patient is currently awaiting transfer to [facility] to possibly undergo an endomyocardial biopsy, cardiac MRI or possible renal biopsy. Today she denies any chest pain or pressure. She did have some shortness of breath last night with hypoxia and the patient was placed back on BiPAP this morning and she is maintaining her oxygen saturations around 90%. On BiPAP she denies any shortness of breath and states that she is feeling well. She denies any fever, chills, nausea, vomiting or diarrhea. Exam Vital signs and Labs for Last 24 Hours: Temp Pulse Resp BP Pulse Ox 98.4 F 71 23 149/57 H 92 L 05/11/20 08:00 05/11/20 08:00 05/11/20 08:00 05/11/20 08:00 05/11/20 08:00 Laboratory Results - last 24 hr 05/09/20 09:39: Urine Collection Time 24, Urine Total Volume 2500 H, Urine Creatinine 51, Ur Creatinine 24 Hour 1275 05/09/20 12:56: Urine Total Volume 2500 H, Ur Total Protein 24 Hr 6525 H 05/09/20 16:10: POC Glucose 196 H 05/10/20 07:50: Uric Acid 7.9 H, C-Reactive Protein 36.1 H 05/10/20 12:10: ABG O2 Sat (Measured) 37 L, POC VBG O2 Sat (Yudith) 44 L 05/10/20 14:05: ESR > 140 H 05/10/20 16:17: POC Glucose 209 H 05/10/20 21:01: POC Glucose 171 H 05/11/20 05:27: POC Glucose 147 H 05/11/20 07:15: WBC 5.8, RBC 2.95 L, Hgb 8.3 L, Hct 27.2 L, MCV 92.2, MCH 28.1, MCHC 30.4 L, RDW 14.7, Plt Count 196, MPV 8.5, Neut % (Auto) 74.6, Lymph % (Auto) 17.2, [place] % (Auto) 5.9, Eos % (Auto) 2.0, Baso % (Auto) 0.3, Neut # (Auto) 4.3, Lymph # (Auto) 1.0, [place] # (Auto) 0.3, Eos # (Auto) 0.1, Baso # (Auto) 0.0 05/11/20 07:15: Sodium 147 H, Potassium 4.9, Chloride 111 H, Carbon Dioxide 32 H, Anion Gap 8.9, BUN 67 H, Creatinine 3.00 H, Estimated Creat Clear 21, Estimated GFR 16 L*, Est GFR ( Amer) 20 L, Glucose 149 H D, Calcium 8.5 I & O for Last 24 hours: Intake & Output 05/08/20 05/09/20 05/10/20 05/11/20 23:59 23:59 23:59 23:59 Intake Total 720 / 720 1080 / 1080 0 / 120 120 / 120 Output Total 2325 / 2325 3925 / 3925 2200 / 2200 1000 / 1000 Balance -1605 / -1605 -2845 / -2845 -2200 / -2080 -880 / -880 Weight 351 lb 9 oz 344 lb 8 oz 340 lb 2 oz 331 lb 3 oz Narrative: RHC shows: Severe pulmonary hypertension with near equilibration of cardiopulmonary pressures suggesting severe restrictive cardiomyopathy Severe biventricular congestive heart failure Low cardiac output state as evidenced by low described saturations PLAN 1. I suspect patient has a systemic disease affecting both heart and kidneys most likely either amyloidosis or possible light chain gammopathy. The rapid onset of renal failure combined with severe pulmonary hypertension with restrictive physiology numbers suggest a systemic deposition disease. 2. Patient is severely hypoxemic and requires additional diuresis. Given the degree of renal dysfunction I doubt oral diuretics will achieve adequate left-sided diuresis. Given the severity of patient's condition ideally she should be transferred to a tertiary center and undergo endomyocardial biopsy, possible rectal biopsy, possible cardiac MRI, or possible renal biopsy. 3. Until patient is able to be transferr
--- NOTE | 2020-05-11 10:11 | PC.NURSE ---
BIPAP REMOVED IN ORDER FOR PT TO EAT BREAKFAST AND TAKE MORNING MEDS, PT DID NO TOLERATE WELL, O2 DESAT IN TO THE MID 80'S, PT RESPIRATORY RATE INCREASED AND PT BECAME NOTICEABLY ANXIOUS, MORNING MEDS ADMINISTERED, RT CONTACTED TO PLACE PT BACK ON BIPAP, AT THIS TIME PT O2 SATURATION IS WITHIN DEFINED PARAMETERS 94%, PT APPEARS CALM AND COMFORTABLE. WILL CONTINUE TO MONITOR.
[2020-05-11 12:25] LABS: POC Glucose,Bedside 177 (70-110)
--- NOTE | 2020-05-11 16:20 | PC.NURSE ---
[facility] CALLED TO REPORT THERE WAS NO BED AVAILABLE, ALSO OF NOTE THIS NURSE WAS TOLD THAT SINCE PT IS REQUIRING BIPAP FOR O2 SUPPORT THE PT PCP WOULD NEED TO CONTACT THE PULMONARY TEAM AT [facility].
--- NOTE | 2020-05-11 17:54 | PC.NURSE ---
PT IS AO*4, ABLE TO MAKE NEEDS KNOWN TO STAFF, SHE HAS RESTED FOR MOST OF SHIFT, WAS BATHED AND LINENS CHANGED THIS AM, BIPAP WAS REMOVED *2 FOR MEALS, PT DID NOT TOLERATE WELL WITH NOTED DESATS INTO MID 80'S, AT TIME OF WRITING PT IS REQUIRING 8LNC TO SUSTAIN ADEQUATE O2 LEVELS WHILE EATING DINNER, RENTERIA CATH IS STILL IN PLACE WITH 400 ML OF OUTOUT NOTED AT TIME OF WRITING, NO NEEDS AT THIS TIME, WILL CONTINUE TO MONITOR.
[2020-05-11 20:52] LABS: POC Glucose,Bedside 191 (70-110)
[2020-05-11 22:04] LABS: POC Glucose,Bedside 155 (70-110)
[2020-05-12] VITALS (12 sets, daily range): BP systolic 131–156; BP diastolic 46–83; PULSE 50–95; RESP 18–28; TEMP 36.5–37; O2SAT 87–99; BMI 50.6
--- NOTE | 2020-05-12 05:28 | PC.NURSE ---
pt has rested well t/o shift, did get up to chair for a couple hours around 0300, has not complained of SOA or chest pain tonight, O2 sats have been 95-99% on Bipap, lung sounds diminished, HR 60-66, simons catheter patent draining clear yellow urine, 24 hour urine in progress
[2020-05-12 05:41] LABS: POC Glucose,Bedside 148 (70-110)
--- NOTE | 2020-05-12 07:29 | HMH.ACPN2 ---
Internal Medicine - PN: Subj *Date: 05/12/20 *Time: 07:29 Interval history: Beginning early yesterday morning and over the last 24 hours patient has required BiPAP to maintain her O2 sats in the 90s. Currently she has been transitioned to high flow nasal cannula to allow her to eat and seems to be tolerating that well although admits to persistent breathlessness. She has not been out of bed. Exam Vital signs and Labs for Last 24 Hours: Temp Pulse Resp BP Pulse Ox 98.6 F 62 24 131/58 L 92 L 05/12/20 04:00 05/12/20 04:00 05/12/20 04:00 05/12/20 04:00 05/12/20 07:07 Laboratory Results - last 24 hr 05/09/20 09:39: Urine Collection Time 24, Urine Total Volume 2500 H, Ur Creatinine 24 Hour 1275 05/09/20 12:56: Urine Total Volume 2500 H, Ur Total Protein 24 Hr 6525 H 05/11/20 07:15: WBC 5.8, RBC 2.95 L, Hgb 8.3 L, Hct 27.2 L, MCV 92.2, MCH 28.1, MCHC 30.4 L, RDW 14.7, Plt Count 196, MPV 8.5, Neut % (Auto) 74.6, Lymph % (Auto) 17.2, [place] % (Auto) 5.9, Eos % (Auto) 2.0, Baso % (Auto) 0.3, Neut # (Auto) 4.3, Lymph # (Auto) 1.0, [place] # (Auto) 0.3, Eos # (Auto) 0.1, Baso # (Auto) 0.0 05/11/20 07:15: Sodium 147 H, Potassium 4.9, Chloride 111 H, Carbon Dioxide 32 H, Anion Gap 8.9, BUN 67 H, Creatinine 3.00 H, Estimated Creat Clear 21, Estimated GFR 16 L*, Est GFR ( Amer) 20 L, Glucose 149 H D, Calcium 8.5 05/11/20 11:58: POC Glucose 177 H 05/11/20 17:15: POC Glucose 155 H 05/11/20 20:36: POC Glucose 191 H 05/12/20 05:27: POC Glucose 148 H I & O for Last 24 hours: Intake & Output 11/30/20 12/01/20 12/02/20 12/03/20 11:59 11:59 11:59 11:59 Intake Total 1200 / 1200 480 / 480 120 / 120 240 / 240 Output Total 3675 / 3675 3600 / 3600 1950 / 1950 Balance -2475 / -2475 -3120 / -3120 -1830 / -1830 240 / 240 Weight 344 lb 8 oz 340 lb 2 oz 331 lb 3 oz 334 lb 6 oz - Constitutional no acute distress - *Routine Respiratory Exam Present: CTA bilaterally, distant breath sounds - *Routine Cardiovascular Exam Present: RRR, Normal S1, Normal S2 - *Routine Abdominal Exam Present: soft, normoactive bowel sounds, obese - *Routine Extremities Exam Absent: cyanosis, clubbing Assessment and Plan (1) Biventricular CHF (congestive heart failure) Status: Acute Category: Medical Code(s): I50.82 - Biventricular heart failure (2) Pulmonary hypertension Status: Acute Category: Medical Code(s): I27.20 - Pulmonary hypertension, unspecified (3) Restrictive cardiomyopathy Status: Acute Category: Medical Code(s): I42.5 - Other restrictive cardiomyopathy (4) Chronic kidney disease, stage IV (severe) Status: Chronic Category: Medical Code(s): N18.4 - Chronic kidney disease, stage 4 (severe) (5) Acute on chronic respiratory failure with hypoxia Status: Acute Category: Medical Code(s): J96.21 - Acute and chronic respiratory failure with hypoxia (6) Cardiorenal syndrome Status: Acute Category: Medical Code(s): I13.10 - Hypertensive heart and chronic kidney disease without heart failure, with stage 1 through stage 4 chronic kidney disease, or unspecified chronic kidney disease (7) Anemia of chronic disease Status: Acute Category: Medical Code(s): D63.8 - Anemia in other chronic diseases classified elsewhere (8) Hypernatremia Status: Acute Category: Medical Code(s): E87.0 - Hyperosmolality and hypernatremia (9) BMI 50.0-59.9, adult Status: Acute Category: Medical Code(s): Z68.43 - Body mass index [BMI] 50.0-59.9, adult (10) Diabetes mellitus with hyperglycemia Status: Chronic Category: Medical Code(s): E11.65 - Type 2 diabetes mellitus with hyperglycemia (11) Hypertensive heart disease Status: Chronic Category: Medical Code(s): I11.9 - Hypertensive heart disease without heart failure (12) CAD (coronary artery disease) Status: Chronic Qualifiers: Coronary Disease-Associated Artery/Lesion type: crow artery [place] vs. transplanted heart: nativ
--- NOTE | 2020-05-12 07:42 | HMH.DCSUM ---
General - General Admission date:: 05/07/20 Discharge date: 05/13/20 HPI HPI: 57-year-old female with CHF and chronic kidney disease presented to the emergency department with progressive dyspnea over the last 48 hours that had reached the point where she was unable to ambulate more than 20 feet while wearing her supplemental oxygen without having to stop and rest. Patient states to recover she would begin hyperventilating. She became so short of breath that ultimately she contacted EMS. In route to the hospital patient was placed on 4 to 5 L of oxygen via the nasal cannula. Upon arrival to the emergency department patient was in respiratory distress. Patient had a respiratory acidosis and was placed on BiPAP which improved proved her oxygenation as well as patient's comfort. Work-up was consistent with acute congestive heart failure and patient was diuresed with Lasix 40 mg IV x1. This morning the patient reports that she feels comfortable while in bed and currently is sitting with nasal cannula in use. She denies fevers. She endorses orthopnea and cough. She has not had any chills. Patient lives alone. She does not have a scale at home to track her weight. She denies chest pain. She had noticed increased lower extremity edema over the last 48 hours. Hospital Course Hospital Course: Patient was admitted and started on IV Lasix with frequent monitoring of her BMP. Patient had excellent response to diuretic dosing of Lasix 40 mg IV twice daily. Patient admission creatinine was 4 and creatinine trended down during hospitalization. Patient was placed on fluid restrictions as well. Admission weight was 353 pounds. Patient was admitted with a diagnosis of acute on chronic diastolic congestive heart failure with acute renal failure on top of chronic kidney disease. This was the patient's third hospitalization in the last 6 weeks for symptoms of congestive heart failure. Cardiology service was consulted for the patient's recurring episodes of congestive heart failure. Patient underwent right heart catheterization on May 10. Findings are as follows: ANGIOGRAPHIC RESULTS Right atrial pressure 25 mmHg Right ventricular pressure 70/25 mmHg Pulmonary artery pressure 70/35 mmHg Pulmonary occlusion pressure between 30 and 35 mmHg Right atrial saturation 43% Pulmonary artery saturation 37% IMPRESSION Severe pulmonary hypertension with near equilibration of cardiopulmonary pressures suggesting severe restrictive cardiomyopathy Severe biventricular congestive heart failure Low cardiac output state as evidenced by low described saturations PLAN 1. I suspect patient has a systemic disease affecting both heart and kidneys most likely either amyloidosis or possible light chain gammopathy. The rapid onset of renal failure combined with severe pulmonary hypertension with restrictive physiology numbers suggest a systemic deposition disease. 2. Patient is severely hypoxemic and requires additional diuresis. Given the degree of renal dysfunction I doubt oral diuretics will achieve adequate left-sided diuresis. Given the severity of patient's condition ideally she should be transferred to a tertiary center and undergo endomyocardial biopsy, possible rectal biopsy, possible cardiac MRI, or possible renal biopsy. 3. Until patient is able to be transferred to a tertiary center she can be started on IV diuretics 4. Patient has a poor prognosis given the above 5. While it is possible she has a severe form of hypertensive heart disease causing the above condition, this is less likely given the rapidity of the multisystem organ failure and makes amyloidosis or other protein gammopathy more likely Due to the patient's severe biventricular heart failure cardiology service recommended transfer to tertiary facility for further work-up of restrictive cardiomyopathy. Patient's O2 sats decreased as hospitalization progressed
[2020-05-12 07:55] LABS: Basophils % 0.4 % (0.1-2.0); Eosinophils # 0.2 K/mm3 (0.0-0.4); Eosinophils % 2.9 % (0.1-12.0); Hematocrit 28.8 % (37.0-47.0); Hemoglobin 8.6 g/dL (12.2-16.2); Lymphocytes # 1.2 K/mm3 (0.7-4.5); Lymphocytes % 20.5 % (10-50); Mean Corpuscular HGB Conc 29.9 g/dL (31.8-35.4); Mean Corpuscular Hemoglobin 27.7 pg (27.0-31.2); Mean Corpuscular Volume 92.9 fl (81-99); Mean Platelet Volume 8.5 fl (7.4-10.4); Monocytes # 0.4 K/mm3 (0.1-1.0); Monocytes % 6.5 % (1.7-9.3); Neutrophils # 4.1 K/mm3 (1.8-7.8); Neutrophils % 69.6 % (37.0-80.0); Platelet Count 199 K/mm3 (142-424); Red Cell Distribution Width 14.2 % (11.5-17.5); White Blood Count 5.8 K/mm3 (4.8-10.8)
[2020-05-12 08:01] LABS: Chloride 109 mmol/L (98-107)
[2020-05-12 08:02] LABS: Potassium 4.8 mmoL/L (3.5-5.1); Sodium 145 mmol/L (136-145)
[2020-05-12 08:04] LABS: Blood Urea Nitrogen 72 mg/dl (7-17); Creatinine Clearance Estimated 19 mL/min (50-200); Estimated Glomerular Filt Rate 14 ml/min (>60); GFR (African American) 17 ML/MIN (>60)
[2020-05-12 08:05] LABS: Anion Gap 9.8 mEq/L (5-15); Calcium 8.4 mg/dl (8.4-10.2); Carbon Dioxide 31 mmol/L (22.0-30.0); Glucose 156 mg/dl (74-100)
--- NOTE | 2020-05-12 08:29 | HMH.PNCARD ---
Subjective Date: 05/12/20 Time: 08:15 Principal diagnosis: diastolic chf Interval history: This is a 55-year-old white woman who was admitted to the hospital for worsening shortness of breath. The patient has been being diuresed with IV Lasix. She does have a negative fluid balance overnight of -2200. She had a right cardiac catheterization completed which showed severe pulmonary hypertension with new equilibrium of cardio pulmonary pressures suggesting severe restrictive cardiomyopathy. She also had evidence of biventricular congestive heart failure. We do suspect that the patient has a systemic disease affecting both her heart and kidneys, likely either amyloidosis or possibly a light chain gammopathy. Her renal function is still elevated at 3.3 today which is a little worse than yesterday. She is a currently awaiting transfer to [facility] for possible endomyocardial biopsy, cardiac MRI, or a possible renal biopsy. She was initially scheduled to have an outpatient work-up but her medical condition has declined and transfer would be best for this patient. She was on the BiPAP all day yesterday. Today she is on a Vapotherm mask. She denies any chest pain or pressure. She states her shortness of breath is stable on the Vapotherm mask. She denies any fever, chills, nausea, vomiting or diarrhea. She states that her edema is improving as well. Exam Vital signs and Labs for Last 24 Hours: Temp Pulse Resp BP Pulse Ox 97.7 F 71 19 134/46 L 94 L 05/12/20 08:00 05/12/20 08:00 05/12/20 08:00 05/12/20 08:00 05/12/20 08:00 Laboratory Results - last 24 hr 05/11/20 11:58: POC Glucose 177 H 05/11/20 17:15: POC Glucose 155 H 05/11/20 20:36: POC Glucose 191 H 05/12/20 05:27: POC Glucose 148 H 05/12/20 07:42: WBC 5.8, RBC 3.10 L, Hgb 8.6 L, Hct 28.8 L, MCV 92.9, MCH 27.7, MCHC 29.9 L, RDW 14.2, Plt Count 199, MPV 8.5, Neut % (Auto) 69.6, Lymph % (Auto) 20.5, [place] % (Auto) 6.5, Eos % (Auto) 2.9, Baso % (Auto) 0.4, Neut # (Auto) 4.1, Lymph # (Auto) 1.2, [place] # (Auto) 0.4, Eos # (Auto) 0.2, Baso # (Auto) 0.0 05/12/20 07:42: Sodium 145, Potassium 4.8, Chloride 109 H, Carbon Dioxide 31 H, Anion Gap 9.8, BUN 72 H, Creatinine 3.30 H, Estimated Creat Clear 19, Estimated GFR 14 L*, Est GFR ( Amer) 17 L*, Glucose 156 H, Calcium 8.4 I & O for Last 24 hours: Intake & Output 05/09/20 05/10/20 05/11/20 05/12/20 23:59 23:59 23:59 23:59 Intake Total 1080 / 1080 0 / 120 240 / 360 600 / 600 Output Total 3925 / 3925 2200 / 2200 1400 / 1400 Balance -2845 / -2845 -2200 / -2080 -1160 / -1040 600 / 600 Weight 344 lb 8 oz 340 lb 2 oz 331 lb 3 oz 334 lb 6 oz Narrative: Telemetry strip shows sinus rhythm with a rate of 78. - Constitutional no acute distress, morbidly obese - *Routine HEENT Exam Head: Present: normocephalic, atraumatic Eye: Present: EOMI, PERRL ENT: Present: mucous membranes moist - *Routine Neck Exam Present: supple, full ROM, normal carotid upstroke. Absent: JVD, carotid bruit, lymphadenopathy - *Routine Respiratory Exam Present: CTA bilaterally - *Routine Cardiovascular Exam Present: RRR, Normal S1, Normal S2, murmur - *Routine Abdominal Exam Present: soft, normoactive bowel sounds. Absent: tenderness, distended - *Routine Extremities Exam Present: edema (BLEs, improving ), full ROM, pulses intact, normal capillary refill. Absent: cyanosis, clubbing - *Routine Skin Exam Present: intact, warm. Absent: erythema, rash - *Routine Neurological Exam Present: alert, oriented X3, CN II-XII intact. Absent: sensory deficit, motor deficit Progress Note: A&P (1) Biventricular CHF (congestive heart failure) Status: Acute (2) Pulmonary hypertension Status: Acute (3) Restrictive cardiomyopathy Status: Acute (4) Chronic kidney disease, stage IV (severe) Status: Chronic (5) Acute on chronic respiratory failure with hypoxia Status: Acute (6) Cardiorenal syndrome Status: Acute
--- NOTE | 2020-05-12 09:00 | CA_ITS ---
APPROVED REPORT Bilateral Lower Extremity Venous Study for DVT. X Ray Equipment Tester: ADOLPH Indications Shortness of breath CAD worsening hypoxia, diabetes, HTN, hx CVA, CHF, severe PHTN Risk Factors Obesity CAD Vein Imaging CFV (R): compressive, spontaneous, phasic, augmentation FEM (R): compressive, spontaneous, phasic, augmentation POP (R): compressive, spontaneous, phasic, augmentation PTV (R): Compressible GSV (R): compressive, spontaneous, phasic, augmentation Peroneals (R):Compressible GAS (R): Not Visualized CFV (L): compressive, spontaneous, phasic, augmentation FEM (L): compressive, spontaneous, phasic, augmentation POP (L): compressive, spontaneous, phasic, augmentation PTV (L): Compressible GSV (L): compressive, spontaneous, phasic, augmentation SSV (L): Compressible Peroneals (L):Compressible GAS (L): Not Visualized Findings No evidence of DVT or superficial thrombophlebitis in the veins scanned of the right lower extremity. No evidence of DVT or superficial thrombophlebitis in the veins scanned of the left lower extremity. Electronically signed by : Krishna Sepulveda MD 05/12/2020 18:03:41
--- NOTE | 2020-05-12 09:42 | XR_ITS ---
PROCEDURE: XR CHEST PORTABLE CLINICAL HISTORY: dyspnea COMPARISON: CT CTAC CTA-CHEST from 11/10/2012 CR XR CHEST 2V from 04/15/2020 CR XR CHEST 2V from 05/07/2020 CR XR CHEST PORTABLE from 05/08/2020 FINDINGS: There are low lung volumes. There is cardiomegaly with mild pulmonary venous congestion. CHF has shown some improvement. There was poor inspiration with vascular crowding in the lung bases. Patchy density is present in the left midlung and may be due to an area of atelectasis or infiltrate. No acute bony findings. IMPRESSION: Improvement in CHF with atelectasis or infiltrate in the left midlung Dictated by: Krishna Sepulveda MD 05/12/2020 16:05 Krishna Sepulveda MD in [place] 05/12/2020 16:05
[2020-05-12 12:06] LABS: POC Glucose,Bedside 201 (70-110)
[2020-05-12 12:14] LABS: Antistreptolysin O Ab 421.3 IU/mL (0.0-200.0); Myoglobin 68 ng/mL (25-58)
[2020-05-12 14:36] LABS: Albumin, U 46.8 % (.); Alpha-2-Globulin, U 11.5 % (.); Beta Globulin, U 16.4 % (.); Gamma Globulin, U 20.3 % (.); M-Spike, % 5.4 % (Not Observed); Prot,24hr calculated 6723 mg/24 hr (30-150)
[2020-05-12 15:26] LABS: Albumin 2.4 g/dL (2.9-4.4); Alpha-1-Globulin 0.3 g/dL (0.0-0.4); Alpha-2-Globulin 1.3 g/dL (0.4-1.0); Gamma Globulin 1.1 g/dL (0.4-1.8); Protein, Total 6.2 g/dL (6.0-8.5)
[2020-05-12 15:39] LABS: POC Glucose,Bedside 188 (70-110)
[2020-05-12 16:11] LABS: Cytoplasmic (C-ANCA) <1:20 titer (Neg:<1:20)
--- NOTE | 2020-05-12 18:25 | PC.NURSE ---
Pt alert and oriented x 4. Continues on vapotherm at 30 nL and 60%. 24 hr urine taken to lab at 1505. S1,S2, NSR on tele. Lungs cta. BS x 4. Indwelling cath in place. Will cont to mx. Still awaiting bed at at this time for transfer.
[2020-05-12 21:21] LABS: POC Glucose,Bedside 179 (70-110)
[2020-05-13] VITALS: BP 123/55; PULSE 60; PULSE 64; RESP 25; TEMP 36.4; O2SAT 94
[2020-05-13 02:30] VITALS: RESP 22; RESP 27
--- NOTE | 2020-05-13 03:55 | PC.NURSE ---
Pt is alert and oriented x4. No acute changes noted from previous shift. Pt has been restless this shift. States she is anxious and can not sleep. Also states I am number 22 on [facility]'s list. This is scary to me. Encouraged pt to try and get some rest this am. Tolerated Vapotherm and BiPap well this shift with no complaints. Denies SOA. Bilateral lungs noted diminished upon auscultation. color television console monitor noted NSR. +2 non-pitting edema noted to bilateral hand and BLE. Pharm VTE in place. New IV started this shift, x1 attempt. Now located in right upper arm. FC site noted C/D/I. Urine noted clear and bright yellow in color. VSS. Remains safe. Call light within reach. Will continue to monitor.
[2020-05-13 04:00] VITALS: BP 157/70; PULSE 60; PULSE 66; RESP 23; TEMP 36.7; O2SAT 96
[2020-05-13 05:07] VITALS: BMI 50.6
[2020-05-13 05:13] LABS: Protein,Total,Urine 268.9 mg/dL (Not Estab.)
[2020-05-13 05:13] LABS: Perinuclear (P-ANCA) <1:20 titer (Neg:<1:20)
[2020-05-13 05:49] LABS: POC Glucose,Bedside 166 (70-110)
--- NOTE | 2020-05-13 07:12 | HMH.ACPN2 ---
Internal Medicine - PN: Subj *Date: 05/13/20 *Time: 07:12 Interval history: Patient has no new complaints. She reports slight improvement in dyspnea. She denies cough or chest pain. Patient remains on Vapotherm high flow nasal cannula with slight decrease in flow to 25 L/min with FiO2 of 60%. Exam Vital signs and Labs for Last 24 Hours: Temp Pulse Resp BP Pulse Ox 98.0 F 66 23 157/70 H 96 05/13/20 04:00 05/13/20 04:00 05/13/20 04:00 05/13/20 04:00 05/13/20 04:00 Laboratory Results - last 24 hr 05/10/20 13:10: Urine Total Protein 268.9, Ur Protein 24 Hr Calc 6723 H, Urine Albumin (%) 46.8, U Yexgp-1-Tsyewekt (%) 5.0, U Yoobd-6-Kywaqdwl (%) 11.5, U Beta Globulin (%) 16.4, U Gamma Globulin (%) 20.3, U PEP M-José Manuel % 5.4 H, Urine PEP Note Comment, Ur IEP M-José Manuel mg/24hr 363.0 H 05/10/20 14:05: Myoglobin 68 H, c-ANCA Antibody <1:20, Atypical p-ANCA <1:20, p-ANCA Antibody <1:20, Anti-Streptolysin O Ab 421.3 H 05/11/20 07:15: Total Protein (PEP) 6.2, Albumin (PEP) 2.4 L, Globulin (PEP) 3.8, Albumin/Globulin Ratio 0.6 L, Gjmlu-4-Pebquzfsf 0.3, Irwsl-9-Ebqqllcci 1.3 H, Beta Globulins 1.1, Gamma Globulins 1.1, M-José Manuel Not observed, PEP Note Comment 05/12/20 07:42: WBC 5.8, RBC 3.10 L, Hgb 8.6 L, Hct 28.8 L, MCV 92.9, MCH 27.7, MCHC 29.9 L, RDW 14.2, Plt Count 199, MPV 8.5, Neut % (Auto) 69.6, Lymph % (Auto) 20.5, [place] % (Auto) 6.5, Eos % (Auto) 2.9, Baso % (Auto) 0.4, Neut # (Auto) 4.1, Lymph # (Auto) 1.2, [place] # (Auto) 0.4, Eos # (Auto) 0.2, Baso # (Auto) 0.0 05/12/20 07:42: Sodium 145, Potassium 4.8, Chloride 109 H, Carbon Dioxide 31 H, Anion Gap 9.8, BUN 72 H, Creatinine 3.30 H, Estimated Creat Clear 19, Estimated GFR 14 L*, Est GFR ( Amer) 17 L*, Glucose 156 H, Calcium 8.4 05/12/20 11:46: POC Glucose 201 H 05/12/20 15:31: POC Glucose 188 H 05/12/20 20:53: POC Glucose 179 H 05/13/20 05:28: POC Glucose 166 H I & O for Last 24 hours: Intake & Output 05/10/20 05/11/20 05/12/20 05/13/20 11:59 11:59 11:59 11:59 Intake Total 480 / 480 120 / 120 720 / 720 750 / 750 Output Total 3600 / 3600 1950 / 1950 1450 / 1450 Balance -3120 / -3120 -1830 / -1830 720 / 720 -700 / -700 Weight 340 lb 2 oz 331 lb 3 oz 334 lb 6 oz 334 lb 6 oz Narrative: Patient appears comfortable in bed and less anxious/dyspneic than yesterday. Lungs have distant breath sounds throughout with no focal rales, rhonchi, wheezes. Heart has a regular rate and rhythm. Abdomen is soft and obese. Lower extremities are edematous Assessment and Plan (1) Biventricular CHF (congestive heart failure) Status: Acute Category: Medical Code(s): I50.82 - Biventricular heart failure (2) Pulmonary hypertension Status: Acute Category: Medical Code(s): I27.20 - Pulmonary hypertension, unspecified (3) Restrictive cardiomyopathy Status: Acute Category: Medical Code(s): I42.5 - Other restrictive cardiomyopathy (4) Chronic kidney disease, stage IV (severe) Status: Chronic Category: Medical Code(s): N18.4 - Chronic kidney disease, stage 4 (severe) (5) Acute on chronic respiratory failure with hypoxia Status: Acute Category: Medical Code(s): J96.21 - Acute and chronic respiratory failure with hypoxia (6) Cardiorenal syndrome Status: Acute Category: Medical Code(s): I13.10 - Hypertensive heart and chronic kidney disease without heart failure, with stage 1 through stage 4 chronic kidney disease, or unspecified chronic kidney disease (7) Anemia of chronic disease Status: Acute Category: Medical Code(s): D63.8 - Anemia in other chronic diseases classified elsewhere (8) Hypernatremia Status: Acute Category: Medical Code(s): E87.0 - Hyperosmolality and hypernatremia (9) BMI 50.0-59.9, adult Status: Acute Category: Medical Code(s): Z68.43 - Body mass index [BMI] 50.0-59.9, adult (10) Diabetes mellitus with hyperglycemia Status: Chronic Category: Medical Code(s): E11.65 - Type 2 diabetes mellitus with hy
[2020-05-13 07:50] LABS: Basophils % 0.3 % (0.1-2.0); Eosinophils # 0.2 K/mm3 (0.0-0.4); Hemoglobin 8.4 g/dL (12.2-16.2); Lymphocytes % 17.7 % (10-50); Mean Corpuscular HGB Conc 30.1 g/dL (31.8-35.4); Mean Corpuscular Hemoglobin 27.7 pg (27.0-31.2); Mean Corpuscular Volume 91.9 fl (81-99); Mean Platelet Volume 8.7 fl (7.4-10.4); Monocytes # 0.3 K/mm3 (0.1-1.0); Monocytes % 5.8 % (1.7-9.3); Neutrophils # 4.2 K/mm3 (1.8-7.8); Neutrophils % 73.2 % (37.0-80.0); Platelet Count 202 K/mm3 (142-424); Red Blood Count 3.05 M/mm3 (4.20-5.40); Red Cell Distribution Width 14.2 % (11.5-17.5); White Blood Count 5.7 K/mm3 (4.8-10.8)
[2020-05-13 07:53] LABS: Chloride 107 mmol/L (98-107); Sodium 144 mmol/L (136-145)
[2020-05-13 07:54] LABS: Potassium 4.7 mmoL/L (3.5-5.1)
[2020-05-13 07:56] LABS: Blood Urea Nitrogen 67 mg/dl (7-17); Creatinine Clearance Estimated 20 mL/min (50-200); Estimated Glomerular Filt Rate 16 ml/min (>60); GFR (African American) 19 ML/MIN (>60)
[2020-05-13 07:57] LABS: Anion Gap 10.7 mEq/L (5-15); Calcium 8.3 mg/dl (8.4-10.2); Carbon Dioxide 31 mmol/L (22.0-30.0); Glucose 145 mg/dl (74-100)
[2020-05-13 08:00] VITALS: BP 165/53; PULSE 70; PULSE 74; RESP 20; TEMP 36.6; O2SAT 91
--- NOTE | 2020-05-13 08:29 | HMH.PNCARD ---
Subjective Date: 05/13/20 Time: 08:29 Principal diagnosis: diastolic chf Interval history: 55-year-old white female in bed in no acute distress. She continues on Vapotherm at 25 L/min. We are in a holding pattern pending transfer to for further evaluation. Exam Vital signs and Labs for Last 24 Hours: Temp Pulse Resp BP Pulse Ox 97.9 F 74 20 165/53 H 91 L 05/13/20 08:00 05/13/20 08:00 05/13/20 08:00 05/13/20 08:00 05/13/20 08:00 Laboratory Results - last 24 hr 05/10/20 13:10: Urine Total Protein 268.9, Ur Protein 24 Hr Calc 6723 H, Urine Albumin (%) 46.8, U Sehxy-3-Hrwdanna (%) 5.0, U [place]-9-Gsyocjnx (%) 11.5, U Beta Globulin (%) 16.4, U Gamma Globulin (%) 20.3, U PEP M-José Manuel % 5.4 H, Urine PEP Note Comment, Ur IEP M-José Manuel mg/24hr 363.0 H 05/10/20 14:05: Myoglobin 68 H, c-ANCA Antibody <1:20, Atypical p-ANCA <1:20, p-ANCA Antibody <1:20, Anti-Streptolysin O Ab 421.3 H 05/11/20 07:15: Total Protein (PEP) 6.2, Albumin (PEP) 2.4 L, Globulin (PEP) 3.8, Albumin/Globulin Ratio 0.6 L, Cdbly-0-Maloizgop 0.3, Auzaj-5-Tplfmujbh 1.3 H, Beta Globulins 1.1, Gamma Globulins 1.1, M-José Manuel Not observed, PEP Note Comment 05/12/20 11:46: POC Glucose 201 H 05/12/20 15:31: POC Glucose 188 H 05/12/20 20:53: POC Glucose 179 H 05/13/20 05:28: POC Glucose 166 H 05/13/20 06:00: Sodium 144, Potassium 4.7, Chloride 107, Carbon Dioxide 31 H, Anion Gap 10.7, BUN 67 H, Creatinine 3.10 H, Estimated Creat Clear 20, Estimated GFR 16 L*, Est GFR ( Amer) 19 L*, Glucose 145 H, Calcium 8.3 L 05/13/20 07:30: WBC 5.7, RBC 3.05 L, Hgb 8.4 L, Hct 28.0 L, MCV 91.9, MCH 27.7, MCHC 30.1 L, RDW 14.2, Plt Count 202, MPV 8.7, Neut % (Auto) 73.2, Lymph % (Auto) 17.7, [place] % (Auto) 5.8, Eos % (Auto) 3.0, Baso % (Auto) 0.3, Neut # (Auto) 4.2, Lymph # (Auto) 1.0, [place] # (Auto) 0.3, Eos # (Auto) 0.2, Baso # (Auto) 0.0 I & O for Last 24 hours: Intake & Output 05/10/20 05/11/20 05/12/20 05/13/20 11:59 11:59 11:59 11:59 Intake Total 480 / 480 120 / 120 720 / 720 990 / 990 Output Total 3600 / 3600 1950 / 1950 1450 / 1450 Balance -3120 / -3120 -1830 / -1830 720 / 720 -460 / -460 Weight 340 lb 2 oz 331 lb 3 oz 334 lb 6 oz 334 lb 6 oz - Constitutional no acute distress - *Routine Respiratory Exam Present: CTA bilaterally - *Routine Cardiovascular Exam Present: RRR - *Routine Extremities Exam Present: edema. Absent: cyanosis, clubbing - *Routine Neurological Exam Present: alert, oriented X3 Progress Note: A&P (1) Biventricular CHF (congestive heart failure) Status: Acute (2) Pulmonary hypertension Status: Acute (3) Restrictive cardiomyopathy Status: Acute (4) Chronic kidney disease, stage IV (severe) Status: Chronic (5) Acute on chronic respiratory failure with hypoxia Status: Acute (6) Cardiorenal syndrome Status: Acute (7) Anemia of chronic disease Status: Acute (8) Hypernatremia Status: Acute (9) BMI 50.0-59.9, adult Status: Acute (10) Diabetes mellitus with hyperglycemia Status: Chronic (11) Hypertensive heart disease Status: Chronic (12) CAD (coronary artery disease) Status: Chronic (13) History of CVA (cerebrovascular accident) Status: Chronic Assessment and Plan for All Diagnoses:: 1. Cardiorenal syndrome with multi organ dysfunction including heart, lungs and kidneys of unknown etiology. Positive antistreptolysin antibody, elevated M spike in urine with significant proteinuria noted. Awaiting transfer to for further evaluation. 2. Hypoxemia, patient remains on high output Vapotherm therapy. 3. Severe pulmonary hypertension with severe biventricular congestive heart failure, improving with diuretic therapy. Creatinine 3.1 today (slightly better) after additional Lasix given yesterday. 4. Diabetes mellitus 5. Morbid obesity with BMI greater than 50. 6. Coronary disease with history of RCA stenting in June,, continues on aspirin and Plavix. Favian
[2020-05-13 09:25] LABS: Procalcitonin 0.119 ng/mL (0.0-2.0)
[2020-05-13 10:41] LABS: Anti-DNase B Strep Antibodies 290 U/mL (0-120)
[2020-05-13 11:40] LABS: POC Glucose,Bedside 178 (70-110)
[2020-05-13 12:00] VITALS: BP 149/68; PULSE 60; PULSE 71; RESP 22; TEMP 36.6; O2SAT 91
--- NOTE | 2020-05-13 12:52 | DIET.NUTRFU ---
PO intakes 75-100%, weight stable at this time, 20# weight loss total t/o stay. BG moderate- ~180, 2+ edema.
--- NOTE | 2020-05-13 14:10 | PC.NURSE ---
Spoke with Madelaine at regarding patient being transferred to for biopsy of kidney. Dr Buchanan had spoken with earlier in the week regarding this biopsy. Madelaine reached out to me today regarding pt transfer for biopsy and there were requirements necessary for her transfer. One being to hold aspirin and plavix for 5 days. I transferred Madelaine to pt's nurse, Jamila Berry, for more information. Apx hour (today) after initial call, Madelaine called me back stating that the physicians she was working with did not know that the patient condition had worsened and that her PCP was trying to get her transferred to . Madelaine stated upon learning this information, it was the decision of the IR MD, to cancel the outpatient testing and when patient was transferred the biopsy could be completed at that time. Madelaine Real [phone] if anyone would need to contact her regarding this information or patient care.
[2020-05-13 15:54] LABS: POC Glucose,Bedside 195 (70-110)
[2020-05-13 16:00] VITALS: BP 167/60; PULSE 70; PULSE 73; RESP 22; TEMP 36.6; O2SAT 90
--- NOTE | 2020-05-13 20:59 | PC.NURSE ---
CALLED BACK WITH BED ASSIGNMENT. LEAH WAS THE NURSE THAT TOOK REPORT. PT DID NOT LEAVE FACILITY TILL 184. PT REQUESTED TO HAVE SOMETHING FOR HER NERVES THIS SHIFT. PT HAS BEEN VERY EMOTIONAL THIS SHIFT. O2 SATURATION HAS BEEN 90-92% ON VAPOTHERM. LUNG SOUNDS DIMINISHED. ABDOMEN SOFT/LARGE WITH HYPOACTIVE BOWEL SOUNDS. ALERT AND ORIENTED X4.
[2020-05-21 06:11] LABS: Protein,Total,Urine 326.9
[2020-05-21 06:14] LABS: M-Spike, % NOT OBSERVED; M-Spike, mg/24 hr NOT OBSERVED
[2020-05-26 15:40] LABS: Antinuclear Antibodies (ANA) NEGATIVE
== END 2020-05-13 18:40 | disposition short-term general hospital (02) | DRG 286 ==
LOC: ER 19:44 → 2ND 21:28
PROVIDERS: Internal Medicine; Nurse Practitioner Family; Admitting Provider Family Medicine; Emergency Provider Physician Assistant; PCP Family Medicine; Visit Provider Family Medicine
PROC: 4A023N6 Measurement of Cardiac Sampling and Pressure, Right Heart, Percutaneous Approach (ICD-10-PCS; principal; 2020-05-10 11:15)
DX: I13.0 Hypertensive heart and chronic kidney disease with heart failure and stage 1 through stage 4 chronic kidney disease, or unspecified chronic kidney disease (principal); I50.33 Acute on chronic diastolic (congestive) heart failure; J96.21 Acute and chronic respiratory failure with hypoxia; N18.4 Chronic kidney disease, stage 4 (severe); Z68.43 Body mass index [BMI] 50.0-59.9, adult; E11.22 Type 2 diabetes mellitus with diabetic chronic kidney disease; E11.65 Type 2 diabetes mellitus with hyperglycemia; E66.01 Morbid (severe) obesity due to excess calories; I34.0 Nonrheumatic mitral (valve) insufficiency; E87.5 Hyperkalemia; I27.20 Pulmonary hypertension, unspecified; Z88.2 Allergy status to sulfonamides; Z95.5 Presence of coronary angioplasty implant and graft; Z79.02 Long term (current) use of antithrombotics/antiplatelets; Z79.4 Long term (current) use of insulin; I50.82 Biventricular heart failure; I42.5 Other restrictive cardiomyopathy; Z86.73 Personal history of transient ischemic attack (TIA), and cerebral infarction without residual deficits
CPT/HCPCS: 36415; 71045; 71046; 80048; 80053; 80061; 80076; 81001; 82570; 82803; 82810; 82962; 83516; 83874; 83880; 84145; 84155; 84156; 84165; 84166; 84484; 84550; 85025; 85651; 86038; 86060; 86140; 86215; 86256; 86328; 86431; 87581; 87633; 87798; 93005; 93451; 93970; 93976; 94660; 94760; 94761; 96374; 96375; 99152; 99285; C1894; J1644; J1956

== ENCOUNTER 2020-06-26 15:25 | Emergency (ER) | payer MEDICARE, MEDICAID, SELFPAY ==
[2020-06-26 15:26] VITALS: BP 112/52; PULSE 58; RESP 16; TEMP 37.1; O2SAT 96; BMI 47.1
--- NOTE | 2020-06-26 15:28 | ECG_ITS ---
APPROVED REPORT Exam: Resting ECG HR:56 bpm ECG Measurements Heart Rate 56 AXES NH 182 P 12 QRSd 88 QRS -15 QT 526 T 30 QTc 507 Conclusion Sinus bradycardia Voltage criteria for left ventricular hypertrophy Prolonged QT Abnormal ECG Electronically signed by : Domingo Pineda, 06/27/2020 19:37:34
[2020-06-26 15:29] VITALS: BMI 48.6
--- NOTE | 2020-06-26 15:30 | XR_ITS ---
PROCEDURE: XR CHEST PORTABLE Referring Doctor: Angel Becker Patient Age:55Y CLINICAL HISTORY: weakness History of CHF. Nonsmoker COMPARISON: CT CTAC CTA-CHEST from 11/10/2012 CR XR CHEST 2V from 05/07/2020 CR XR CHEST PORTABLE from 05/08/2020 CR XR CHEST PORTABLE from 05/12/2020 FINDINGS: AP portable upright CXR. A generous cardiomegaly with left ventricular configuration. Of however on today's study the lungs appear well expanded and clear with no CHF. Previous studies showed recurrent episodes of such but today's study the vascularity appears satisfactory. Minimal linear density towards left lung base most likely reflects some atelectasis. Hazy appearance towards left CP angle likely reflect some chronic changes and possibly pleural changes although difficult to totally exclude a small left pleural effusion. Chest wall unremarkable. 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 Cardiomegaly . Pulmonary Vascularity appears satisfactory today with no CHF radiographically . No focal pneumonia Only scant minimal linear atelectasis or scarring left lung base . Slight hazy appearance towards left CP angle I suspect most likely reflects some chronic pleural changes. With similar appearance previously. Dictated by: Anupam Kaba MD 06/26/2020 15:54 Anupam Kaba MD in [place] 06/26/2020 15:54
--- NOTE | 2020-06-26 15:50 | PC.NURSE ---
iv fluids stopped due to pt's hx of chf
[2020-06-26 15:53] LABS: Basophils % 0.3 % (0.1-2.0); Eosinophils # 0.2 K/mm3 (0.0-0.4); Eosinophils % 1.7 % (0.1-12.0); Hematocrit 29.4 % (37.0-47.0); Hemoglobin 9.6 g/dL (12.2-16.2); Lymphocytes # 1.1 K/mm3 (0.7-4.5); Lymphocytes % 9.9 % (10-50); Mean Corpuscular HGB Conc 32.5 g/dL (31.8-35.4); Mean Corpuscular Hemoglobin 27.8 pg (27.0-31.2); Mean Corpuscular Volume 85.4 fl (81-99); Mean Platelet Volume 11.6 fl (7.4-10.4); Monocytes # 0.5 K/mm3 (0.1-1.0); Monocytes % 4.4 % (1.7-9.3); Neutrophils # 9.4 K/mm3 (1.8-7.8); Neutrophils % 83.6 % (37.0-80.0); Platelet Count 283 K/mm3 (142-424); Red Blood Count 3.44 M/mm3 (4.20-5.40); Red Cell Distribution Width 14.9 % (11.5-17.5); White Blood Count 11.2 K/mm3 (4.8-10.8)
[2020-06-26 15:56] VITALS: BP 130/64; PULSE 57; RESP 16; O2SAT 99
[2020-06-26 16:01] LABS: Chloride 97 mmol/L (98-107); Sodium 136 mmol/L (136-145)
--- NOTE | 2020-06-26 16:03 | [facility].EDGENADL ---
ED Disposition Clinical Impression: Chronic kidney disease, stage IV (severe), Chronic hyperkalemia Anemia in chronic kidney disease Qualifiers: Chronic kidney disease stage: stage 4 (severe) Qualified Code(s): N18.4 - Chronic kidney disease, stage 4 (severe); D63.1 - Anemia in chronic kidney disease HTN (hypertension) Qualifiers: Hypertension type: essential hypertension Qualified Code(s): I10 - Essential (primary) hypertension Diabetes Qualifiers: Diabetes mellitus type: type 1 Diabetes mellitus complication status: with kidney complications Diabetes mellitus complication detail: with chronic kidney disease Chronic kidney disease stage: stage 4 (severe) Qualified Code(s): E10.22 - Type 1 diabetes mellitus with diabetic chronic kidney disease; N18.4 - Chronic kidney disease, stage 4 (severe) Renal failure Qualifiers: Renal failure chronicity: acute on chronic Acute renal failure type: unspecified Chronic kidney disease stage: stage 4 (severe) Qualified Code(s): N17.9 - Acute kidney failure, unspecified; N18.4 - Chronic kidney disease, stage 4 (severe) Disposition: Xfer [facility] Condition on Discharge: Serious Referrals: Domingo Courtney MD [Primary Care Provider] - - Critical Care Critical Care Time: No Attestation: On 06/26/20, the high probability of a clinically significant, sudden or life threatening deterioration of the following system(s) required my full and direct attention, intervention and personal management. The time I documented below is in addition to time spent performing reported procedures but includes the following listed in this critical care notation. Medical Decision Making - Medical Records Medical records reviewed: Yes: I reviewed the patient's medical records. - Elbert Inquiry Pt receiving controlled substance: Yes Elbert was queried for this patient: No Reason not queried -: Elbert login issues Risks and benefits of using a controlled substance: were discussed with pt by me Vital Signs: 06/26/20 15:26 06/26/20 15:56 06/26/20 16:26 Temperature 98.7 F Temperature Source Oral Pulse Rate [Radial] 58 L 57 L 54 L Respiratory Rate 16 16 16 Blood Pressure [Right Arm] 112/52 L 130/64 126/57 L Blood Pressure Mean [Right Arm] 72 86 80 Blood Pressure Position [Right Arm] Sitting 02 Sat by Pulse Oximetry 96 99 96 Oxygen Delivery Method Room Air Nasal Cannula Oxygen Flow Rate (LPM) 2 06/26/20 17:18 Temperature Temperature Source Pulse Rate [Radial] 54 L Respiratory Rate 18 Blood Pressure [Right Arm] 136/64 Blood Pressure Mean [Right Arm] 88 Blood Pressure Position [Right Arm] 02 Sat by Pulse Oximetry 100 Oxygen Delivery Method Nasal Cannula Oxygen Flow Rate (LPM) 2 - Lab Data Lab Results 06/26/20 15:35: WBC 11.2 H, RBC 3.44 L, Hgb 9.6 L, Hct 29.4 L, MCV 85.4, MCH 27.8, MCHC 32.5, RDW 14.9, Plt Count 283, MPV 11.6 H, Neut % (Auto) 83.6 H, Lymph % (Auto) 9.9 L, [place] % (Auto) 4.4, Eos % (Auto) 1.7, Baso % (Auto) 0.3, Neut # (Auto) 9.4 H, Lymph # (Auto) 1.1, [place] # (Auto) 0.5, Eos # (Auto) 0.2, Baso # (Auto) 0.0 06/26/20 15:35: Sodium 136, Potassium 8.5 H*, Chloride 97 L, Carbon Dioxide 26, Anion Gap 21.5 H, BUN 138 H*, Creatinine 4.40 H, Estimated Creat Clear 14, Estimated GFR 10 L*, Est GFR ( Amer) 13 L*, Glucose 295 H, Calcium 8.1 L, Total Bilirubin 2.2 H, AST 67 H, ALT 21, Alkaline Phosphatase 69, Troponin I 0.02, Total Protein 10.3 H D, Albumin 4.8, Globulin 5.5 H, Albumin/Globulin Ratio 0.9 L 06/26/20 15:35: Lactate 1.6 06/26/20 15:35: SARS-CoV-2 IgG Ab (Rapid) Negative, SARS-CoV-2 IgM Ab (Rapid) Negative 06/26/20 16:30: Potassium 5.0 D Result diagrams: 06/26/20 15:35 06/26/20 16:30 Orders (Tests/Meds): ED MEDICATIONS Generic Name Dose Route Start Last Admin Trade Name Freq PRN Reason Stop Dose Admin Calcium Gluconate 1,000 mg/ 35 mls @ 100 mls/hr 06/26/20 18:19 06/26/20 18:28 Sodium Chloride IV 06/26/20 18:39 100 mls/hr ONCE
[2020-06-26 16:04] LABS: Alanine Aminotransferase 21 U/L (12-78); Albumin Level 4.8 g/dl (3.5-5.0); Albumin/Globulin Ratio 0.9 (1.1-1.8); Alkaline Phosphatase 69 U/L (38-126); Anion Gap 21.5 mEq/L (5-15); Aspartate Amino Transferase 67 U/L (14-36); Bilirubin,Total 2.2 mg/dl (0.2-1.3); Calcium 8.1 mg/dl (8.4-10.2); Carbon Dioxide 26 mmol/L (22.0-30.0); Creatinine Clearance Estimated 14 mL/min (50-200); Estimated Glomerular Filt Rate 10 ml/min (>60); GFR (African American) 13 ML/MIN (>60); Globulin 5.5 g/dL (1.3-3.2); Glucose 295 mg/dl (74-100); Lactic Acid 1.6 mmol/L (0.7-2.1); Total Protein,Serum 10.3 g/dl (6.3-8.2)
[2020-06-26 16:12] LABS: Blood Urea Nitrogen 138 mg/dl (7-17); Potassium 8.5 mmoL/L (3.5-5.1)
[2020-06-26 16:16] LABS: Troponin I 0.02 ng/ml (0.00-0.034)
[2020-06-26 16:26] VITALS: BP 126/57; PULSE 54; RESP 16; O2SAT 96
[2020-06-26 16:27] LABS: Coronavirus 19 IgG Antibody Negative (Negative); Coronavirus 19 IgM Antibody Negative (Negative)
[2020-06-26 17:18] VITALS: BP 136/64; PULSE 54; RESP 18; O2SAT 100
--- NOTE | 2020-06-26 18:23 | PC.NURSE ---
Calling [facility]
--- NOTE | 2020-06-26 18:28 | PC.NURSE ---
speaking with [facility] physician at this time
--- NOTE | 2020-06-26 18:30 | PC.NURSE ---
pt and family updated on plan of care
--- NOTE | 2020-06-26 18:34 | PC.NURSE ---
Dr. Blandon accepted pt to [facility]
--- NOTE | 2020-06-26 19:01 | PC.NURSE ---
report to [facility]
[2020-06-26 19:02] VITALS: BP 176/67; PULSE 59; RESP 18; TEMP 36.8; O2SAT 96
[2020-06-26 19:10] LABS: Troponin I < 0.01 ng/ml (0.00-0.034)
== END 2020-06-26 19:29 | disposition short-term general hospital (02) ==
PROVIDERS: Emergency Provider Emergency Medicine; PCP Family Medicine
DX: N18.4 Chronic kidney disease, stage 4 (severe) (principal); E87.5 Hyperkalemia; E11.65 Type 2 diabetes mellitus with hyperglycemia; D63.1 Anemia in chronic kidney disease; I10 Essential (primary) hypertension; E78.5 Hyperlipidemia, unspecified; Z01.84 Encounter for antibody response examination; I25.10 Atherosclerotic heart disease of native coronary artery without angina pectoris; Z79.899 Other long term (current) drug therapy; Z88.2 Allergy status to sulfonamides
CPT/HCPCS: 36415; 71045; 80053; 83605; 84132; 84484; 85025; 86328; 93005; 96365; 96375; 99284; J2405